=== PATIENT | female | born 1930 | race Hispanic/Latino ===

== ENCOUNTER 2016-07-30 18:20 | Inpatient (IN) | payer MEDICARE ==
[2016-07-30 18:20] VITALS: PULSE 161; BMI 28.6
[2016-07-30] MEDS ORDERED: Albuterol-Ipratrop 3 mg / 0.5 (3 ml) UD ONE (18:46)
[2016-07-30] MEDS ORDERED: Albuterol-Ipratrop 3 mg / 0.5 (3 ml) UD INH STA (18:50)
[2016-07-30 19:14] LABS: ABG ALLEN TEST YES; ARTERIAL BLOOD GAS O2 SAT 98.5 % (95-98); ARTERIAL BLOOD GAS PCO2 35 mm/Hg (35-45); ARTERIAL BLOOD GAS PH 7.46 (7.35-7.45); ARTERIAL BLOOD GAS PO2 81 mm/Hg (80-100)
[2016-07-30 19:33] LABS: BASO # 0.1 K/uL (0.0-0.2); BASO % 0.6 % (0.0-2.0); EOS # 0.2 K/uL (0.0-0.7); EOS % 1.9 % (0.0-4.0); HEMOGLOBIN 12.5 g/dL (12.0-16.0); LYMPH # 1.7 K/uL (1.0-4.3); LYMPH % 14.9 % (20.0-40.0); MEAN CELL VOLUME 92.2 fl (81.0-99.0); MEAN CORPUSCULAR HEMOGLOBIN 29.5 pg (27.0-31.0); MEAN CORPUSCULAR HGB CONC 31.9 g/dL (33.0-37.0); MEAN PLATELET VOLUME 7.7 fl (7.2-11.7); MONO # 1.5 K/uL (0.0-0.8); MONO % 12.7 % (0.0-10.0); NEUT # 8.2 K/uL (1.8-7.0); NEUT % 69.9 % (50.0-75.0); NRBC % 0.2 % (0.0-0.0); RBC 4.24 Mil/uL (3.80-5.20); RED CELL DISTRIBUTION WIDTH 14.1 % (11.5-14.5); WHITE BLOOD COUNT 11.7 K/uL (4.8-10.8)
[2016-07-30 19:45] LABS: INR 1.3 (0.9-1.2); PARTIAL THROMBOPLASTIN TIME 26.5 Seconds (25.6-37.1); PROTHROMBIN TIME 15.1 Seconds (9.8-13.1)
--- NOTE | 2016-07-30 19:46 | ED PDOC ---
HPI: SOB/CHF/COPD Time Seen by Provider: 07/30/16 18:31 Chief Complaint (Nursing): Cough, Cold, Congestion Chief Complaint (Provider): Cough History Per: Patient History/Exam Limitations: no limitations Onset/Duration Of Symptoms: Days (2 days) Current Symptoms Are (Timing): Still Present Associated Symptoms: denies: Fever, Chest Pain, Ankle/Leg Swelling Additional Complaint(s): Geraldine Mark, an 85 year old female, who has a PMHx of atrial fibrillation, Congestive Heart failure, coronary artery disease and a pacemaker presents to the ED with a cough(x2 days). The patient states that her cough is productive of yellow phlegm with no hemoptysis. She reports that she feels as though her chest is congested and she has a little bit of a sore throat. The patient states that she in in compliance with her medication. Denies increase of leg swelling, fever and outright chest pain. She reports definite fatigue and SOB. PMD: Dr. Gooden Past Medical History Reviewed: Historical Data, Nursing Documentation, Vital Signs Vital Signs: Last Vital Signs Temp 98.2 F 08/05/16 12:00 Pulse 60 08/05/16 12:00 Resp 31 H 08/05/16 12:00 BP 116/54 L 08/05/16 12:00 Pulse Ox 100 08/05/16 12:00 - Medical History PMH: Anemia, Anxiety, Arthritis, Atrial Fibrillation, CAD, Cardia Arrhythmia, CHF, Depression, Diverticulitis, HTN, Hypercholesterolemia, Pneumonia Denies: Chronic Kidney Disease - Surgical History Surgical History: Pacemaker - Family History Family History: States: Hypertension - Social History Current smoker - smoking cessation education provided: No Ex-Smoker (has not smoked in the last 12 months): No - Immunization History Hx Tetanus Toxoid Vaccination: No Hx Influenza Vaccination: No Hx Pneumococcal Vaccination: No - Home Medications Home Medications: Ambulatory Orders Medication Instructions Recorded Carvedilol [Coreg] 3.125 mg PO BID 07/18/15 Furosemide [Lasix] 20 mg PO DAILY 07/18/15 Potassium Chloride [K-Dur 20 mEq 20 meq PO DAILY 07/18/15 ER Tab] Simvastatin 20 mg PO DAILY 07/18/15 Azithromycin [Zithromax] 250 mg PO DAILY #3 tab 08/01/16 Ciprofloxacin 0.3% [Ciloxan 0.3% 1 drop OD Q4 bottle 08/01/16 Ophth SOLN] guaiFENesin/Dextromethorphan 1 tab PO BID #20 tab 08/01/16 [Mucinex-DM 600-30 mg] risperiDONE [RisperDAL Tab] 0.25 mg PO HS tab 08/01/16 - Allergies Allergies/Adverse Reactions: Allergies Allergy/AdvReac Type Severity Reaction Status Date / Time No Known Allergies Allergy Verified 07/30/16 18:25 Review of Systems ROS Statement: Except As Marked, All Systems Reviewed And Found Negative Constitutional: Positive for: Other (Fatigue). Negative for: Fever ENT: Positive for: Throat Pain Cardiovascular: Negative for: Chest Pain Respiratory: Positive for: Cough, Shortness of Breath Musculoskeletal: Negative for: Other (Leg swelling) Physical Exam - Reviewed Nursing Documentation Reviewed: Yes Vital Signs Reviewed: Yes - Physical Exam Appears: Positive for: Non-toxic, Uncomfortable Head Exam: Positive for: ATRAUMATIC, NORMOCEPHALIC Skin: Positive for: Normal Color, Warm, Dry Eye Exam: Positive for: Normal appearance, EOMI, PERRL ENT: Positive for: Normal ENT Inspection, Pharynx Is (Pharynx is clear), Other ( Mucous membranes are dry.) Neck: Positive for: Normal, Painless ROM, Supple Cardiovascular/Chest: Positive for: Regular Rate, Rhythm (Heart sounds distant with regular rate and rhythm.), Chest Non Tender. Negative for: Tachycardia Respiratory: Positive for: Rhonchi (Diffuse ronchi), Wheezing (Expiratory wheezing), Respiratory Distress (Mild respiratory distress). Negative for: Accessory Muscle Use Gastrointestinal/Abdominal: Positive for: Normal Exam, Bowel Sounds, Soft. Negative for: Tenderness, Guarding, Rebound Back: Positive for: Normal Inspection Extremity: Positive for: Pedal Edema (Trace bilateral lower leg edema.). Negative for: Tenderness, Deformity Neurologic/Psych: Positive for: Alert, Oriented, Gait - Laboratory Results Result Diagrams: 08/05/16 04:15 08/05/16 04:15 - ECG ECG: Positive for: Interpreted By Id ECG Rhythm: Positive for: Atrial Paced O2 Sat by Pulse Oximetry: 94 (RA) Pulse Ox Interpretation: Normal - Radiology X-Ray: Interpreted by Id X-Ray Interpretation: Infiltrates Medical Decision Making Medical Decision Makin:31 Initial Impression: 85 year old female presenting with cough and SOB Differentials: Pneumonia, CHF, Bronchitis, Pleural effusions, Acute coronary syndrome Initial plan: * Type and Screen * ABG Shock Panel * EKG * Natriuretic Peptide * CMP * Troponin 1 * Udip * CBC * Partial Thromboplastin * Prothrombin time * CXR * Blood Culture * Duoneb 3 mg/0.5mg (3ml) UD 6ml INH * Peak Flow Pre/Post Tx. Pre/post treatment * Reevaluation CXR demonstrated infiltrate DW Dr Johnson FP resident admitting for Dr Gooden. Pt hospitalized to telemetry for monitoring given multiple comorbidities and age as risk factors for complications. Antibiotics initiated in ER Scribe Attestation Documented by Nazia Cabrera acting as a scribe for Hailey Medrano MD. Provider Attestation All medical record entries made by the Scribe were at my direction and personally dictated by me. I have reviewed the chart and agree that the record accurately reflects my personal performance of the history, physical exam, medical decision making, and the department course for this patient. I have also personally directed, reviewed, and agree with the discharge instructions and disposition. Disposition - Clinical Impression Clinical Impression: Pneumonia, community acquired, CHF (congestive heart failure) - Patient ED Disposition Is Patient to be Admitted: Yes Counseled Patient/Family Regarding: Studies Performed, Diagnosis - Disposition Disposition Time: 20:00 Condition: GUARDED - Pt Status Changed To: Hospital Disposition Of: Inpatient - Admit Certification Admit to Inpatient:: After my assessment, the patient will require hospitalization for at least two midnights. This is because of the severity of symptoms shown, intensity of services needed, and/or the medical risk in this patient being treated as an outpatient. - POA Present On Arrival: None
[2016-07-30 19:51] LABS: ALB/GLOB RATIO 1.2 (1.0-2.1); ALBUMIN 3.6 g/dL (3.5-5.0); ALT/SGPT 36 U/L (9-52); AST/SGOT 29 U/L (14-36); BLOOD UREA NITROGEN 12 mg/dl (7-17); CALCIUM 8.6 mg/dL (8.4-10.2); GFR AFRICAN-AMERICAN > 60; GFR NON-AFRICAN AMERICAN > 60
[2016-07-30 20:02] LABS: B-TYPE NATRIURETIC PEPTIDE 8210 pg/ml (0-900)
[2016-07-30] MEDS ORDERED: cefTRIAXone (Rocephin) 1 gm Inj ONE (20:28)
--- NOTE | 2016-07-30 21:29 | CP.PCM.HP ---
<Senait Storm - Last Filed: 07/31/16 02:30> History of Present Illness - History of Present Illness History of Present Illness: CC: Constant productive cough 85F with significant cardiac history p/w persistent cough productive of yellowish sputum since Friday. -ve: cough worsening with lying down or at night, fevers, chills, N/V, diarrhea , sick contacts, abd pain, dysuria, chest pain, palpitations, recent hospitalization, recent antibiotic use, recent travel, sick contacts, ear pain, throat pain, orthopnea, extremity edema Right eye is red with purulent discharge that patient reports has been that way for a couple days, but denies pain on movement or loss in visual acuity. PMD: Giacomo Cane Flume Watcher: Dr Jennifer DAVIS-65: 1 PMH: h/o A-fib, dCHF, IHSS, Inferior wall MD, HTN, HLD, RCA stent, diverticulitis PSH: Rt knee for patellar fx, PCI of RCA, AICD Smoke: Never ALL: NKDA CHERYL: See Med Rec ED COURSE VSS: 36.7- 79- 131/50- 16- 94% CBC: 11.7>12.5/39.1<254 Lactate: 1.1 BNP: 8210H Trop #1: 0.0400 CMP: 135/4.4- 101/24- 12/0.7, Gluc- 81, Ca- 8.6, TBili- 0.3, ALP/AST/ALT- 107/29 /36, TProt/Alb- 6.6/3.6 BCx: PENDING CXR: not officially read, but when compared to prior angles/heart borders are clear, no venous congestion noted and no discrete infiltrate noted as read by me Albuterol x1 Azithromycin x1 Rocephin x1 Present on Admission - Present on Admission Any Indicators Present on Admission: No Review of Systems - Review of Systems All systems: reviewed and no additional remarkable complaints except - Respiratory Respiratory: Cough, Chest Congestion Past Patient History - Tetanus Immunizations Tetanus Immunization: Unknown - Past Medical History & Family History Past Medical History?: Yes - Past Social History Smoking Status: Never Smoked - CARDIAC Hx Atrial Fibrillation: Yes Hx Cardia Arrhythmia: Yes Hx Congestive Heart Failure: Yes Hx Hypercholesterolemia: Yes Hx Hypertension: Yes Hx Pacemaker: Yes - PULMONARY Hx Pneumonia: Yes - NEUROLOGICAL Hx Neurological Disorder: Yes (dizziness) - HEENT Hx HEENT Problems: No - RENAL Hx Chronic Kidney Disease: No - ENDOCRINE/METABOLIC Hx Endocrine Disorders: No - HEMATOLOGICAL/ONCOLOGICAL Hx Anemia: Yes - INTEGUMENTARY Hx Dermatological Problems: No - MUSCULOSKELETAL/RHEUMATOLOGICAL Hx Arthritis: Yes - GASTROINTESTINAL Hx Diverticulitis: Yes - GENITOURINARY/GYNECOLOGICAL Hx Genitourinary Disorders: No (hx UTI) - PSYCHIATRIC Hx Anxiety: Yes Hx Depression: Yes - SURGICAL HISTORY Hx Orthopedic Surgery: Yes (RIGHT KNEE SURGERY) Other/Comment: CARDIAC CATH - ANESTHESIA Hx Anesthesia: Yes Hx Anesthesia Reactions: No Hx Malignant Hyperthermia: No Meds Allergies/Adverse Reactions: Allergies Allergy/AdvReac Type Severity Reaction Status Date / Time No Known Allergies Allergy Verified 07/30/16 18:25 Physical Exam - Constitutional Appears: Well, Non-toxic, No Acute Distress - Head Exam Head Exam: ATRAUMATIC, NORMAL INSPECTION - Eye Exam Eye Exam: Conjunctival injection (RIGHT eye w/ associated purulent discharge), EOMI, Normal appearance, PERRL - ENT Exam ENT Exam: Mucous Membranes Moist, Normal Exam, Normal Oropharynx - Neck Exam Neck exam: Positive for: Normal Inspection. Negative for: Lymphadenopathy - Respiratory Exam Respiratory Exam: Rhonchi, NORMAL BREATHING PATTERN (LEFT chest site for AICD). absent: Rales, Wheezes, Respiratory Distress - Cardiovascular Exam Cardiovascular Exam: REGULAR RHYTHM (Paced), Systolic Murmur. absent: JVD - GI/Abdominal Exam GI & Abdominal Exam: Normal Bowel Sounds, Soft. absent: Tenderness - Extremities Exam Extremities exam: Positive for: full ROM, normal capillary refill, normal inspection, pedal edema (TRACE), pedal pulses present - Back Exam Back exam: absent: CVA tenderness (L), CVA tenderness (R) - Neurological Exam Neurological exam: Alert, Oriented x3 - Psychiatric Exam Psychiatric exam: Flat Affect, Normal Mood - Skin Skin Exam: Normal Color, Warm Results - Vital Signs Recent Vital Signs: Last Vital Signs Temp 36.7 C 07/30/16 18:25 Pulse 72 07/30/16 21:20 Resp 16 07/30/16 21:20 BP 116/51 L 07/30/16 21:20 Pulse Ox 98 07/30/16 21:20 - Labs Result Diagrams: 07/30/16 19:10 07/30/16 19:10 Assessment & Plan (1) Pneumonia, community acquired Assessment and Plan: Clinical presentation, history, and physical exam most consistent with CAP. CURB -65: 1. - Rocephin 1g, IV, Daily - Azithromycin 500mg, IV, Daily - f/u BCx - Incentive Spirometry - Ambulate Status: Acute (2) Bacterial conjunctivitis of right eye Assessment and Plan: Ciprofloxacin 0.3% 1-2gtts, Q2H x2 days then Q4H for remaining 5 days Status: Acute (3) DVT prophylaxis Assessment and Plan: Lovenox 40mg, SC, HS Status: Acute (4) History of atrial fibrillation Assessment and Plan: Currently atrial sensed pacemaker. - Resume home medication Status: Chronic (5) CHF (congestive heart failure) Assessment and Plan: Clinically patient does not have an acute exacerbation of heart failure. In addition, CXR not c/w venous congestion when compared to prior CXR, despite BNP level being elevated. Echo (11/23/2014) showing abnormal relaxation pattern as well as decrease in EF (45-50%). - Resume Coreg - Resume Lasix Status: Chronic (6) Hypertension Assessment and Plan: Chronic, stable. - c/w Coreg - c/w Lasix Status: Chronic <Asim Gooden - Last Filed: 08/01/16 06:46> Results - Vital Signs Recent Vital Signs: Last Vital Signs Temp 98.9 F 08/01/16 05:00 Pulse 89 08/01/16 05:00 Resp 22 08/01/16 05:00 BP 108/54 L 08/01/16 05:00 Pulse Ox 92 L 08/01/16 05:00 - Labs Result Diagrams: 07/31/16 06:15 07/31/16 06:15 Labs: Laboratory Results - last 24 hr 07/31/16 07/31/16 07/31/16 06:15 06:15 07:04 WBC 11.8 H RBC 4.15 Hgb 12.3 Hct 38.2 MCV 92.0 MCH 29.5 MCHC 32.1 L RDW 13.9 Plt Count 249 MPV 8.1 Neut % (Auto) 74.2 Lymph % (Auto) 12.2 L [place] % (Auto) 12.1 H Eos % (Auto) 1.2 Baso % (Auto) 0.3 Neut # 8.8 H Lymph # 1.4 [place] # 1.4 H Eos # 0.1 Baso # 0.0 Sodium 139 Potassium 4.1 Chloride 105 Carbon Dioxide 25 Anion Gap 13 BUN 10 Creatinine 0.7 Est GFR ( Amer) > 60 Est GFR (Non-Af Amer) > 60 Random Glucose 91 Calcium 8.7 Troponin I 0.0450 Procalcitonin 0.06 L 07/31/16 11:59 WBC RBC Hgb Hct MCV MCH MCHC RDW Plt Count MPV Neut % (Auto) Lymph % (Auto) [place] % (Auto) Eos % (Auto) Baso % (Auto) Neut # Lymph # [place] # Eos # Baso # Sodium Potassium Chloride Carbon Dioxide Anion Gap BUN Creatinine Est GFR ( Amer) Est GFR (Non-Af Amer) Random Glucose Calcium Troponin I 0.0340 Procalcitonin Attending/Attestation - Attestation I have personally seen and examined this patient.: Yes I have fully participated in the care of the patient.: Yes I have reviewed all pertinent clinical information: Yes
[2016-07-30] MEDS: Enoxaparin 40 mg Syringe SC SCH (23:38)
[2016-07-31] MEDS ORDERED: guaiFENesin 200 mg/10 ml Syrup UD PO ONE (02:36)
[2016-07-31] MEDS: Ciprofloxacin 0.3% OPTH SOLN OD SCH ×10 (04:49→22:37)
[2016-07-31] MEDS ORDERED: Sodium Chloride 3% for Inhalation 4 ML VIAL.NEB IH PRN (05:21)
[2016-07-31 07:02] LABS: BASO % 0.3 % (0.0-2.0); EOS # 0.1 K/uL (0.0-0.7); EOS % 1.2 % (0.0-4.0); HEMOGLOBIN 12.3 g/dL (12.0-16.0); LYMPH # 1.4 K/uL (1.0-4.3); LYMPH % 12.2 % (20.0-40.0); MEAN CORPUSCULAR HEMOGLOBIN 29.5 pg (27.0-31.0); MEAN CORPUSCULAR HGB CONC 32.1 g/dL (33.0-37.0); MEAN PLATELET VOLUME 8.1 fl (7.2-11.7); MONO # 1.4 K/uL (0.0-0.8); MONO % 12.1 % (0.0-10.0); NEUT # 8.8 K/uL (1.8-7.0); NEUT % 74.2 % (50.0-75.0); RBC 4.15 Mil/uL (3.80-5.20); RED CELL DISTRIBUTION WIDTH 13.9 % (11.5-14.5); WHITE BLOOD COUNT 11.8 K/uL (4.8-10.8)
[2016-07-31 07:06] LABS: BLOOD UREA NITROGEN 10 mg/dl (7-17); CALCIUM 8.7 mg/dL (8.4-10.2); GFR AFRICAN-AMERICAN > 60; GFR NON-AFRICAN AMERICAN > 60
[2016-07-31] MEDS ORDERED: Pneumococcal 23-Valent Vaccine IM ONE (07:34)
[2016-07-31] MEDS ORDERED: Patient's Own Med (Simvastatin [Simvastatin] 20 MG) PO SCH (09:00)
[2016-07-31] MEDS: Azithromycin 500 MG in Sodium Chloride 0.9% 250 ML IVPB SCH (09:00)
--- NOTE | 2016-07-31 09:03 | CP.PCM.PN ---
<Sammy Ontiveros - Last Filed: 07/31/16 17:26> Subjective - Date & Time of Evaluation Date of Evaluation: 07/31/16 Time of Evaluation: 07:25 - Subjective Subjective: Patient seen and examined this AM. Patient continues to have nonproductive cough. Complaining of mild headache. Denies any chest pain, dyspnea, nausea, vomiting, abdominal pain, pedal edema. Objective - Vital Signs/Intake and Output Vital Signs (last 24 hours): Temp Pulse Resp BP Pulse Ox 100.6 F H 80 19 93/51 L 95 07/31/16 05:50 07/31/16 04:52 07/31/16 04:52 07/31/16 04:52 07/31/16 04:52 - Medications Medications: Current Medications Albuterol/Ipratropium (Duoneb 3 Mg/0.5 Mg (3 Ml) Ud) 3 ml INH RQID [facility] Atorvastatin Calcium (Lipitor) 10 mg PO DAILY [facility] Carvedilol (Coreg) 3.125 mg PO BID [facility] Ciprofloxacin (Ciloxan 0.3% Ophth Soln) 1 drop OD Q2 [facility] Stop: 08/02/16 04:00 Last Admin: 07/31/16 06:00 Dose: Not Given Enoxaparin Sodium (Lovenox) 40 mg SC HS [facility] PRN Reason: Protocol Last Admin: 07/30/16 23:38 Dose: 40 mg Furosemide (Lasix) 20 mg PO DAILY [facility] Ceftriaxone Sodium 1 gm/ (Sodium Chloride) 100 mls @ 100 mls/hr IVPB DAILY [facility] Azithromycin 500 mg/ Sodium (Chloride) 250 mls @ 250 mls/hr IVPB DAILY [facility] Potassium Chloride (K-Dur 20 Meq Er Tab) 20 meq PO DAILY [facility] Risperidone (Risperdal Tab) 0.5 mg PO HS [facility] Last Admin: 07/30/16 23:38 Dose: 0.5 mg - Labs Labs: 07/31/16 06:15 07/31/16 06:15 PT 15.1 Seconds (9.8-13.1) H 07/30/16 19:10 INR 1.3 (0.9-1.2) H 07/30/16 19:10 APTT 26.5 Seconds (25.6-37.1) 07/30/16 19:10 - Constitutional Appears: Other (dry cough, no respiratory distress. ) - Eye Exam Pupil Exam: absent: Miosis Additional comments: purulent discharge, scleral injection, mild periobital erythema - Respiratory Exam Respiratory Exam: Wheezes (right mid lung wheezing and crackles, left chest decreased breath sounds.). absent: Respiratory Distress - Cardiovascular Exam Cardiovascular Exam: REGULAR RHYTHM, +S1, +S2 - GI/Abdominal Exam GI & Abdominal Exam: Soft, Normal Bowel Sounds. absent: Distended, Tenderness - Neurological Exam Neurological Exam: Awake, CN II-XII Intact - Psychiatric Exam Psychiatric exam: Flat Affect - Skin Skin Exam: Dry, Intact Assessment and Plan - Assessment and Plan (Free Text) Assessment: (1) Pneumonia, community acquired Assessment and Plan: Improved, continues to have cough, non productive with wheezing/crackles. CURB- 65: 1. - Rocephin 1g, IV, Daily - Azithromycin 500mg, IV, Daily - f/u BCx, sputum culture - mycoplasma IgG - Incentive Spirometry - duonebs QID - Ambulate -cxr reviewed, WBC: 11.8 -cbc/bmp in AM Status: Acute (2) Bacterial conjunctivitis of right eye Assessment and Plan: DAY 2: Ciprofloxacin 0.3% 1-2gtts, Q2H x2 days then Q4H for remaining 5 days Status: Acute (3) DVT prophylaxis Assessment and Plan: Lovenox 40mg, SC, HS Status: Acute (4) History of atrial fibrillation Assessment and Plan: Currently atrial sensed pacemaker. - Resume home medication Status: Chronic (5) CHF (congestive heart failure) Assessment and Plan: Not in acute exacerbation, BNP elevated however chest xray not c/w and exam is consistent with pneumonia not CHF. Echo (11/23/2014) showing abnormal relaxation pattern as well as decrease in EF (45-50%). - continue Coreg 3.125mg BID - hold Lasix 20mg - Potassium 20meq daily - simvastatin 20meq qhs -Cardiology consult: Dr. Rodriguez, recommendations appreciated. Status: Chronic (6) Hypertension Assessment and Plan: Chronic, stable. - c/w Coreg - c/w Lasix Status: Chronic (7) Biplolar disorder -risperdal 0.25 qhs <Asim Gooden - Last Filed: 08/01/16 06:48> Objective - Vital Signs/Intake and Output Vital Signs (last 24 hours): Temp Pulse Resp BP Pulse Ox 98.9 F 89 22 108/54 L 92 L 08/01/16 05:00 08/01/16 05:00 08/01/16 05:00 08/01/16 05:00 08/01/16 05:00 Intake and Output: 07/31/16 08/01/16 18:59 06:59 Intake Total 1550 Balance 1550 - Medications Medications: Current Medications Acetaminophen (Tylenol 325mg Tab) 650 mg PO Q6 PRN PRN Reason: Headache Albuterol/Ipratropium (Duoneb 3 Mg/0.5 Mg (3 Ml) Ud) 3 ml INH RQID [facility] Last Admin: 07/31/16 19:23 Dose: 3 ml Atorvastatin Calcium (Lipitor) 10 mg PO DAILY [facility] Last Admin: 07/31/16 09:07 Dose: 10 mg Carvedilol (Coreg) 3.125 mg PO BID [facility] Last Admin: 07/31/16 09:06 Dose: Not Given Ciprofloxacin (Ciloxan 0.3% [facility] Soln) 1 drop OD Q2 [facility] Stop: 08/02/16 04:00 Last Admin: 08/01/16 06:11 Dose: 1 drop Enoxaparin Sodium (Lovenox) 40 mg SC HS [facility] PRN Reason: Protocol Last Admin: 07/31/16 21:06 Dose: 40 mg Ceftriaxone Sodium 1 gm/ (Sodium Chloride) 100 mls @ 100 mls/hr IVPB DAILY [facility] Last Admin: 07/31/16 09:00 Dose: 100 mls/hr Azithromycin 500 mg/ Sodium (Chloride) 250 mls @ 250 mls/hr IVPB DAILY [facility] Last Admin: 07/31/16 09:00 Dose: 250 mls/hr Potassium Chloride (K-Dur 20 Meq Er Tab) 20 meq PO DAILY [facility] Last Admin: 07/31/16 09:06 Dose: 20 meq Risperidone (Risperdal Tab) 0.25 mg PO HS [facility] Last Admin: 07/31/16 21:05 Dose: 0.25 mg - Labs Labs: 07/31/16 06:15 07/31/16 06:15 PT 15.1 Seconds (9.8-13.1) H 07/30/16 19:10 INR 1.3 (0.9-1.2) H 07/30/16 19:10 APTT 26.5 Seconds (25.6-37.1) 07/30/16 19:10 Attending/Attestation - Attestation I have personally seen and examined this patient.: Yes I have fully participated in the care of the patient.: Yes I have reviewed all pertinent clinical information, including history, physical exam and plan: Yes
[2016-07-31] MEDS: Albuterol-Ipratrop 3 mg / 0.5 (3 ml) UD INH SCH ×4 (09:05→19:23)
[2016-07-31] MEDS: Potassium Chloride 20 mEq ER Tab PO SCH (09:06)
--- NOTE | 2016-07-31 09:30 | CP.PCM.CON ---
History of Present Illness - History of Present Illness History of Present Illness: Full Note Dictated Pneumonia IHSS H/O A Fib (was ablated) S/P AICD Implant with a DDD Pacemaker S/P RCA Stenting > 2 yrs back LV diastolic dysfunction with LV Failure (Chr) Stable from cardiac point of view [facility] Past Patient History - Tetanus Immunizations Tetanus Immunization: Unknown - Past Medical History & Family History Past Medical History?: Yes - Past Social History Smoking Status: Never Smoked - CARDIAC Hx Atrial Fibrillation: Yes Hx Cardia Arrhythmia: Yes Hx Congestive Heart Failure: Yes Hx Hypercholesterolemia: Yes Hx Hypertension: Yes Hx Pacemaker: Yes - PULMONARY Hx Pneumonia: Yes - NEUROLOGICAL Hx Neurological Disorder: Yes (dizziness) - HEENT Hx HEENT Problems: No - RENAL Hx Chronic Kidney Disease: No - ENDOCRINE/METABOLIC Hx Endocrine Disorders: No - HEMATOLOGICAL/ONCOLOGICAL Hx Anemia: Yes - INTEGUMENTARY Hx Dermatological Problems: No - MUSCULOSKELETAL/RHEUMATOLOGICAL Hx Arthritis: Yes - GASTROINTESTINAL Hx Diverticulitis: Yes - GENITOURINARY/GYNECOLOGICAL Hx Genitourinary Disorders: No (hx UTI) - PSYCHIATRIC Hx Anxiety: Yes Hx Depression: Yes - SURGICAL HISTORY Hx Orthopedic Surgery: Yes (RIGHT KNEE SURGERY) Other/Comment: CARDIAC CATH - ANESTHESIA Hx Anesthesia: Yes Hx Anesthesia Reactions: No Hx Malignant Hyperthermia: No Meds Allergies/Adverse Reactions: Allergies Allergy/AdvReac Type Severity Reaction Status Date / Time No Known Allergies Allergy Verified 07/30/16 18:25 - Medications Medications: Current Medications Albuterol/Ipratropium (Duoneb 3 Mg/0.5 Mg (3 Ml) Ud) 3 ml INH RQID [facility] Last Admin: 07/31/16 09:05 Dose: 3 ml Atorvastatin Calcium (Lipitor) 10 mg PO DAILY [facility] Last Admin: 07/31/16 09:07 Dose: 10 mg Carvedilol (Coreg) 3.125 mg PO BID [facility] Last Admin: 07/31/16 09:06 Dose: Not Given Ciprofloxacin (Ciloxan 0.3% Oph Soln) 1 drop OD Q2 [facility] Stop: 08/02/16 04:00 Last Admin: 07/31/16 08:04 Dose: 1 drop Enoxaparin Sodium (Lovenox) 40 mg SC HS [facility] PRN Reason: Protocol Last Admin: 07/30/16 23:38 Dose: 40 mg Ceftriaxone Sodium 1 gm/ (Sodium Chloride) 100 mls @ 100 mls/hr IVPB DAILY [facility] Last Admin: 07/31/16 09:00 Dose: 100 mls/hr Azithromycin 500 mg/ Sodium (Chloride) 250 mls @ 250 mls/hr IVPB DAILY [facility] Last Admin: 07/31/16 09:00 Dose: 250 mls/hr Potassium Chloride (K-Dur 20 Meq Er Tab) 20 meq PO DAILY [facility] Last Admin: 07/31/16 09:06 Dose: 20 meq Risperidone (Risperdal Tab) 0.5 mg PO HS [facility] Last Admin: 07/30/16 23:38 Dose: 0.5 mg Results - Vital Signs Recent Vital Signs: Last Vital Signs Temp 98.1 F 07/31/16 09:00 Pulse 71 07/31/16 09:06 Resp 18 07/31/16 09:00 BP 91/47 L 07/31/16 09:06 Pulse Ox 95 07/31/16 09:00 - Labs Result Diagrams: 07/31/16 06:15 07/31/16 06:15 Labs: Laboratory Results - last 24 hr 07/31/16 07/31/16 06:15 06:15 WBC 11.8 H RBC 4.15 Hgb 12.3 Hct 38.2 MCV 92.0 MCH 29.5 MCHC 32.1 L RDW 13.9 Plt Count 249 MPV 8.1 Neut % (Auto) 74.2 Lymph % (Auto) 12.2 L [place] % (Auto) 12.1 H Eos % (Auto) 1.2 Baso % (Auto) 0.3 Neut # 8.8 H Lymph # 1.4 [place] # 1.4 H Eos # 0.1 Baso # 0.0 Sodium 139 Potassium 4.1 Chloride 105 Carbon Dioxide 25 Anion Gap 13 BUN 10 Creatinine 0.7 Est GFR ( Amer) > 60 Est GFR (Non-Af Amer) > 60 Random Glucose 91 Calcium 8.7 Troponin I 0.0450
--- NOTE | 2016-07-31 10:30 | CON ---
DATE: 07/31/2016 She is hospitalized under Dr. Pathak's care in room 418, bed 1. This 85-year-old female known to me over the last 10-15 years, hypertensive with known idiopathic hypertrophic subaortic stenosis, who required an AICD implant after she had ventricular tachycardia during an episode of acute myocardial infarction, which required a right coronary stenting. The patient had had atrial fibrillation as well, and she underwent an ablation procedure. At this point, she has an AICD with a DDD pacemaker and is usually in atrial- sensed ventricular-paced mode. 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 She has never been a smoker, and has never been diagnosed as having diabetes mellitus. The patient also has psychiatric issues, and she has been taking Risperdal for a number of years. The patient recently developed a cough and fever with chills, came in to the Emergency Room and was diagnosed to have pneumonemia, admits that her fluid intake has been poor during the last 3-4 days even though she has continued to take 20 mg of furosemide every day. She was never a smoker. PHYSICAL EXAMINATION: GENERAL: Shows an elderly lady, alert, awake, coherent. VITAL SIGNS: Afebrile at this point. Breathes at 16-18 breaths per minute, has a heart rate of 78 beats per minute - regular, and a blood pressure of 100/ 70 mmHg. NECK: Her jugular venous pressure was not elevated. EXTREMITIES: There was no edema of the lower extremity. The pedal pulses were well-felt. HEART: There were no carotid bruits. An apical systolic murmur was audible in the left second intercostal space in the parasternal area with preserved second heart sound. There was no S3 gallop. LUNGS: There were coarse crepitations, particularly at the right base. ABDOMEN: Soft. Liver and spleen were not palpable. Her electrocardiogram showed sinus rhythm with an atrial-sensed ventricular- paced rhythm. Her chest x-ray was noted. Review of her echocardiogram from 12/22/2014 showed evidence of IHSS, and anterior systolic motion of the anterior mitral leaflet with a gradient of 190 mmHg in the left ventricular outflow tract. LABORATORY DATA: On arrival in the Emergency Room did show a mild leukocytosis with a WBC count of 11,700 of which 69% was neutrophils, and 12.7% was monocytes. Her BUN and creatinine, on arrival in the hospital, were 12 and 0.7 mg percent. Today, they were 10 and 0.7 mg percent. Electrolytes were normal. Troponins were negative for any evidence of myocyte injury. Her proBNP was 8210 pg/mL. Liver profile was normal. IMPRESSION: At this time is pneumonia in a patient with history of idiopathic hypertrophic subaortic stenosis, status post right coronary stent, status post automatic implantable cardiac defibrillator implant with DDD pacemaker, history of atrial fibrillation with ablation procedure and congestive heart failure, which is left ventricular diastolic and chronic. The patient admits to poor fluid intake for the last few days, and the systolic blood pressure is barely 100 mmHg. I have withheld her diuretic since she will be under observation in the hospital and does not show any evidence of volume overload. Otherwise, she is stable from cardiovascular point of view. Joe Rodriguez MD cc: 23 TT: 07/31/2016 10:29:22 Confirmation # [id number] Dictation # [id number] MTDD
--- NOTE | 2016-07-31 11:59 | RAD ---
HISTORY: Shortness of breath. COMPARISON: 07/18/2015. FINDINGS: LUNGS: No active pulmonary disease. PLEURA: No significant pleural effusion identified, no pneumothorax apparent. CARDIOVASCULAR: Cardiomegaly. No evidence of acute, significant cardiovascular disease. Position/ configuration of pacemaker Satisfactory. OSSEOUS STRUCTURES: No significant abnormalities. VISUALIZED UPPER ABDOMEN: Normal. OTHER FINDINGS: None. IMPRESSION: No active disease. No significant interval change compared to the prior examination(s).
--- NOTE | 2016-07-31 12:03 | RAD ---
HISTORY: Pneumonia. COMPARISON: 07/30/2016. TECHNIQUE: Chest PA and lateral FINDINGS: LUNGS: No active pulmonary disease. PLEURA: No significant pleural effusion identified. No pneumothorax apparent. CARDIOVASCULAR: Cardiomegaly. No evidence of acute, significant cardiovascular disease. OSSEOUS STRUCTURES: No significant abnormalities. VISUALIZED UPPER ABDOMEN: Normal. OTHER FINDINGS: None. IMPRESSION: No active disease. BMD changes compared to the prior studyNo significant interval change compared to the prior examination(s).
--- NOTE | 2016-07-31 15:26 | CARD ---
APPROVED REPORT EKG Measurement Heart [id number] NM [id number] <Conclusion> Atrial-sensed ventricular-paced rhythm with prolonged AV conduction Abnormal ECG
[2016-07-31] MEDS: Enoxaparin 40 mg Syringe SC SCH (21:06)
[2016-08-01] MEDS: Ciprofloxacin 0.3% OPTH SOLN OD SCH ×10 (00:17→20:18)
--- NOTE | 2016-08-01 06:39 | CP.PCM.PN ---
Addendum entered and electronically signed by Sammy Ontiveros MD 08/01/16 19: 34: S: Alerted by nurse about change in mental status. Evaluated patient that was lying bed, easily arousable. Patient reported feeling tired, thirsty. Did not eat lunch due to fatigue and lack of appetite. O:Patients vital signs checked by me: spo2 94-98%, HR 51, BP 80/54, O2 at 2L NC. exam: general AAOx3, no distress chest: no wheezing/rhonchi, good air entry bilaterally, crackles right mid lung field cardio: bradycardia, S1S2+ Abd: soft, NT/ND Extremities: no pedal edema/tenderness a/p: 85 year old female with AICD , afib with bradycardia and hypotension. frame table operator reviewed-no pacing seen, HR 50s IVF: 250cc bolus. Pt to be transferred to ICU Discussed with Dr. Gooden, senior resident made aware. Original Note: <Sammy Ontiveros - Last Filed: 08/01/16 19:07> Subjective - Date & Time of Evaluation Date of Evaluation: 08/01/16 Time of Evaluation: 07:00 - Subjective Subjective: No acute events overnight. Patient seen and examined with Dr. Gooden and family medicine team. Cough persists, sputum starting to expectorate. Does not feel duonebs are helping but she feels better today. Denies chest pain, dyspnea, abdominal pain, n/v, pedal edema. Objective - Vital Signs/Intake and Output Vital Signs (last 24 hours): Temp Pulse Resp BP Pulse Ox 98.9 F 89 22 108/54 L 92 L 08/01/16 05:00 08/01/16 05:00 08/01/16 05:00 08/01/16 05:00 08/01/16 05:00 Intake and Output: 07/31/16 08/01/16 18:59 06:59 Intake Total 1550 Balance 1550 - Medications Medications: Current Medications Acetaminophen (Tylenol 325mg Tab) 650 mg PO Q6 PRN PRN Reason: Headache Albuterol/Ipratropium (Duoneb 3 Mg/0.5 Mg (3 Ml) Ud) 3 ml INH RQID [facility] Last Admin: 07/31/16 19:23 Dose: 3 ml Atorvastatin Calcium (Lipitor) 10 mg PO DAILY [facility] Last Admin: 07/31/16 09:07 Dose: 10 mg Carvedilol (Coreg) 3.125 mg PO BID [facility] Last Admin: 07/31/16 09:06 Dose: Not Given Ciprofloxacin (Ciloxan 0.3% Ophth Soln) 1 drop OD Q2 [facility] Stop: 08/02/16 04:00 Last Admin: 08/01/16 06:11 Dose: 1 drop Enoxaparin Sodium (Lovenox) 40 mg SC HS [facility] PRN Reason: Protocol Last Admin: 07/31/16 21:06 Dose: 40 mg Ceftriaxone Sodium 1 gm/ (Sodium Chloride) 100 mls @ 100 mls/hr IVPB DAILY [facility] Last Admin: 07/31/16 09:00 Dose: 100 mls/hr Azithromycin 500 mg/ Sodium (Chloride) 250 mls @ 250 mls/hr IVPB DAILY [facility] Last Admin: 07/31/16 09:00 Dose: 250 mls/hr Potassium Chloride (K-Dur 20 Meq Er Tab) 20 meq PO DAILY [facility] Last Admin: 07/31/16 09:06 Dose: 20 meq Risperidone (Risperdal Tab) 0.25 mg PO HS [facility] Last Admin: 07/31/16 21:05 Dose: 0.25 mg - Labs Labs: 07/31/16 06:15 07/31/16 06:15 PT 15.1 Seconds (9.8-13.1) H 07/30/16 19:10 INR 1.3 (0.9-1.2) H 07/30/16 19:10 APTT 26.5 Seconds (25.6-37.1) 07/30/16 19:10 - Constitutional Appears: No Acute Distress, Other (sitting upright in bed, coughing but in no acute respiratory distress. ) - Eye Exam Eye Exam: Normal appearance - Respiratory Exam Respiratory Exam: NORMAL BREATHING PATTERN. absent: Accessory Muscle Use, Rhonchi, Wheezes, Respiratory Distress Additional comments: good air entry bilaterally, mild crackled mid right lung field - Cardiovascular Exam Cardiovascular Exam: REGULAR RHYTHM, +S1, +S2 - GI/Abdominal Exam GI & Abdominal Exam: Soft. absent: Tenderness - Extremities Exam Extremities Exam: absent: Calf Tenderness, Pedal Edema - Neurological Exam Neurological Exam: Alert, Awake, CN II-XII Intact - Psychiatric Exam Psychiatric exam: Flat Affect - Skin Skin Exam: Dry, Intact, Normal Color Assessment and Plan - Assessment and Plan (Free Text) Assessment: 85 year old female admitted for CAP, improved symptoms and feeling better. She has been afebrile for last 24 hrs. leukocytosis 16.8, BMP reviewed (1) Pneumonia, community acquired Assessment and Plan: Improved, coughing with mild sputum production . CURB-65: 1. discontinue IV antibiotics, start PO Azithromycin 250mg once daily and continue for 3 days. - f/u BCx no growth to date, sputum culture pending - mycoplasma IgG pending - Incentive Spirometry - duonebs QID - Ambulate - cxr reviewed Status: Acute (2) Bacterial conjunctivitis of right eye Assessment and Plan: DAY 3: Ciprofloxacin 0.3% 1-2gtts, Q2H x2 days then Q4H for remaining 5 days -start q4h today Status: Acute (3) DVT prophylaxis Assessment and Plan: Lovenox 40mg, SC, HS Status: Acute (4) History of atrial fibrillation Assessment and Plan: Currently atrial sensed pacemaker. - Resume home medication Status: Chronic (5) CHF (congestive heart failure) Assessment and Plan: Not in acute exacerbation, BNP elevated however chest xray not c/w and exam is consistent with pneumonia not CHF. Echo (11/23/2014) showing abnormal relaxation pattern as well as decrease in EF (45-50%). - continue Coreg 3.125mg BID - hold Lasix 20mg - Potassium 20meq daily - simvastatin 20meq qhs -Cardiology consult: Dr. Rodriguez, recommendations appreciated. Status: Chronic (6) Hypertension Assessment and Plan: Chronic, stable. - c/w Coreg - c/w Lasix Status: Chronic (7) Biplolar disorder dose confirmed with [facility] -risperdal 0.25 qhs <Asim Gooden - Last Filed: 08/02/16 06:44> Objective - Vital Signs/Intake and Output Vital Signs (last 24 hours): Temp Pulse Resp BP Pulse Ox 98.2 F 50 L 38 H 118/44 L 92 L 08/02/16 04:00 08/02/16 06:00 08/02/16 06:00 08/02/16 06:00 08/02/16 06:00 Intake and Output: 08/01/16 08/02/16 18:59 06:59 Intake Total 500 0 Balance 500 0 - Medications Medications: Current Medications Acetaminophen (Tylenol 325mg Tab) 650 mg PO Q6 PRN PRN Reason: Headache Albuterol/Ipratropium (Duoneb 3 Mg/0.5 Mg (3 Ml) Ud) 3 ml INH Q6H [facility] Last Admin: 08/02/16 01:37 Dose: 3 ml Atorvastatin Calcium (Lipitor) 10 mg PO DAILY [facility] Last Admin: 08/01/16 09:03 Dose: 10 mg Azithromycin (Zithromax) 250 mg PO DAILY [facility] Stop: 08/04/16 09:01 Last Admin: 08/01/16 11:42 Dose: 250 mg Carvedilol (Coreg) 3.125 mg PO BID [facility] Last Admin: 08/01/16 18:22 Dose: Not Given Enoxaparin Sodium (Lovenox) 40 mg SC HS [facility] PRN Reason: Protocol Last Admin: 08/01/16 21:26 Dose: 40 mg Guaifenesin/Dextromethorphan (Mucinex-Dm 600-30 Mg) 1 tab PO BID [facility] Last Admin: 08/01/16 18:23 Dose: Not Given Potassium Chloride (K-Dur 20 Meq Er Tab) 20 meq PO DAILY [facility] Last Admin: 08/01/16 09:03 Dose: 20 meq Risperidone (Risperdal Tab) 0.25 mg PO HS [facility] Last Admin: 08/02/16 01:35 Dose: 0.25 mg - Labs Labs: 08/02/16 04:30 08/02/16 04:30 PT 15.1 Seconds (9.8-13.1) H 07/30/16 19:10 INR 1.3 (0.9-1.2) H 07/30/16 19:10 APTT 26.5 Seconds (25.6-37.1) 07/30/16 19:10 Attending/Attestation - Attestation I have personally seen and examined this patient.: Yes I have fully participated in the care of the patient.: Yes I have reviewed all pertinent clinical information, including history, physical exam and plan: Yes
[2016-08-01 06:59] LABS: BLOOD UREA NITROGEN 13 mg/dl (7-17); GFR AFRICAN-AMERICAN > 60; GFR NON-AFRICAN AMERICAN > 60
[2016-08-01 07:23] LABS: BASO # 0.1 K/uL (0.0-0.2); BASO % 0.5 % (0.0-2.0); EOS % 0.1 % (0.0-4.0); HEMOGLOBIN 12.9 g/dL (12.0-16.0); LYMPH # 1.6 K/uL (1.0-4.3); LYMPH % 9.9 % (20.0-40.0); MEAN CELL VOLUME 92.5 fl (81.0-99.0); MEAN CORPUSCULAR HEMOGLOBIN 29.9 pg (27.0-31.0); MEAN CORPUSCULAR HGB CONC 32.4 g/dL (33.0-37.0); MEAN PLATELET VOLUME 7.7 fl (7.2-11.7); MONO # 1.7 K/uL (0.0-0.8); NEUT # 13.2 K/uL (1.8-7.0); NEUT % 79.5 % (50.0-75.0); PLATELET COUNT 266 K/uL (130-400); RBC 4.29 Mil/uL (3.80-5.20); WHITE BLOOD COUNT 16.7 K/uL (4.8-10.8)
[2016-08-01] MEDS: Albuterol-Ipratrop 3 mg / 0.5 (3 ml) UD INH SCH ×5 (07:54→19:17)
[2016-08-01 08:54] LABS: LYMPHOCYTE 9 % (20-50); MONOCYTE 8 % (0-10); NEUTROPHIL 83 % (42-75); TOTAL CELLS COUNTED 100
[2016-08-01 08:55] LABS: PLATELET ESTIMATE NORMAL (NORMAL)
[2016-08-01] MEDS: Potassium Chloride 20 mEq ER Tab PO SCH (09:03)
[2016-08-01] MEDS: Azithromycin 500 MG in Sodium Chloride 0.9% 250 ML IVPB SCH (09:04)
--- NOTE | 2016-08-01 09:09 | CP.PCM.PN ---
Subjective - Date & Time of Evaluation Date of Evaluation: 08/01/16 Time of Evaluation: 09:05 - Subjective Subjective: Sitting OOB, eating breakfast Denies much coughing/dyspnoea Telemetry shows A-sensed, V- paced rhythm BP 120/70 mm Hg Ejection syst murmur of IHSS present Pt stable from cardiac point of view. Objective - Vital Signs/Intake and Output Vital Signs (last 24 hours): Temp Pulse Resp BP Pulse Ox 99 F 86 18 138/64 93 L 08/01/16 08:57 08/01/16 09:03 08/01/16 08:57 08/01/16 09:03 08/01/16 08:57 Intake and Output: 08/01/16 08/01/16 06:59 18:59 Intake Total 1550 250 Balance 1550 250 - Medications Medications: Current Medications Acetaminophen (Tylenol 325mg Tab) 650 mg PO Q6 PRN PRN Reason: Headache Albuterol/Ipratropium (Duoneb 3 Mg/0.5 Mg (3 Ml) Ud) 3 ml INH RQID [facility] Last Admin: 08/01/16 07:54 Dose: 3 ml Atorvastatin Calcium (Lipitor) 10 mg PO DAILY [facility] Last Admin: 08/01/16 09:03 Dose: 10 mg Carvedilol (Coreg) 3.125 mg PO BID [facility] Last Admin: 08/01/16 09:03 Dose: 3.125 mg Ciprofloxacin (Ciloxan 0.3% Oph Soln) 1 drop OD Q2 [facility] Stop: 08/02/16 04:00 Last Admin: 08/01/16 09:02 Dose: 1 drop Enoxaparin Sodium (Lovenox) 40 mg SC HS [facility] PRN Reason: Protocol Last Admin: 07/31/16 21:06 Dose: 40 mg Ceftriaxone Sodium 1 gm/ (Sodium Chloride) 100 mls @ 100 mls/hr IVPB DAILY [facility] Last Admin: 07/31/16 09:00 Dose: 100 mls/hr Azithromycin 500 mg/ Sodium (Chloride) 250 mls @ 250 mls/hr IVPB DAILY [facility] Last Admin: 08/01/16 09:04 Dose: 250 mls/hr Potassium Chloride (K-Dur 20 Meq Er Tab) 20 meq PO DAILY [facility] Last Admin: 08/01/16 09:03 Dose: 20 meq Risperidone (Risperdal Tab) 0.25 mg PO [facility] Last Admin: 07/31/16 21:05 Dose: 0.25 mg - Labs Labs: 08/01/16 06:00 08/01/16 06:00 PT 15.1 Seconds (9.8-13.1) H 07/30/16 19:10 INR 1.3 (0.9-1.2) H 07/30/16 19:10 APTT 26.5 Seconds (25.6-37.1) 07/30/16 19:10
[2016-08-01 10:11] LABS: SQUAMOUS EPITHIAL < 1 /hpf (0-5); URINE BILIRUBIN NEGATIVE (NEGATIVE); URINE BLOOD NEGATIVE (NEGATIVE); URINE CLARITY CLEAR (Clear); URINE COLOR YELLOW (YELLOW); URINE GLUCOSE (UA) NEG (Normal); URINE LEUKOCYTE ESTERASE NEG Leu/uL (Negative); URINE NITRATE NEGATIVE (NEGATIVE); URINE PROTEIN 30 mg/dL (NEGATIVE); URINE UROBILINOGEN 0.2-1.0 mg/dL (0.2-1.0)
[2016-08-01] MEDS: guaiFENesin-DM 600-30 mg ER Tab PO SCH ×2 (11:42→18:23)
[2016-08-01] MEDS ORDERED: Sodium Chloride 0.9% 1,000 ML IV SCH (19:00)
--- NOTE | 2016-08-01 19:46 | CP.PCM.PCO ---
<Senait Storm - Last Filed: 08/01/16 22:56> Addendum Addendum: 08/01/16 19:33 CC: Acute change in rhythm, A-fib vs. flutter S: Pt seen at bedside denies SOB, chest pain or palpitations, nausea, or diaphoresis. However, she reports feeling tired. HR- 51 (a-flutter) no pacing, BP obtained by Dr Ontiveros 80s/50s (manual) GEN: NAD, AA&O x3 PULM: good air entry, scattered rhonchi CARD: bradycardia, telemetry a-flutter with rate of 50/51 ABD: soft NTND EXT: no edema A/P: 85F being treating for pneumonia set up for discharge when it was noted she became confused. She was placed back on the telemetry and found to be bradycardic in a-fib/flutter with hypotension, but on evaluation by resident was found to be oriented but drowsy. 12-lead EKG showed bradycardia without pacing and what appears to be atrial flutter. Evaluation of telemetry history shows that after being placed back on telemetry there was no evidence of pacing. Dr Rodriguez notified and recommends transfer to ICU with cautious hydration while he arranges for AICD rep to evaluate. Patient's BP improved to 121/65. - ICU Consult (Dr Paula) - Transfer to ICU - Nursing notifed - Dr Gooden informed - 250ml NS bolus - resume all orders and diet. - 08/01/16 19:47 08/01/16 22:56 <Asim Gooden - Last Filed: 08/02/16 06:44> Attending/Attestation - Attestation I have personally seen and examined this patient.: Yes I have fully participated in the care of the patient.: Yes I have reviewed all pertinent clinical information: Yes
--- NOTE | 2016-08-01 20:01 | CP.CCUPN ---
CCU Subjective - Physician Review Subjective (Free Text): 85F admitted 2 days ago for pneumonia and today developed recurrent A fib with slow VR in the 50s associated with hypotension. Patient responded to 250ml fluid challenge with SBP up to 110. Presently awake and alert, appears anxious but no overt agitation nor exhibits any distress, noted to be sleeping and easily aroused and appropriately responsive. Via Telemetry, noted to be in A Fib with HR 54, Pacer magnet placed over AIC D and HR accelerated up to 100/min and stayed at this rate. Removal of magnet showed slowing of HR back down to 51. She denies any dizziness, chest pain nor SOB at bed rest. Denies any N/V, headaches, palpitations, diaphoresis. Afebrile, HR 51-54 in regularized A Fib versus junctional rhythm, 118/69, RR 16, SPO2 98% on RA. ROS: as above, no other pertinent negs or positives on 10+ system review. 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 All other Nursing and physician records reviewed and no other pertinent information noted relevant to current problems . CCU Objective - Vital Signs / Intake & Output Vital Signs (Last 4 hours): Vital Signs Temp Pulse Resp BP Pulse Ox 08/01/16 19:45 99.1 F 53 L 20 121/56 L 95 08/01/16 18:45 52 L 18 107/45 L 96 08/01/16 18:36 52 L 18 107/45 L 96 08/01/16 18:22 50 L 120/63 Intake and Output (Last 8hrs): Intake & Output 08/01/16 08/01/16 08/01/16 06:59 14:59 22:59 Intake Total 500 250 250 Balance 500 250 250 Weight 148 lb 1.6 oz Intake: Intake, Piggyback 250 250 Oral 500 Other: # Voids Urine, Voided 3 1 - Physical Exam Head: Positive for: Normocephalic Pupils: Positive for: PERRL Extroacular Muscles: Positive for: EOMI Conjunctiva: Positive for: Normal Ears: Positive for: Normal Mouth: Positive for: Moist Mucous Membranes Pharnyx: Positive for: Normal Neck: Positive for: Normal Range of Motion. Negative for: JVD Respiratory/Chest: Positive for: Good Air Exchange. Negative for: Wheezes, Decreased Breath Sounds (@ bases bilaterally), Rhonchi Abdomen: Positive for: Normal Bowel Sounds. Negative for: Tenderness, Distention Upper Extremity: Positive for: Normal Inspection Lower Extremity: Positive for: Edema (+1 pitting edema), NORMAL PULSES. Negative for: CALF TENDERNESS, Cyanosis Neurological: Positive for: GCS=15, CN II-XII Intact, Motor Func Grossly Intact Skin: Positive for: Warm. Negative for: Rashes Psychiatric: Positive for: Alert, Oriented x 3, Normal Mood - Medications Active Medications: Active Medications Generic Name Dose Route Start Last Admin Trade Name Freq PRN Reason Stop Dose Admin Acetaminophen 650 mg 07/31/16 16:24 Tylenol 325mg Tab PO Q6 PRN Headache Albuterol/Ipratropium 3 ml 07/31/16 08:00 08/01/16 19:17 Duoneb 3 Mg/0.5 Mg (3 Ml) Ud INH 3 ml RQID DILLON Administration Atorvastatin Calcium 10 mg 07/31/16 09:00 08/01/16 09:03 Lipitor PO 10 mg DAILY DILLON Administration Azithromycin 250 mg 08/01/16 10:30 08/01/16 11:42 Zithromax PO 08/04/16 09:01 250 mg DAILY [facility]ON Administration Carvedilol 3.125 mg 07/31/16 09:00 08/01/16 18:22 Coreg PO Not Given BID DILLON Ciprofloxacin 1 drop 08/01/16 13:00 08/01/16 18:22 Ciloxan 0.3% Ophth Soln OD 08/02/16 04:00 1 drop Q4 DILLON Administration Enoxaparin Sodium 40 mg 07/30/16 22:00 07/31/16 21:06 Lovenox SC 40 mg HS DILLON Administration Protocol Guaifenesin/Dextromethorphan 1 tab 08/01/16 10:00 08/01/16 18:23 Mucinex-Dm 600-30 Mg PO Not Given BID DILLON Potassium Chloride 20 meq 07/31/16 09:00 08/01/16 09:03 K-Dur 20 Meq Er Tab PO 20 meq DAILY [facility]ON Administration Risperidone 0.25 mg 07/31/16 22:00 07/31/16 21:05 Risperdal Tab PO 0.25 mg HS DILLON Administration - Patient Studies Lab Studies: Microbiology Studies 07/31/16 16:59 Gram Stain - Final Sputum Sputum Culture - Preliminary NORMAL ORAL CHANTE Lab Studies 08/01/16 08/01/16 08/01/16 Range/Units 09:45 06:00 06:00 WBC 16.7 H (4.8-10.8) K/uL RBC 4.29 (3.80-5.20) Mil/uL Hgb 12.9 (12.0-16.0) g/dL Hct 39.7 (34.0-47.0) % MCV 92.5 (81.0-99.0) fl MCH 29.9 (27.0-31.0) pg MCHC 32.4 L (33.0-37.0) g/dL RDW 14.0 (11.5-14.5) % Plt Count 266 (130-400) K/uL MPV 7.7 (7.2-11.7) fl Neut % (Auto) 79.5 H (50.0-75.0) % Lymph % (Auto) 9.9 L (20.0-40.0) % [place] % (Auto) 10.0 (0.0-10.0) % Eos % (Auto) 0.1 (0.0-4.0) % Baso % (Auto) 0.5 (0.0-2.0) % Neut # 13.2 H (1.8-7.0) K/uL Lymph # 1.6 (1.0-4.3) K/uL [place] # 1.7 H (0.0-0.8) K/uL Eos # 0.0 (0.0-0.7) K/uL Baso # 0.1 (0.0-0.2) K/uL Neutrophils % (Manual) 83 H (42-75) % Lymphocytes % (Manual) 9 L (20-50) % Monocytes % (Manual) 8 (0-10) % Platelet Estimate Normal (NORMAL) RBC Morphology Normal (NORMAL) Sodium 140 (132-148) mmol/l Potassium 4.9 (3.6-5.0) MMOL/L Chloride 105 (98-107) mmol/L Carbon Dioxide 24 (22-30) mmol/L Anion Gap 17 (10-20) BUN 13 (7-17) mg/dl Creatinine 0.8 (0.7-1.2) mg/dL Est GFR ( Amer) > 60 Est GFR (Non-Af Amer) > 60 Random Glucose 114 H (65-105) mg/dL Calcium 9.0 (8.4-10.2) mg/dL Procalcitonin (0.19-0.49) NG/ML Urine Color Yellow (YELLOW) Urine Clarity Clear (Clear) Urine pH 6.0 (5.0-8.0) Ur Specific [place] 1.018 (1.003-1.030) Urine Protein 30 (NEGATIVE) mg/dL Urine Glucose (UA) Neg (Normal) mg/dL Urine Ketones Trace (NEGATIVE) mg/dL Urine Blood Negative (NEGATIVE) Urine Nitrate Negative (NEGATIVE) Urine Bilirubin Negative (NEGATIVE) Urine Urobilinogen 0.2-1.0 (0.2-1.0) mg/dL Ur Leukocyte Esterase Neg (Negative) Gaye/uL Urine RBC (Auto) 2 (0-3) /hpf Urine Microscopic WBC < 1 (0-5) /hpf Ur Squamous Epith Cells < 1 (0-5) /hpf 08/01/16 Range/Units 06:00 WBC (4.8-10.8) K/uL RBC (3.80-5.20) Mil/uL Hgb (12.0-16.0) g/dL Hct (34.0-47.0) % MCV (81.0-99.0) fl MCH (27.0-31.0) pg MCHC (33.0-37.0) g/dL RDW (11.5-14.5) % Plt Count (130-400) K/uL MPV (7.2-11.7) fl Neut % (Auto) (50.0-75.0) % Lymph % (Auto) (20.0-40.0) % [place] % (Auto) (0.0-10.0) % Eos % (Auto) (0.0-4.0) % Baso % (Auto) (0.0-2.0) % Neut # (1.8-7.0) K/uL Lymph # (1.0-4.3) K/uL [place] # (0.0-0.8) K/uL Eos # (0.0-0.7) K/uL Baso # (0.0-0.2) K/uL Neutrophils % (Manual) (42-75) % Lymphocytes % (Manual) (20-50) % Monocytes % (Manual) (0-10) % Platelet Estimate (NORMAL) RBC Morphology (NORMAL) Sodium (132-148) mmol/l Potassium (3.6-5.0) MMOL/L Chloride (98-107) mmol/L Carbon Dioxide (22-30) mmol/L Anion Gap (10-20) BUN (7-17) mg/dl Creatinine (0.7-1.2) mg/dL Est GFR ( Amer) Est GFR (Non-Af Amer) Random Glucose (65-105) mg/dL Calcium (8.4-10.2) mg/dL Procalcitonin 0.25 (0.19-0.49) NG/ML Urine Color (YELLOW) Urine Clarity (Clear) Urine pH (5.0-8.0) Ur Specific [place] (1.003-1.030) Urine Protein (NEGATIVE) mg/dL Urine Glucose (UA) (Normal) mg/dL Urine Ketones (NEGATIVE) mg/dL Urine Blood (NEGATIVE) Urine Nitrate (NEGATIVE) Urine Bilirubin (NEGATIVE) Urine Urobilinogen (0.2-1.0) mg/dL Ur Leukocyte Esterase (Negative) Gaye/uL Urine RBC (Auto) (0-3) /hpf Urine Microscopic WBC (0-5) /hpf Ur Squamous Epith Cells (0-5) /hpf Laboratory Results - last 24 hr 08/01/16 08/01/16 08/01/16 06:00 06:00 06:00 WBC 16.7 H RBC 4.29 Hgb 12.9 Hct 39.7 MCV 92.5 MCH 29.9 MCHC 32.4 L RDW 14.0 Plt Count 266 MPV 7.7 Neut % (Auto) 79.5 H Lymph % (Auto) 9.9 L [place] % (Auto) 10.0 Eos % (Auto) 0.1 Baso % (Auto) 0.5 Neut # 13.2 H Lymph # 1.6 [place] # 1.7 H Eos # 0.0 Baso # 0.1 Neutrophils % (Manual) 83 H Lymphocytes % (Manual) 9 L Monocytes % (Manual) 8 Platelet Estimate Normal RBC Morphology Normal Sodium 140 Potassium 4.9 Chloride 105 Carbon Dioxide 24 Anion Gap 17 BUN 13 Creatinine 0.8 Est GFR ( Amer) > 60 Est GFR (Non-Af Amer) > 60 Random Glucose 114 H Calcium 9.0 Procalcitonin 0.25 Urine Color Urine Clarity Urine pH Ur Specific [place] Urine Protein Urine Glucose (UA) Urine Ketones Urine Blood Urine Nitrate Urine Bilirubin Urine Urobilinogen Ur Leukocyte Esterase Urine RBC (Auto) Urine Microscopic WBC Ur Squamous Epith Cells 08/01/16 09:45 WBC RBC Hgb Hct MCV MCH MCHC RDW Plt Count MPV Neut % (Auto) Lymph % (Auto) [place] % (Auto) Eos % (Auto) Baso % (Auto) Neut # Lymph # [place] # Eos # Baso # Neutrophils % (Manual) Lymphocytes % (Manual) Monocytes % (Manual) Platelet Estimate RBC Morphology Sodium Potassium Chloride Carbon Dioxide Anion Gap BUN Creatinine Est GFR ( Amer) Est GFR (Non-Af Amer) Random Glucose Calcium Procalcitonin Urine Color Yellow Urine Clarity Clear Urine pH 6.0 Ur Specific [place] 1.018 Urine Protein 30 Urine Glucose (UA) Neg Urine Ketones Trace Urine Blood Negative Urine Nitrate Negative Urine Bilirubin Negative Urine Urobilinogen 0.2-1.0 Ur Leukocyte Esterase Neg Urine RBC (Auto) 2 Urine Microscopic WBC < 1 Ur Squamous Epith Cells < 1 Radiology Interpretations (Free Text): Crdiomegaly, minor bilateral hilar, and perhaps RML intertsitial changes (my interp). EKG/Cardiology Studies: Cardiology / EKG Studies 08/01/16 EKG [ELECTROCARDIOGRAM] Stat Comment: Mode Of Transportation: Reason For Exam: afib EKG/Cardiology Interpretations (Free Text): regularized rhythm in 50's, no P waves, possible junctional rhythm, inverted T' s inferiorly and V3-V6 ( my interp ) Review of Systems - Review of Systems All systems: reviewed and no additional remarkable complaints except - Cardiovascular Cardiovascular: Edema, Leg Edema, Slow Heart Rate. absent: Chest Pain, Chest Pain at Rest, Chest Pain with Activity, Diaphoresis, Dyspnea, Lightheadedness - Respiratory Respiratory: absent: Dyspnea, Wheezing - Gastrointestinal Gastrointestinal: UNREMARKABLE - Neurological Neurological: UNREMARKABLE Critical Care Progress Note - Extremities/Vascular Does the Patient have a Central Venous Catheter?: No Does the Patient need a Central Venous Catheter?: No Does the Patient have a Leary Catheter?: No Does the Patient need a Leary Catheter?: No - Prophylaxis GI Prophylaxis GI: Not Indicated - Prophylaxis DVT Prophylaxis DVT: Lovenox - Nutrition Nutrition: Nutrition Category Date Time Status Heart Healthy Diet [DIET] Diets 07/30/16 Breakfast Active Assessment/Plan - Assessment and Plan (Free Text) Assessment: 1. Bradyarrythmia 2' Beta Blockers vs h/o Ablation with junctional escape rhythm, r/o PPM miscapture. 2. Regularized Atrial Fib ( but has h/o Catheter Ablation) versus Junctional Escape rhythm 2. CHF 2' LV dysfuction 3. Hypertrophic Cardiomyopathy 2' IHSS 4. Acute Resp Insuff 2' tracheobronchitis (viral etiology) Plan: - Transfer to ICU for further mgmt / observation- Telemetry monitoring and possible vasoactive medication ( e.g. Dopamine). - Hold beta blockers. - Hold Lasix, no clinical evidence of CHF decompensation now, but cautious IVF challenges for hypotension. - Serial Trops, EKGs. - PPM interrogation for any arrhythmia mismanagement, pacer miscapture or undersensing; need for re-programming; or other PPM physical lead problem. - See no need for acute AC. - No indication to place temp transvenous PM now unless she remains in persistent shock state or other symptomatic bradycardia with malfunctioning PPM- in place.
[2016-08-01] MEDS: Enoxaparin 40 mg Syringe SC SCH (21:26)
[2016-08-02] MEDS: Ciprofloxacin 0.3% OPTH SOLN OD SCH (01:24)
[2016-08-02] MEDS ORDERED: Albuterol-Ipratrop 3 mg / 0.5 (3 ml) UD ONE (01:28)
[2016-08-02] MEDS: Albuterol-Ipratrop 3 mg / 0.5 (3 ml) UD INH SCH ×4 (01:37→19:14)
[2016-08-02 05:28] LABS: BASO # 0.1 K/uL (0.0-0.2); BASO % 0.5 % (0.0-2.0); EOS % 0.1 % (0.0-4.0); HEMOGLOBIN 11.9 g/dL (12.0-16.0); LYMPH # 1.3 K/uL (1.0-4.3); LYMPH % 7.3 % (20.0-40.0); MEAN CELL VOLUME 92.9 fl (81.0-99.0); MEAN CORPUSCULAR HEMOGLOBIN 29.9 pg (27.0-31.0); MEAN CORPUSCULAR HGB CONC 32.2 g/dL (33.0-37.0); MEAN PLATELET VOLUME 8.2 fl (7.2-11.7); MONO # 1.6 K/uL (0.0-0.8); MONO % 8.9 % (0.0-10.0); NEUT # 14.9 K/uL (1.8-7.0); NEUT % 83.2 % (50.0-75.0); RBC 3.98 Mil/uL (3.80-5.20); RED CELL DISTRIBUTION WIDTH 14.1 % (11.5-14.5); WHITE BLOOD COUNT 17.9 K/uL (4.8-10.8)
[2016-08-02 05:36] LABS: BLOOD UREA NITROGEN 19 mg/dl (7-17); CALCIUM 8.7 mg/dL (8.4-10.2); GFR AFRICAN-AMERICAN > 60; GFR NON-AFRICAN AMERICAN 53
--- NOTE | 2016-08-02 06:40 | CP.PCM.PN ---
<Sammy Ontiveros - Last Filed: 08/02/16 21:08> Subjective - Date & Time of Evaluation Date of Evaluation: 08/02/16 Time of Evaluation: 07:00 - Subjective Subjective: No acute events overnight. Patient was made NPO. For possible cardioversion today. Patient appears more acutely ill than on admission, she is on O2 via NC and reports feeling short of breath and not feeling well. No dizziness while lying supine. No appetite. No chest pain or heaviness, no nausea or vomiting, no abdominal pain. As per nurse, patient oliguric. Pacemaker to be interrogated today. Objective - Vital Signs/Intake and Output Vital Signs (last 24 hours): Temp Pulse Resp BP Pulse Ox 98.2 F 50 L 38 H 118/44 L 92 L 08/02/16 04:00 08/02/16 06:00 08/02/16 06:00 08/02/16 06:00 08/02/16 06:00 Intake and Output: 08/01/16 08/02/16 18:59 06:59 Intake Total 500 0 Balance 500 0 - Medications Medications: Current Medications Acetaminophen (Tylenol 325mg Tab) 650 mg PO Q6 PRN PRN Reason: Headache Albuterol/Ipratropium (Duoneb 3 Mg/0.5 Mg (3 Ml) Ud) 3 ml INH Q6H [facility] Last Admin: 08/02/16 01:37 Dose: 3 ml Atorvastatin Calcium (Lipitor) 10 mg PO DAILY [facility] Last Admin: 08/01/16 09:03 Dose: 10 mg Azithromycin (Zithromax) 250 mg PO DAILY [facility] Stop: 08/04/16 09:01 Last Admin: 08/01/16 11:42 Dose: 250 mg Carvedilol (Coreg) 3.125 mg PO BID [facility] Last Admin: 08/01/16 18:22 Dose: Not Given Enoxaparin Sodium (Lovenox) 40 mg SC HS [facility] PRN Reason: Protocol Last Admin: 08/01/16 21:26 Dose: 40 mg Guaifenesin/Dextromethorphan (Mucinex-Dm 600-30 Mg) 1 tab PO BID [facility] Last Admin: 08/01/16 18:23 Dose: Not Given Potassium Chloride (K-Dur 20 Meq Er Tab) 20 meq PO DAILY [facility] Last Admin: 06/15/17 09:03 Dose: 20 meq Risperidone (Risperdal Tab) 0.25 mg PO HS [facility] Last Admin: 08/02/16 01:35 Dose: 0.25 mg - Labs Labs: 08/02/16 04:30 08/02/16 04:30 PT 15.1 Seconds (9.8-13.1) H 07/30/16 19:10 INR 1.3 (0.9-1.2) H 07/30/16 19:10 APTT 26.5 Seconds (25.6-37.1) 07/30/16 19:10 - Constitutional Appears: Other (appears acutely ill, pale, short of breath and fatigued) - Head Exam Head Exam: NORMAL INSPECTION - Eye Exam Eye Exam: Normal appearance - ENT Exam ENT Exam: Mucous Membranes Dry - Respiratory Exam Respiratory Exam: Rales, Rhonchi (right mid lung anterior/posteriorly. ), Respiratory Distress (tachypnea, labored breathing) - Cardiovascular Exam Cardiovascular Exam: Bradycardia (not paced, HR in 50s), +S1, +S2 (distant heart sounds) - GI/Abdominal Exam GI & Abdominal Exam: Soft. absent: Tenderness - Rectal Exam Rectal Exam: Deferred - Extremities Exam Extremities Exam: absent: Pedal Edema, Tenderness - Neurological Exam Neurological Exam: Awake (more alert than yesterday), CN II-XII Intact - Psychiatric Exam Psychiatric exam: Flat Affect - Skin Skin Exam: Dry, Intact, Pallor. absent: Petechiae Assessment and Plan - Assessment and Plan (Free Text) Assessment: 85 year old female admitted for CAP, with acute decompenstation likely secondary to CHF and subsequent transfer to ICU. Patient s/p GLORY today without cardioversion due to thrombus in left atrial appendage. Appears more alert today , still has some fatigue, +cough, no respiratory distress. As per Dr. Turner note: Interrogation of [place] Dual chamber AICD done today. Patient was in atrial fibrillation for approximately 19 hours. (1) Pneumonia, community acquired Assessment and Plan: ?CAP with acute respiratory insufficiency, right upper lobe and left mid lung hazy opacity -worsening leukocytosis, consider starting empiric antibiotics for hcap/ worsening CAP -continue azithromycin for now - f/u BCx no growth x48 hrs, sputum culture negative - Incentive Spirometry - duonebs QID -O2 as needed Status: Acute . History of atrial fibrillation and IHSS Assessment and Plan: Patients last episode of afib in september 2015. At the time of interrogation, patient was in atrial fibrillation for approximately 19 hours. -now with thrombus in left atrial appendage, needs therapeutic anticoagulation -as per Dr. Turner recommendation s/p GLORY: NOAC, can consider elective cardioversion after 1 month of anticoagulation. -started on lovenox 70mg q 12 Status: Chronic .CHF (congestive heart failure) Assessment and Plan: Echo (11/23/2014) showing abnormal relaxation pattern as well as decrease in EF (45-50%). - Coreg 3.125mg BID/ Lasix 20mg as per cardiology. monitor BP - Potassium 20meq daily - simvastatin 20meq qhs - Dr. Rodriguez is following Status: Chronic .Bacterial conjunctivitis of right eye Assessment and Plan: -improved DAY 4: Ciprofloxacin 0.3% 1-2gtts, Q2H x2 days then Q4H for remaining 5 days - q4h today Status: Acute .DVT prophylaxis Assessment and Plan: -d/c lovenox 40mg SC -patient requires therapeutic anticoagulation for thrombus in left atrium -started on lovenox 70mg q12, consider switching to NOAC. Status: Acute (6) Hypertension Assessment and Plan: Chronic, stable. - coreg/lasix , as per cardio, monitor BP Status: Chronic (7) Biplolar disorder -risperdal 0.25 qhs <Asim Gooden - Last Filed: 08/05/16 06:39> Objective - Vital Signs/Intake and Output Vital Signs (last 24 hours): Temp Pulse Resp BP Pulse Ox 98.1 F 60 25 H 159/88 H 99 08/04/16 23:04 08/05/16 06:31 08/05/16 06:31 08/05/16 06:31 08/05/16 06:31 Intake and Output: 08/04/16 08/05/16 18:59 06:59 Intake Total 1170 550 Output Total 800 300 Balance 370 250 - Medications Medications: Current Medications Acetaminophen (Tylenol 325mg Tab) 650 mg PO Q6 PRN PRN Reason: Headache Albuterol/Ipratropium (Duoneb 3 Mg/0.5 Mg (3 Ml) Ud) 3 ml INH RQ6 [facility] Last Admin: 08/05/16 00:59 Dose: 3 ml Amiodarone HCl (Cordarone) 400 mg PO DAILY [facility] Last Admin: 08/04/16 12:38 Dose: 400 mg Atorvastatin Calcium (Lipitor) 10 mg PO DAILY [facility] Last Admin: 08/04/16 08:39 Dose: 10 mg Carvedilol (Coreg) 3.125 mg PO Q12 [facility] Last Admin: 08/04/16 20:16 Dose: 3.125 mg Enoxaparin Sodium (Lovenox) 70 mg SC Q12 [facility] PRN Reason: Protocol Last Admin: 08/04/16 20:15 Dose: 70 mg Guaifenesin/Dextromethorphan (Mucinex-Dm 600-30 Mg) 1 tab PO BID [facility] Last Admin: 08/04/16 16:45 Dose: 1 tab Amiodarone HCl 450 mg/ (Dextrose) 259 mls @ 34.53 mls/hr IVPB .[id number] [facility]ILLON; 1 MG /MIN PRN Reason: Protocol Vancomycin HCl 1 gm/ Sodium (Chloride) 250 mls @ 166.667 mls/hr IVPB Q12 [facility] Last Admin: 08/04/16 20:13 Dose: 166.667 mls/hr Piperacillin Sod/Tazobactam (Sod 3.375 gm/ Sodium Chloride) 100 mls @ 100 mls/ hr IVPB Q6H [facility] Last Admin: 08/05/16 03:45 Dose: 100 mls/hr Potassium Chloride (K-Dur 20 Meq Er Tab) 20 meq PO DAILY [facility] Last Admin: 08/04/16 08:36 Dose: Not Given Risperidone (Risperdal Tab) 0.25 mg PO HS [facility] Last Admin: 08/04/16 21:00 Dose: 0.25 mg - Labs Labs: 08/05/16 04:15 08/05/16 04:15 PT 15.1 Seconds (9.8-13.1) H 07/30/16 19:10 INR 1.3 (0.9-1.2) H 07/30/16 19:10 APTT 26.5 Seconds (25.6-37.1) 07/30/16 19:10 Attending/Attestation - Attestation I have personally seen and examined this patient.: Yes I have fully participated in the care of the patient.: Yes I have reviewed all pertinent clinical information, including history, physical exam and plan: Yes
--- NOTE | 2016-08-02 06:51 | CP.CCUPN ---
CCU Subjective - Physician Review Subjective (Free Text): Uneventful overnight after transfer to ICu for HR monitoring, remains bradycardic but nit severely, in 50's with SBP maintained at 110 average systolic. Denies any dizziness ot chest discomfort. Tachypneic at times, SPo2 93 % on nasal cannula. CCU Objective - Vital Signs / Intake & Output Vital Signs (Last 4 hours): Vital Signs Temp Pulse Resp BP Pulse Ox 08/02/16 06:00 50 L 38 H 118/44 L 92 L 08/02/16 05:00 51 L 92 H 100/48 L 35 L 08/02/16 04:00 98.2 F 51 L 38 H 102/44 L 93 L 08/02/16 03:00 54 L 40 H 110/52 L 92 L Intake and Output (Last 8hrs): Intake & Output 08/01/16 08/01/16 08/02/16 14:59 22:59 06:59 Intake Total 250 250 Balance 250 250 Intake: IV 0 Intake, Piggyback 250 250 Tube Feeding 0 Other: # Voids Urine, Voided 1 - Physical Exam Head: Positive for: Normocephalic Pupils: Positive for: PERRL Extroacular Muscles: Positive for: EOMI Conjunctiva: Positive for: Normal Ears: Positive for: Normal Mouth: Positive for: Moist Mucous Membranes Pharnyx: Positive for: Normal Neck: Positive for: Normal Range of Motion. Negative for: JVD Respiratory/Chest: Positive for: Good Air Exchange. Negative for: Wheezes, Decreased Breath Sounds (@ bases bilaterally), Rhonchi Abdomen: Positive for: Normal Bowel Sounds. Negative for: Tenderness, Distention Upper Extremity: Positive for: Normal Inspection Lower Extremity: Positive for: Edema (+1 pitting edema), NORMAL PULSES. Negative for: CALF TENDERNESS, Cyanosis Neurological: Positive for: GCS=15, CN II-XII Intact, Motor Func Grossly Intact Skin: Positive for: Warm. Negative for: Rashes Psychiatric: Positive for: Alert, Oriented x 3, Normal Mood - Medications Active Medications: Active Medications Generic Name Dose Route Start Last Admin Trade Name Freq PRN Reason Stop Dose Admin Acetaminophen 650 mg 07/31/16 16:24 Tylenol 325mg Tab PO Q6 PRN Headache Albuterol/Ipratropium 3 ml 08/02/16 01:30 08/02/16 01:37 Duoneb 3 Mg/0.5 Mg (3 Ml) Ud INH 3 ml Q6H DILLON Administration Atorvastatin Calcium 10 mg 07/31/16 09:00 08/01/16 09:03 Lipitor PO 10 mg DAILY DILLON Administration Azithromycin 250 mg 08/01/16 10:30 08/01/16 11:42 Zithromax PO 08/04/16 09:01 250 mg DAILY DILLON Administration Carvedilol 3.125 mg 07/31/16 09:00 08/01/16 18:22 Coreg PO Not Given BID DILLON Enoxaparin Sodium 40 mg 07/30/16 22:00 08/01/16 21:26 Lovenox SC 40 mg HS DILLON Administration Protocol Guaifenesin/Dextromethorphan 1 tab 08/01/16 10:00 08/01/16 18:23 Mucinex-Dm 600-30 Mg PO Not Given BID DILLON Potassium Chloride 20 meq 07/31/16 09:00 08/01/16 09:03 K-Dur 20 Meq Er Tab PO 20 meq DAILY DILLON Administration Risperidone 0.25 mg 07/31/16 22:00 08/02/16 01:35 Risperdal Tab PO 0.25 mg HS DILLON Administration - Patient Studies Lab Studies: Microbiology Studies 07/31/16 16:59 Gram Stain - Final Sputum Sputum Culture - Preliminary NORMAL ORAL CHANTE Lab Studies 08/02/16 08/02/16 08/01/16 Range/Units 04:30 04:30 09:45 WBC 17.9 H (4.8-10.8) K/uL RBC 3.98 (3.80-5.20) Mil/uL Hgb 11.9 L (12.0-16.0) g/dL Hct 36.9 (34.0-47.0) % MCV 92.9 (81.0-99.0) fl MCH 29.9 (27.0-31.0) pg MCHC 32.2 L (33.0-37.0) g/dL RDW 14.1 (11.5-14.5) % Plt Count 253 (130-400) K/uL MPV 8.2 (7.2-11.7) fl Neut % (Auto) 83.2 H (50.0-75.0) % Lymph % (Auto) 7.3 L (20.0-40.0) % [place] % (Auto) 8.9 (0.0-10.0) % Eos % (Auto) 0.1 (0.0-4.0) % Baso % (Auto) 0.5 (0.0-2.0) % Neut # 14.9 H (1.8-7.0) K/uL Lymph # 1.3 (1.0-4.3) K/uL [place] # 1.6 H (0.0-0.8) K/uL Eos # 0.0 (0.0-0.7) K/uL Baso # 0.1 (0.0-0.2) K/uL Neutrophils % (Manual) (42-75) % Lymphocytes % (Manual) (20-50) % Monocytes % (Manual) (0-10) % Platelet Estimate (NORMAL) RBC Morphology (NORMAL) Sodium 138 (132-148) mmol/l Potassium 4.9 (3.6-5.0) MMOL/L Chloride 104 (98-107) mmol/L Carbon Dioxide 22 (22-30) mmol/L Anion Gap 16 (10-20) BUN 19 H (7-17) mg/dl Creatinine 1.0 (0.7-1.2) mg/dL Est GFR ( Amer) > 60 Est GFR (Non-Af Amer) 53 Random Glucose 130 H (65-105) mg/dL Calcium 8.7 (8.4-10.2) mg/dL Procalcitonin (0.19-0.49) NG/ML Urine Color Yellow (YELLOW) Urine Clarity Clear (Clear) Urine pH 6.0 (5.0-8.0) Ur Specific [place] 1.018 (1.003-1.030) Urine Protein 30 (NEGATIVE) mg/dL Urine Glucose (UA) Neg (Normal) mg/dL Urine Ketones Trace (NEGATIVE) mg/dL Urine Blood Negative (NEGATIVE) Urine Nitrate Negative (NEGATIVE) Urine Bilirubin Negative (NEGATIVE) Urine Urobilinogen 0.2-1.0 (0.2-1.0) mg/dL Ur Leukocyte Esterase Neg (Negative) Gaye/uL Urine RBC (Auto) 2 (0-3) /hpf Urine Microscopic WBC < 1 (0-5) /hpf Ur Squamous Epith Cells < 1 (0-5) /hpf 06/15/17 06/15/17 06/15/17 Range/Units 06:00 06:00 06:00 WBC 16.7 H (4.8-10.8) K/uL RBC 4.29 (3.80-5.20) Mil/uL Hgb 12.9 (12.0-16.0) g/dL Hct 39.7 (34.0-47.0) % MCV 92.5 (81.0-99.0) fl MCH 29.9 (27.0-31.0) pg MCHC 32.4 L (33.0-37.0) g/dL RDW 14.0 (11.5-14.5) % Plt Count 266 (130-400) K/uL MPV 7.7 (7.2-11.7) fl Neut % (Auto) 79.5 H (50.0-75.0) % Lymph % (Auto) 9.9 L (20.0-40.0) % [place] % (Auto) 10.0 (0.0-10.0) % Eos % (Auto) 0.1 (0.0-4.0) % Baso % (Auto) 0.5 (0.0-2.0) % Neut # 13.2 H (1.8-7.0) K/uL Lymph # 1.6 (1.0-4.3) K/uL [place] # 1.7 H (0.0-0.8) K/uL Eos # 0.0 (0.0-0.7) K/uL Baso # 0.1 (0.0-0.2) K/uL Neutrophils % (Manual) 83 H (42-75) % Lymphocytes % (Manual) 9 L (20-50) % Monocytes % (Manual) 8 (0-10) % Platelet Estimate Normal (NORMAL) RBC Morphology Normal (NORMAL) Sodium 140 (132-148) mmol/l Potassium 4.9 (3.6-5.0) MMOL/L Chloride 105 (98-107) mmol/L Carbon Dioxide 24 (22-30) mmol/L Anion Gap 17 (10-20) BUN 13 (7-17) mg/dl Creatinine 0.8 (0.7-1.2) mg/dL Est GFR ( Amer) > 60 Est GFR (Non-Af Amer) > 60 Random Glucose 114 H (65-105) mg/dL Calcium 9.0 (8.4-10.2) mg/dL Procalcitonin 0.25 (0.19-0.49) NG/ML Urine Color (YELLOW) Urine Clarity (Clear) Urine pH (5.0-8.0) Ur Specific [place] (1.003-1.030) Urine Protein (NEGATIVE) mg/dL Urine Glucose (UA) (Normal) mg/dL Urine Ketones (NEGATIVE) mg/dL Urine Blood (NEGATIVE) Urine Nitrate (NEGATIVE) Urine Bilirubin (NEGATIVE) Urine Urobilinogen (0.2-1.0) mg/dL Ur Leukocyte Esterase (Negative) Gaye/uL Urine RBC (Auto) (0-3) /hpf Urine Microscopic WBC (0-5) /hpf Ur Squamous Epith Cells (0-5) /hpf Laboratory Results - last 24 hr 08/01/16 08/01/16 08/01/16 06:00 06:00 06:00 WBC 16.7 H RBC 4.29 Hgb 12.9 Hct 39.7 MCV 92.5 MCH 29.9 MCHC 32.4 L RDW 14.0 Plt Count 266 MPV 7.7 Neut % (Auto) 79.5 H Lymph % (Auto) 9.9 L [place] % (Auto) 10.0 Eos % (Auto) 0.1 Baso % (Auto) 0.5 Neut # 13.2 H Lymph # 1.6 [place] # 1.7 H Eos # 0.0 Baso # 0.1 Neutrophils % (Manual) 83 H Lymphocytes % (Manual) 9 L Monocytes % (Manual) 8 Platelet Estimate Normal RBC Morphology Normal Sodium 140 Potassium 4.9 Chloride 105 Carbon Dioxide 24 Anion Gap 17 BUN 13 Creatinine 0.8 Est GFR ( Amer) > 60 Est GFR (Non-Af Amer) > 60 Random Glucose 114 H Calcium 9.0 Procalcitonin 0.25 Urine Color Urine Clarity Urine pH Ur Specific [place] Urine Protein Urine Glucose (UA) Urine Ketones Urine Blood Urine Nitrate Urine Bilirubin Urine Urobilinogen Ur Leukocyte Esterase Urine RBC (Auto) Urine Microscopic WBC Ur Squamous Epith Cells 08/01/16 08/02/16 08/02/16 09:45 04:30 04:30 WBC 17.9 H RBC 3.98 Hgb 11.9 L Hct 36.9 MCV 92.9 MCH 29.9 MCHC 32.2 L RDW 14.1 Plt Count 253 MPV 8.2 Neut % (Auto) 83.2 H Lymph % (Auto) 7.3 L [place] % (Auto) 8.9 Eos % (Auto) 0.1 Baso % (Auto) 0.5 Neut # 14.9 H Lymph # 1.3 [place] # 1.6 H Eos # 0.0 Baso # 0.1 Neutrophils % (Manual) Lymphocytes % (Manual) Monocytes % (Manual) Platelet Estimate RBC Morphology Sodium 138 Potassium 4.9 Chloride 104 Carbon Dioxide 22 Anion Gap 16 BUN 19 H Creatinine 1.0 Est GFR ( Amer) > 60 Est GFR (Non-Af Amer) 53 Random Glucose 130 H Calcium 8.7 Procalcitonin Urine Color Yellow Urine Clarity Clear Urine pH 6.0 Ur Specific [place] 1.018 Urine Protein 30 Urine Glucose (UA) Neg Urine Ketones Trace Urine Blood Negative Urine Nitrate Negative Urine Bilirubin Negative Urine Urobilinogen 0.2-1.0 Ur Leukocyte Esterase Neg Urine RBC (Auto) 2 Urine Microscopic WBC < 1 Ur Squamous Epith Cells < 1 Review of Systems - Review of Systems All systems: reviewed and no additional remarkable complaints except - Cardiovascular Cardiovascular: Slow Heart Rate. absent: Chest Pain at Rest, Orthopnea, Palpitations Critical Care Progress Note - Extremities/Vascular Does the Patient have a Central Venous Catheter?: No Does the Patient need a Central Venous Catheter?: No Does the Patient have a Leary Catheter?: No Does the Patient need a Leary Catheter?: No - Prophylaxis GI Prophylaxis GI: Not Indicated - Prophylaxis DVT Prophylaxis DVT: Lovenox - Nutrition Nutrition: Nutrition Category Date Time Status Heart Healthy Diet [DIET] Diets 07/30/16 Breakfast Active Assessment/Plan - Assessment and Plan (Free Text) Assessment: 1. Bradyarrythmia 2' Beta Blockers vs h/o Ablation with junctional escape rhythm, r/o PPM miscapture. 2. Regularized Atrial Fib ( but has h/o Catheter Ablation) versus Junctional Escape rhythm 2. CHF 2' LV dysfuction 3. Hypertrophic Cardiomyopathy 2' IHSS 4. Acute Resp Insuff 2' tracheobronchitis (viral etiology) Plan: - Transfered to ICU for further mgmt and observation- Telemetry monitoring, has averted need for possible vasoactive medication ( e.g. Dopamine). - Hold beta blockers. - Hold Lasix, no clinical evidence of CHF decompensation now, but cautious IVF challenges for hypotension. - Serial Trops, EKGs. - PPM interrogation for any arrhythmia mismanagement, pacer miscapture or undersensing; need for re-programming; or other PPM physical lead problem. - See no need for acute AC. - No indication to place temp transvenous PM now unless she remains in persistent shock state or other symptomatic bradycardia with malfunctioning PPM- in place. - Check reepat CXR.
[2016-08-02] MEDS: Potassium Chloride 20 mEq ER Tab PO SCH (08:16)
[2016-08-02] MEDS ORDERED: Amiodarone 900 MG in Dextrose 5% In Water 500 ML IVPB SCH (08:45)
--- NOTE | 2016-08-02 08:45 | CP.PCM.PN ---
Subjective - Date & Time of Evaluation Date of Evaluation: 08/02/16 Time of Evaluation: 08:20 - Subjective Subjective: Pt developed A Fib yesterday around 3PM and decompensated due to IHSS With HR 52-53 BPM (and no pacer activity) Syst BP was in 80's which has improved with IV fluids Now in A Fib with VVI paced rhythm at 50 BPM BP 104/70 mm HG Good peripheral perfusion Mild dyspnoea and rales at bases + (A dose of lasix 40 mg has been given) Labs were noted Pt has been fully anticoagulated with Lovenox The device will be interrogated (arranged) EP to see pt for poss D/ C cardioversion (Dr. Turner on consult) Pt will start on IV Amiodarone GLORY has been arranged if D/C cardioversion is necessary Pt aware of these plans and consents Objective - Vital Signs/Intake and Output Vital Signs (last 24 hours): Temp Pulse Resp BP Pulse Ox 98.5 F 50 L 29 H 118/57 L 96 08/02/16 07:32 08/02/16 07:32 08/02/16 07:32 08/02/16 08:15 08/02/16 07:32 Intake and Output: 08/02/16 08/02/16 06:59 18:59 Intake Total 0 Balance 0 - Medications Medications: Current Medications Acetaminophen (Tylenol 325mg Tab) 650 mg PO Q6 PRN PRN Reason: Headache Albuterol/Ipratropium (Duoneb 3 Mg/0.5 Mg (3 Ml) Ud) 3 ml INH Q6H [facility] Last Admin: 08/02/16 07:18 Dose: 3 ml Atorvastatin Calcium (Lipitor) 10 mg PO DAILY [facility] Last Admin: 08/01/16 09:03 Dose: 10 mg Azithromycin (Zithromax) 250 mg PO DAILY [facility] Stop: 08/04/16 09:01 Last Admin: 08/01/16 11:42 Dose: 250 mg Carvedilol (Coreg) 3.125 mg PO BID [facility] Last Admin: 08/01/16 18:22 Dose: Not Given Enoxaparin Sodium (Lovenox) 70 mg SC Q12 [facility]ON PRN Reason: Protocol Guaifenesin/Dextromethorphan (Mucinex-Dm 600-30 Mg) 1 tab PO BID [facility] Last Admin: 08/01/16 18:23 Dose: Not Given Potassium Chloride (K-Dur 20 Meq Er Tab) 20 meq PO DAILY [facility] Last Admin: 08/02/16 08:16 Dose: Not Given Risperidone (Risperdal Tab) 0.25 mg PO HS [facility]ON Last Admin: 08/02/16 01:35 Dose: 0.25 mg - Labs Labs: 08/02/16 04:30 08/02/16 04:30 PT 15.1 Seconds (9.8-13.1) H 07/30/16 19:10 INR 1.3 (0.9-1.2) H 07/30/16 19:10 APTT 26.5 Seconds (25.6-37.1) 07/30/16 19:10
[2016-08-02] MEDS: guaiFENesin-DM 600-30 mg ER Tab PO SCH ×2 (09:00→16:42)
[2016-08-02] MEDS ORDERED: Enoxaparin 60 mg Syringe SC SCH ×2 (09:00)
[2016-08-02] MEDS ORDERED: Enoxaparin 80 mg Syringe SC SCH ×2 (09:00→09:15)
--- NOTE | 2016-08-02 12:04 | CARD ---
APPROVED REPORT EKG Measurement Heart [id number] <Conclusion> Ventricular-paced rhythm Abnormal ECG
[2016-08-02] MEDS ORDERED: Etomidate 20 mg/10ml Inj IV ONE (15:19)
[2016-08-02] MEDS ORDERED: Midazolam 2 MG/2 ML VIAL ONE (15:20)
--- NOTE | 2016-08-02 15:23 | RAD ---
HISTORY: f/u [facility]NA COMPARISON: Comparison is made to 07/31/2026 FINDINGS: LUNGS: Interval appearance of hazy opacities at the right upper lobe and left mid lung since the previous exam may represent pulmonary congestion. The possibility of pneumonia is not totally excluded. Otherwise no interval change in the lungs. PLEURA: No significant pleural effusion identified, no pneumothorax apparent. CARDIOVASCULAR: The cardiac silhouette is mildly enlarged. OSSEOUS STRUCTURES: No significant abnormalities. VISUALIZED UPPER ABDOMEN: Normal. OTHER FINDINGS: Left-sided pacemaker is again seen in place. IMPRESSION: Hazy opacities at the right upper lobe and left mid lung may represent atelectasis versus pulmonary congestion or pneumonia. Otherwise no interval change.
--- NOTE | 2016-08-02 19:03 | CON ---
DATE: 08/02/2016 REASON FOR EVALUATION: 1. Evaluation and management of atrial fibrillation. 2. Hypertrophic obstructive cardiomyopathy. 3. Status post Berto dual chamber AICD. 4. Pneumonia. REFERRING PHYSICIAN: Dr. Rodriguez. Thank you very much for this consultation. HISTORY OF PRESENT ILLNESS: The patient is an 85-year-old female with a past medical history signifi cant for hypertension, hypertrophic obstructive cardiomyopathy, atrial fibrillation, status post atri al fibrillation ablation at [facility] some 3 years ago, status post Berto dual chamber AICD 2 years ago, who presents to [facility] [place] with cough, fever, chills and shortness of b reath. The patient was found to be suffering from pneumonia as well as decompensated heart failure t o some degree. The patient's status is in the process of being optimized. The patient was found to be in recurrence of atrial fibrillation with mode switch rate at 50. The patient is found to be paced in her 50s. I was contacted this morning by Dr. Rodriguez for further evaluation and management. The sadia escobar did undergo interrogation of her device. The patient has a Berto device, model Paradym RF wm ce, serial number [id number]. Again, patient has a dual chamber device that was implanted on [address] Collins Rodrigez. The patient has a dual chamber device with normal function. The kiana meza's last shock through the defibrillator was at the time of implantation. Device has sufficient cur rent. The patient was initially set at DDI at 50 beats per minute. The patient has a VT zone that st arts at 107 beats per minute, a VF zone at 190 beats per minute. At the time of interrogation, kiana meza had been in atrial fibrillation for approximately 19 hours. The patient did have one other episode of atrial fibrillation, which took place in September 2015. No other episodes of atrial fibrillation a re noted. LABORATORY DATA: As follows: The patient has a white count initially that was 11.7. It has gone up to 17.9. H and H of 36.9 and 92.9, platelets of 253. Potassium 4.1, BUN and creatinine of 10 and 0 .7. Serial troponin 0.034, followed by 0.0450. Prolactin 0.06. Mycoplasma titer 1.29. The patient had a chest x-ray today, which shows hazy opacities in the right upper lobe and left midd le lung, which may represent atelectasis. Electrocardiogram which was done at midnight shows underlying atrial fibrillation with ventricularly paced rhythm at 50 beats per minute, which is a mode switch rate. The patient's QRS morphology when p aced appears to be a superior directed left bundle branch type pattern indicative of RV basal pacing. PHYSICAL EXAMINATION: VITAL SIGNS: Temperature is 98.1, blood pressure is 111/61, mean blood pressure of 77, respiratory r ate of 30. GENERAL: She is a well-developed elderly female in no acute distress. HEENT: Head: Normocephalic, atraumatic. There is a mild alopecia. There is no brittney facial asymme try. There is no evidence of dysmetria. NECK: Supple, no jugular venous distention, no carotid bruits. CHEST: Coarse breath sounds are found in bilateral bases. ABDOMEN: Soft, obese, nontender, nondistended. Positive bowel sounds. EXTREMITIES: No cyanosis, clubbing or edema. DISCUSSION: The defibrillator is found in the left pectoral area. Pocket is without any abnormality . Wound is intact. Incisional scar is noted. The patient's case was discussed with Dr. Rodriguez in detail. The patient had been on amiodarone prior to undergoing atrial fibrillation. The discussion was in regards to further management. At this poi nt, with recurrence of atrial fibrillation, we had recommended undergoing GLORY and, if negative, would cardiovert to try to achieve and maintain sinus rhythm. The patient did receive amiodarone and did undergo a GLORY today, which did show evidence of clearly defined thrombus within the left atrial appen dage. The decision was made not to cardiovert on the basis of a finding of thrombus. ASSESSMENT AND PLAN: 1. Atrial fibrillation status post atrial fibrillation ablation. Relatively speaking, the ablation was successful. The patient has been relatively free of atrial fibrillation for approximately 3 year s at this point. Would recommend anticoagulation. Currently is undergoing anticoagulation with Love nox. Would transfer to a novel oral anticoagulation candidate. the preprocedure finding of th rombus, cardioversion was not performed. The patient, if she is consistently anticoagulated for a pe riod of 1 month, may return for elective cardioversion and may continue amiodarone. 2. Hypertrophic obstructive cardiomyopathy. The patient would likely do better in sinus rhythm and, therefore, would pursue sinus rhythm. Would continue current medications at this point. The patien t has severe left ventricular hypertrophy due to her advanced age and poor functional status. It is u nclear whether the patient would benefit from operative intervention. 3. Status post Berto automatic implantable cardioverter-defibrillator with normal device function. 4. Pneumonia, for which she should and is receiving antibiotic therapy. Thank you for allowing me to participate in the care of your patient. Please do not hesitate to call if you have any questions in regards to her care. Greater than 50% of the time was spent in coordination of patient's care. João Wiseman MD cc:Rosas Pathak MD; Joe Rodriguez MD 481 TT: 08/02/2016 19:02:29 Confirmation # [id number] Dictation # [id number]
--- NOTE | 2016-08-02 19:19 | CARD ---
APPROVED REPORT EKG Measurement Heart [id number] <Conclusion> Ventricular-paced rhythm Abnormal ECG
--- NOTE | 2016-08-02 19:21 | CARD ---
APPROVED REPORT EKG Measurement Heart [id number] <Conclusion> Probable atrial fibrillation with slow ventricular rate ST & Marked T wave abnormality, consider inferior ischemia ST & Marked T wave abnormality, consider anterolateral ischemia Prolonged QT Abnormal ECG
[2016-08-02] MEDS ORDERED: Sodium Chloride 3% for Inhalation 4 ML VIAL.NEB IH PRN (20:15)
[2016-08-02] MEDS: Enoxaparin 80 mg Syringe SC SCH (20:39)
[2016-08-02] MEDS ORDERED: Piperacillin/Tazobact 4.5 GM in Sodium Chloride 0.9% 100 ML IVPB SCH (22:00)
[2016-08-03] MEDS: Albuterol-Ipratrop 3 mg / 0.5 (3 ml) UD INH SCH ×4 (01:00→19:29)
[2016-08-03] MEDS ORDERED: Piperacillin/Tazobact 3.375 GM in Sodium Chloride 0.9% 100 ML IVPB SCH (02:06)
[2016-08-03] MEDS: Piperacillin/Tazobact 3.375 GM in Sodium Chloride 0.9% 100 ML IVPB SCH ×4 (02:50→20:16)
[2016-08-03 04:50] LABS: BASO % 0.3 % (0.0-2.0); BLOOD UREA NITROGEN 21 mg/dl (7-17); CALCIUM 8.3 mg/dL (8.4-10.2); EOS # 0.1 K/uL (0.0-0.7); GFR AFRICAN-AMERICAN > 60; GFR NON-AFRICAN AMERICAN > 60; HEMOGLOBIN 11.5 g/dL (12.0-16.0); LYMPH # 1.1 K/uL (1.0-4.3); LYMPH % 8.4 % (20.0-40.0); MEAN CELL VOLUME 92.7 fl (81.0-99.0); MEAN CORPUSCULAR HGB CONC 32.3 g/dL (33.0-37.0); MONO % 7.5 % (0.0-10.0); NEUT # 11.1 K/uL (1.8-7.0); NEUT % 82.8 % (50.0-75.0); RBC 3.85 Mil/uL (3.80-5.20); RED CELL DISTRIBUTION WIDTH 14.2 % (11.5-14.5); WHITE BLOOD COUNT 13.4 K/uL (4.8-10.8)
[2016-08-03] MEDS: Enoxaparin 80 mg Syringe SC SCH ×2 (08:27→20:15)
[2016-08-03] MEDS: Potassium Chloride 20 mEq ER Tab PO SCH (08:39)
[2016-08-03] MEDS: guaiFENesin-DM 600-30 mg ER Tab PO SCH ×2 (09:24→16:05)
--- NOTE | 2016-08-03 10:15 | CP.PCM.PN ---
Subjective - Date & Time of Evaluation Date of Evaluation: 08/03/16 Time of Evaluation: 10:15 - Subjective Subjective: As per chart, GLORY done successful yesterday identifying left atrial thrombus, patient continued on Lovenox 70 mg q12 SC. Noted to have CXR changes, with continued leokoyctosis and cough. Patient started on HCAP regimen of Vancomycin and Zosyn last night as well as given lasix 40 mg once for decreased urine output. Patient is evaluated at bedside. Heart Rhythm reviewed, paced @ 60 BPM. STates has intermittent SOB, alleviated by O2 via NC. No current complaints of chest pain, palpitations, lower extremity swelling, abdominal pain, nausea/ vomiting. Patient tolerating PO. Patient's Niece wishes to have updates: [phone] Objective - Vital Signs/Intake and Output Vital Signs (last 24 hours): Temp Pulse Resp BP Pulse Ox 97.5 F L 60 38 H 108/60 94 L 08/03/16 07:49 08/03/16 07:49 08/03/16 07:49 08/03/16 07:49 08/03/16 07:49 - Medications Medications: Current Medications Acetaminophen (Tylenol 325mg Tab) 650 mg PO Q6 PRN PRN Reason: Headache Albuterol/Ipratropium (Duoneb 3 Mg/0.5 Mg (3 Ml) Ud) 3 ml INH RQ6 [facility] Last Admin: 08/03/16 07:17 Dose: 3 ml Atorvastatin Calcium (Lipitor) 10 mg PO DAILY [facility] Last Admin: 08/03/16 08:26 Dose: 10 mg Carvedilol (Coreg) 3.125 mg PO BID [facility] Enoxaparin Sodium (Lovenox) 70 mg SC Q12 [facility] PRN Reason: Protocol Last Admin: 08/03/16 08:27 Dose: 70 mg Guaifenesin/Dextromethorphan (Mucinex-Dm 600-30 Mg) 1 tab PO BID [facility] Last Admin: 08/03/16 09:24 Dose: 1 tab Amiodarone HCl 450 mg/ (Dextrose) 259 mls @ 34.53 mls/hr IVPB .[id number] DILLON; 1 MG /MIN PRN Reason: Protocol Vancomycin HCl 1 gm/ Sodium (Chloride) 250 mls @ 166.667 mls/hr IVPB Q12 [facility] Last Admin: 08/03/16 09:26 Dose: 166.667 mls/hr Piperacillin Sod/Tazobactam (Sod 3.375 gm/ Sodium Chloride) 100 mls @ 100 mls/ hr IVPB Q6H [facility] Last Admin: 08/03/16 08:27 Dose: 100 mls/hr Potassium Chloride (K-Dur 20 Meq Er Tab) 20 meq PO DAILY [facility] Last Admin: 08/03/16 08:39 Dose: Not Given Risperidone (Risperdal Tab) 0.25 mg PO HS [facility] Last Admin: 08/02/16 22:30 Dose: 0.25 mg - Labs Labs: 08/03/16 03:50 08/03/16 03:50 PT 15.1 Seconds (9.8-13.1) H 07/30/16 19:10 INR 1.3 (0.9-1.2) H 07/30/16 19:10 APTT 26.5 Seconds (25.6-37.1) 07/30/16 19:10 - Constitutional Appears: Non-toxic - ENT Exam ENT Exam: Mucous Membranes Dry - Neck Exam Neck Exam: Full ROM - Respiratory Exam Respiratory Exam: Decreased Breath Sounds (R>L) - Cardiovascular Exam Cardiovascular Exam: +S1, +S2 - GI/Abdominal Exam GI & Abdominal Exam: Soft, Normal Bowel Sounds - Extremities Exam Extremities Exam: Normal Inspection. absent: Calf Tenderness - Back Exam Back Exam: absent: CVA tenderness (L), CVA tenderness (R) - Neurological Exam Neurological Exam: Alert, Awake, Normal Gait - Psychiatric Exam Psychiatric exam: Normal Affect, Normal Mood - Skin Skin Exam: Dry, Normal Color, Warm Assessment and Plan - Assessment and Plan (Free Text) Assessment: 85 year old female admitted for CAP, with acute decompenstation likely secondary to CHF and subsequent transfer to ICU. Patient s/p GLORY today without cardioversion due to thrombus in left atrial appendage. (1) Pneumonia, -CXR reviewed: acute respiratory insufficiency, right upper lobe and left mid lung hazy opacity, patient started on Vancomycin 1g BID, and Zosyn 3.3375 q6 -ID consult recommendations appreciated - BCx no growth - Incentive Spirometry - duonebs QID -O2 as needed . History of atrial fibrillation and IHSS Patients last episode of afib in september 2015. At the time of interrogation, patient was in atrial fibrillation for approximately 19 hours. -now with thrombus in left atrial appendage, needs therapeutic anticoagulation -as per Dr. Turner recommendation s/p GLORY: NOAC, can consider elective cardioversion after 1 month of anticoagulation. -started on lovenox 70mg q 12 -amiodarone drip discontinued, as per discontinue amiodarone .CHF (congestive heart failure) Echo (11/23/2014) showing abnormal relaxation pattern as well as decrease in EF (45-50%). - Coreg 3.125mg BID/ Lasix 20mg as per cardiology. monitor BP - Potassium 20meq daily - simvastatin 20meq qhs Bacterial conjunctivitis of right eye -improved DAY 5: Ciprofloxacin 0.3% 1-2gtts, Q2H x2 days then Q4H for remaining 5 days - q4h today .DVT prophylaxis -d/c lovenox 40mg SC -patient requires therapeutic anticoagulation for thrombus in left atrium -started on lovenox 70mg q12, consider switching to NOAC. (6) Hypertension Assessment and Plan: Chronic, stable. - coreg/lasix , as per cardio, monitor BP (7) Biplolar disorder -risperdal 0.25 qhs
--- NOTE | 2016-08-03 14:16 | PN ---
DATE: 08/03/2016 LOCATION: The patient is in ICU, bed 422. TIME SPENT: 35 minutes. Events since admission reviewed. An 85-year-old female admitted with shortness of breath secondary t o CHF and pneumonia, history of recurrent AFib, status post ablation, status post AICD/permanent pace maker insertion, noted to have slow AFib with hypotension. Seen by cardiology. Noted to have a thro mbus at the atrial appendage. On anticoagulation to prevent embolization. Attempt for cardioversion postponed. Remains alert, awake, follows commands appropriate, less short of breath, no cough, no p alpitations. Denies chest pain, palpitations. Reduced appetite. No dysuria or hematuria. Vital si gns, telemetry, atrial fibrillation, rate controlled. PHYSICAL EXAMINATION: VITAL SIGNS: Temperature 97.5, heart rate is 60, blood pressure 126/60, respiratory rate 33, saturat ing 97%. Intake 1100, output 1100. Weight 145 pounds. HEENT: Pupils reactive. Conjunctivae are pink. Sclerae white. NECK: Supple. Trachea central. HEART: Rhythm irregular. CHEST: Bilateral breath sounds, scattered rhonchi. ABDOMEN: Bowel sounds present, soft. EXTREMITIES: 1+ pitting pedal edema. NEUROLOGIC: Nonfocal. SKIN: Warm without rash. PSYCHIATRIC: Normal affect. Oriented to name, place and time. SKIN: Without rash. CURRENT MEDICATIONS: Tylenol 650 q. 6 p.r.n. for headache, albuterol, Atrovent 3 mL via nebulizer q. 6 hours, amiodarone 400 mg at 1 mg per minute completed and discontinued, Lipitor 10 mg daily, Coreg 3.125 mg twice daily, Lovenox 70 mg subQ q. 12, Mucinex DM 600/30 one tablet p.o. twice daily, Zosyn 3.375 grams IV q. 6, potassium supplement, Risperdal 0.25 mg at bedtime, vancomycin 1 gram IV q. 12. LABORATORY DATA: WBC 13.4, hemoglobin 11.5, hematocrit 35.7, platelet count 234, neutrophils 83, lym phocytes 8.4, monocytes 7.5. PT 15.1, INR 1.3, PTT 26.5. SMA-7: Sodium 140, potassium 4, chloride 104, CO2 25, blood urea nitrogen 21, creatinine 0.8, calcium 8.3. Urinalysis: WBC less than 1, epit helial cells less than 1, RBC 2, leukoesterase negative. Microbiology: Urine culture, no growth rep orted. Sputum culture negative. Blood culture no growth reported. X-ray on 08/02, interval appeara nce of hazy opacities at the right upper lobe and left mid lung since the previous exam. Question pu lmonary congestion versus pneumonic infiltrate. No significant pleural effusion or pneumothorax. Ca rdiac silhouette is mildly enlarged. Left-sided pacemaker again seen. IMPRESSION: 1. Admitted with pneumonia, shortness of breath, opacity noted in the right upper lobe and left mid lung. Currently on vancomycin and Zosyn. Followed by infectious disease consult. Blood culture no growth. Incentive spirometry, DuoNeb q.i.d. Maintain oxygen saturation above 94%. 2. Paroxysmal atrial fibrillation, status post permanent pacemaker insertion and status post ablatio n, breakthrough atrial fibrillation, status post GLORY. Noted to have thrombus at the left atrial appe ndage. Cardioversion hold. On anticoagulation with Lovenox 70 mg subQ, to reattempt after fully ant icoagulated. 3. Idiopathic hypertrophic subaortic stenosis, cardiomyopathy on Coreg at 3.125 mg b.i.d., potassium supplement. 4. Congestive heart failure. Echo on 11/23/2014, EF of 45%-50%. 5. Bilateral conjunctivitis, improved on ciprofloxacin eyedrops 0.3%, 1-2 drops q. 2 hours. 6. Continue gastrointestinal prophylaxis. The patient on Lovenox, will also cover for deep venous t hrombosis prophylaxis. 7. Hypertension, chronic, stable. 8. Bipolar disorder, on Risperdal 0.25 mg at bedtime. Chris Patel MD cc: 170 TT: 08/03/2016 14:15:19 Confirmation # [id number] Dictation # [id number] sandra
[2016-08-04] MEDS: Albuterol-Ipratrop 3 mg / 0.5 (3 ml) UD INH SCH ×4 (00:59→19:32)
[2016-08-04] MEDS: Piperacillin/Tazobact 3.375 GM in Sodium Chloride 0.9% 100 ML IVPB SCH ×4 (02:44→20:14)
[2016-08-04 05:46] LABS: BASO # 0.1 K/uL (0.0-0.2); EOS # 0.3 K/uL (0.0-0.7); EOS % 2.5 % (0.0-4.0); LYMPH # 0.9 K/uL (1.0-4.3); LYMPH % 8.7 % (20.0-40.0); MEAN CELL VOLUME 92.7 fl (81.0-99.0); MEAN CORPUSCULAR HEMOGLOBIN 30.1 pg (27.0-31.0); MEAN CORPUSCULAR HGB CONC 32.5 g/dL (33.0-37.0); MEAN PLATELET VOLUME 8.1 fl (7.2-11.7); MONO # 0.8 K/uL (0.0-0.8); NEUT # 8.4 K/uL (1.8-7.0); NEUT % 79.8 % (50.0-75.0); RBC 3.65 Mil/uL (3.80-5.20); RED CELL DISTRIBUTION WIDTH 14.1 % (11.5-14.5); WHITE BLOOD COUNT 10.5 K/uL (4.8-10.8)
[2016-08-04 06:00] LABS: BLOOD UREA NITROGEN 15 mg/dl (7-17); CALCIUM 8.2 mg/dL (8.4-10.2); GFR AFRICAN-AMERICAN > 60; GFR NON-AFRICAN AMERICAN 60
--- NOTE | 2016-08-04 06:34 | CP.PCM.PN ---
Subjective - Date & Time of Evaluation Date of Evaluation: 08/04/16 Time of Evaluation: 09:07 - Subjective Subjective: No acute events overnight. Clinically patient is improved. Patient sitting upright in bed, O2 via NC in place, no respiratory distress noted, O2 is not making any difference. Complaints of +productive cough, using incentive spirometer. Breathing improved. Nurse reports patient is more alert and appears better, asking for toothbrush, now concerned with hygeine. Objective - Vital Signs/Intake and Output Vital Signs (last 24 hours): Temp Pulse Resp BP Pulse Ox 97.7 F 60 32 H 90/58 L 98 08/03/16 20:00 08/04/16 06:00 08/04/16 06:00 08/04/16 06:00 08/04/16 06:00 Intake and Output: 08/03/16 08/04/16 18:59 06:59 Intake Total 930 Output Total 700 300 Balance 230 -300 - Medications Medications: Current Medications Acetaminophen (Tylenol 325mg Tab) 650 mg PO Q6 PRN PRN Reason: Headache Albuterol/Ipratropium (Duoneb 3 Mg/0.5 Mg (3 Ml) Ud) 3 ml INH RQ6 [facility] Last Admin: 08/04/16 00:59 Dose: 3 ml Atorvastatin Calcium (Lipitor) 10 mg PO DAILY [facility] Last Admin: 08/03/16 08:26 Dose: 10 mg Carvedilol (Coreg) 3.125 mg PO Q12 [facility] Last Admin: 08/03/16 20:15 Dose: 3.125 mg Enoxaparin Sodium (Lovenox) 70 mg SC Q12 [facility] PRN Reason: Protocol Last Admin: 08/03/16 20:15 Dose: 70 mg Guaifenesin/Dextromethorphan (Mucinex-Dm 600-30 Mg) 1 tab PO BID [facility] Last Admin: 08/03/16 16:05 Dose: 1 tab Amiodarone HCl 450 mg/ (Dextrose) 259 mls @ 34.53 mls/hr IVPB .Q7H31M [facility]; 1 MG /MIN PRN Reason: Protocol Vancomycin HCl 1 gm/ Sodium (Chloride) 250 mls @ 166.667 mls/hr IVPB Q12 [facility] Last Admin: 08/03/16 20:17 Dose: 166.667 mls/hr Piperacillin Sod/Tazobactam (Sod 3.375 gm/ Sodium Chloride) 100 mls @ 100 mls/ hr IVPB Q6H [facility] Last Admin: 08/04/16 02:44 Dose: 100 mls/hr Potassium Chloride (K-Dur 20 Meq Er Tab) 20 meq PO DAILY [facility] Last Admin: 08/03/16 08:39 Dose: Not Given Risperidone (Risperdal Tab) 0.25 mg PO HS [facility] Last Admin: 08/03/16 21:58 Dose: 0.25 mg - Labs Labs: 08/04/16 05:00 08/04/16 05:00 PT 15.1 Seconds (9.8-13.1) H 07/30/16 19:10 INR 1.3 (0.9-1.2) H 07/30/16 19:10 APTT 26.5 Seconds (25.6-37.1) 07/30/16 19:10 - Constitutional Appears: Non-toxic - Head Exam Head Exam: NORMAL INSPECTION - ENT Exam ENT Exam: Normal Exam - Respiratory Exam Respiratory Exam: Clear to Ausculation Bilateral (good air entry bilaterally), NORMAL BREATHING PATTERN. absent: Rhonchi, Wheezes, Respiratory Distress - Cardiovascular Exam Cardiovascular Exam: REGULAR RHYTHM (paced- 60 bpm on monitor) - GI/Abdominal Exam GI & Abdominal Exam: Soft. absent: Distended Additional comments: unremarkable - Neurological Exam Neurological Exam: Alert, Awake, CN II-XII Intact - Psychiatric Exam Psychiatric exam: Flat Affect - Skin Skin Exam: Dry, Intact Assessment and Plan - Assessment and Plan (Free Text) Assessment: 85 year old female with PMH of afib, IHSS, CHF, hypertension, bipolar disorder admitted for CAP, with acute decompenstation likely secondary to CHF, due to loss of pacing, and subsequent transfer to ICU. Patient s/p GLORY without cardioversion due to thrombus in left atrial appendage. Clinically improved today, patient is more alert. . Pneumonia -clinically improved, repeat CXR follow up results - Day 2: Vancomycin 1g BID, and Zosyn 3.3375 q6, followup rpt CXR -ID consult recommendations appreciated - BCx no growth - Incentive Spirometry - duonebs QID - O2 as needed - leukocytosis resolved: 10.5 -repeat cxr today . History of atrial fibrillation and IHSS Patients last episode of afib in september 2015. At the time of interrogation, patient was in atrial fibrillation for approximately 19 hours. -now with thrombus in left atrial appendage, needs therapeutic anticoagulation -as per Dr. Turner recommendation s/p GLORY: consider NOAC, can consider elective cardioversion after 1 month of anticoagulation. -started on lovenox 70mg q 12 -Case d/w Dr. Turner, advised to start Amiodarone 400mg PO daily, to reevaluate the patient . CHF (congestive heart failure) Echo (11/23/2014) showing abnormal relaxation pattern as well as decrease in EF (45-50%). - Coreg 3.125mg BID/ Lasix 20mg as per cardiology. monitor BP - Potassium 20meq daily - simvastatin 20meq qhs . Bacterial conjunctivitis of right eye -resolved completed 5 day course: Ciprofloxacin 0.3% 1-2gtts, Q2H x2 days then Q4H for remaining 5 days . DVT prophylaxis -d/c lovenox 40mg SC -patient requires therapeutic anticoagulation for thrombus in left atrium -started on lovenox 70mg q12 . Hypertension Assessment and Plan: Chronic, stable. - coreg/lasix, as per cardio, monitor BP . Biplolar disorder -risperdal 0.25 qhs
[2016-08-04] MEDS: Potassium Chloride 20 mEq ER Tab PO SCH (08:36)
[2016-08-04] MEDS: Enoxaparin 80 mg Syringe SC SCH ×2 (08:39→20:15)
[2016-08-04] MEDS: guaiFENesin-DM 600-30 mg ER Tab PO SCH ×2 (08:39→16:45)
--- NOTE | 2016-08-04 11:21 | CP.PCM.PN ---
Subjective - Date & Time of Evaluation Date of Evaluation: 08/04/16 Time of Evaluation: 11:30 - Subjective Subjective: ID NOTE CHART REVIEWED AWAIT CULTURES WOULD CONTINUE ZOSYN/VANCOMYCIN Objective - Vital Signs/Intake and Output Vital Signs (last 24 hours): Temp Pulse Resp BP Pulse Ox 98.5 F 60 12 142/69 100 08/04/16 08:00 08/04/16 08:39 08/04/16 08:00 08/04/16 08:39 08/04/16 08:00 Intake and Output: 08/04/16 08/04/16 06:59 18:59 Output Total 300 Balance -300 - Medications Medications: Current Medications Acetaminophen (Tylenol 325mg Tab) 650 mg PO Q6 PRN PRN Reason: Headache Albuterol/Ipratropium (Duoneb 3 Mg/0.5 Mg (3 Ml) Ud) 3 ml INH RQ6 [facility] Last Admin: 08/04/16 07:58 Dose: 3 ml Amiodarone HCl (Cordarone) 400 mg PO DAILY [facility] Atorvastatin Calcium (Lipitor) 10 mg PO DAILY [facility] Last Admin: 08/04/16 08:39 Dose: 10 mg Carvedilol (Coreg) 3.125 mg PO Q12 [facility] Last Admin: 08/04/16 08:39 Dose: 3.125 mg Enoxaparin Sodium (Lovenox) 70 mg SC Q12 [facility] PRN Reason: Protocol Last Admin: 08/04/16 08:39 Dose: 70 mg Guaifenesin/Dextromethorphan (Mucinex-Dm 600-30 Mg) 1 tab PO BID [facility] Last Admin: 08/04/16 08:39 Dose: 1 tab Amiodarone HCl 450 mg/ (Dextrose) 259 mls @ 34.53 mls/hr IVPB .Q7H31M [facility]; 1 MG /MIN PRN Reason: Protocol Vancomycin HCl 1 gm/ Sodium (Chloride) 250 mls @ 166.667 mls/hr IVPB Q12 [facility] Last Admin: 08/04/16 09:35 Dose: 166.667 mls/hr Piperacillin Sod/Tazobactam (Sod 3.375 gm/ Sodium Chloride) 100 mls @ 100 mls/ hr IVPB Q6H [facility] Last Admin: 08/04/16 08:39 Dose: 100 mls/hr Potassium Chloride (K-Dur 20 Meq Er Tab) 20 meq PO DAILY [facility] Last Admin: 08/04/16 08:36 Dose: Not Given Risperidone (Risperdal Tab) 0.25 mg PO HS [facility] Last Admin: 08/03/16 21:58 Dose: 0.25 mg - Labs Labs: 08/04/16 05:00 08/04/16 05:00 PT 15.1 Seconds (9.8-13.1) H 07/30/16 19:10 INR 1.3 (0.9-1.2) H 07/30/16 19:10 APTT 26.5 Seconds (25.6-37.1) 07/30/16 19:10
--- NOTE | 2016-08-04 13:18 | PN ---
DATE: 08/04/2016 LOCATION: The patient in ICU, bed 422. TIME SPENT: 35 minutes. HISTORY OF PRESENT ILLNESS: Events since admission reviewed. The patient is seen and evaluated at t bedside. An 85-year-old female admitted with shortness of breath secondary to CHF, pneumonia, his tory of recurrent AFib, status post ablation, status post AICD/permanent pacemaker insertion, noted t o be in slow AFib with hypotension, status post GLORY, noted to have a thrombus at the atrial appendage , now on anticoagulation to prevent embolization. Attempt to cardioversion . Overnight unevent ful. Less shortness of breath. No chest pain or palpitation. Afebrile. Normotensive. This morning , alert and awake, follows commands, appropriate. Denies shortness of breath, chest pain, palpitatio n. No headache. Appears anxious. No abdominal pain, diarrhea or dysuria. Vital signs, telemetry, atrial fibrillation. PHYSICAL EXAMINATION: VITAL SIGNS: Temperature 98.5, heart rate 60, respiratory rate 12, blood pressure 128/59, pulse oxim etry 99% on 2 liters nasal cannula. Intake 930, output 1000, negative 70 mL. Weight 148 pounds. HEENT: Pupils reactive. Conjunctivae pink. Sclerae are anicteric. NECK: Supple. Trachea central. HEART: Rhythm irregular. CHEST: Bilateral breath sounds, scattered rhonchi. ABDOMEN: Bowel sounds present, soft. EXTREMITIES: With 1+ pitting edema. Dorsalis pedis palpable. No palpable cord. NEUROLOGIC: Nonfocal. SKIN: Warm without rash. PSYCHIATRIC: Normal affect. Oriented to name, place and time. CURRENT MEDICATIONS: Tylenol 650 q. 6 hours p.r.n. for headache, albuterol/Atrovent inhalation 3 mL via nebulizer q. 6 hours, amiodarone discontinued, Lipitor 10 mg daily, Coreg 3.125 mg twice daily, L ovenox 70 mg subQ q. 12 hours, Mucinex DM 600/30 one tablet twice daily, Zosyn 3.375 grams q. 6 hours , vancomycin 1 gram IV q. 12 hours, potassium supplement, Risperdal 0.25 mg at bedtime. LABORATORY DATA: WBC 10.5, hemoglobin 11, hematocrit 33.8, platelet count 267, neutrophils 79.8, lym phocytes 8.7, monocytes 8, eosinophils 2.5. PT 15.1, INR 1.3, PTT 26.5. SMA-7: Sodium 141, potassi um 4, chloride 108, CO2 of 24, blood urea nitrogen 15, creatinine 0.9. Glucose 87. Chest x-ray: In terval appearance of hazy opacity at the right upper lobe and left mid lung compared to the previous examination, question pneumonia. IMPRESSION: 1. Neurologic: Alert and oriented x 3. History of schizophrenia, stable. On respirator. 2. Cardiac: Chronic atrial fibrillation, status post ablation, status post automatic implantable ca rdioverter-defibrillator. Noted to be in slow atrial fibrillation with hypertension, status post GLORY that shows left atrial appendage, on therapeutic anticoagulation, to reattempt after 3 weeks of anti coagulation. History of idiopathic hypertrophic subaortic stenosis/cardiomyopathy, stable. 3. Pulmonary: Possible pneumonia. Blood culture: No growth. Continue DuoNeb, incentive spirometry , oxygen as needed, maintain saturation over 94. Continue antibiotic as recommended by ID, on vancom ycin and Zosyn. 4. Congestive heart failure: Echo shows diastolic dysfunction, ejection fraction reportedly 45% to 50%. Continue Coreg 3.125 mg b.i.d., Lasix 20 mg daily, potassium supplement. 5. Hyperlipidemia: On simvastatin. 6. Infectious disease: Bacterial conjunctivitis of right eye. On ciprofloxacin eyedrops 1-2 drops q. 2 hours for 2 days. Continue deep venous thrombosis prophylaxis, on Lovenox 70 mg subQ q. 12 hour s. May consider switch to novel oral anticoagulants. 7. Hypertension, chronic, stable: On Coreg, Lasix. 8. Bipolar disorder: On Risperdal 0.25 mg at bedtime. 9. The patient remains clinically stable, can be transferred to telemetry floor and continue with an ticoagulation for 3 weeks. Chris Patel MD cc: 170 TT: 08/04/2016 13:17:48 Confirmation # [id number] Dictation # [id number] ln
--- NOTE | 2016-08-04 16:30 | RAD ---
PROCEDURE: CHEST RADIOGRAPH, 1 VIEW HISTORY: pneumonia COMPARISON: Comparison made with prior study 08/02/2016 FINDINGS: LUNGS: Mild central pulmonary vascular congestive changes with what appears to represent some mild bilateral lower lobe alveolar-type infiltrates and questionable small effusions. Poor inspiration with low lung volumes also contribute. PLEURA: As above. No apparent pneumothorax CARDIOVASCULAR: Cardiomegaly. No change bipolar pacemaker/defibrillator. OSSEOUS STRUCTURES: No significant abnormalities. VISUALIZED UPPER ABDOMEN: Normal. OTHER FINDINGS: None. IMPRESSION: Mild central pulmonary vascular congestive changes with what appears to represent some mild bilateral lower lobe alveolar-type infiltrates and questionable small effusions. Poor inspiration with low lung volumes also contribute.
[2016-08-05] MEDS: Albuterol-Ipratrop 3 mg / 0.5 (3 ml) UD INH SCH ×4 (00:59→19:50)
[2016-08-05] MEDS: Piperacillin/Tazobact 3.375 GM in Sodium Chloride 0.9% 100 ML IVPB SCH ×4 (03:45→21:03)
[2016-08-05 05:28] LABS: BASO # 0.1 K/uL (0.0-0.2); BASO % 0.5 % (0.0-2.0); EOS # 0.2 K/uL (0.0-0.7); EOS % 2.1 % (0.0-4.0); HEMOGLOBIN 11.1 g/dL (12.0-16.0); LYMPH # 1.3 K/uL (1.0-4.3); LYMPH % 11.9 % (20.0-40.0); MEAN CELL VOLUME 93.3 fl (81.0-99.0); MEAN CORPUSCULAR HGB CONC 32.1 g/dL (33.0-37.0); MONO # 0.8 K/uL (0.0-0.8); MONO % 7.5 % (0.0-10.0); NEUT # 8.7 K/uL (1.8-7.0); NRBC % 0.1 % (0.0-0.0); RBC 3.71 Mil/uL (3.80-5.20); RED CELL DISTRIBUTION WIDTH 13.8 % (11.5-14.5); WHITE BLOOD COUNT 11.1 K/uL (4.8-10.8)
[2016-08-05 06:13] LABS: BLOOD UREA NITROGEN 16 mg/dl (7-17); CALCIUM 8.1 mg/dL (8.4-10.2); GFR AFRICAN-AMERICAN > 60; GFR NON-AFRICAN AMERICAN 60
--- NOTE | 2016-08-05 06:28 | CP.PCM.PN ---
<Sammy Ontiveros - Last Filed: 08/05/16 16:06> Subjective - Date & Time of Evaluation Date of Evaluation: 08/05/16 Time of Evaluation: 07:00 - Subjective Subjective: No acute events overnight. Patient seen and examined with Dr. Gooden. Patient appears improved today. Easily arousable, alert wearing NC, denies dyspnea but appears mildly dyspneic. No cough while in exam room. Case d/w Dr. Rodriguez. Will d/c Amiodarone. Start Xarelto. Patient can be transferred out of ICU. Objective - Vital Signs/Intake and Output Vital Signs (last 24 hours): Temp Pulse Resp BP Pulse Ox 98.1 F 60 25 H 180/96 H 96 08/04/16 23:04 08/05/16 05:57 08/05/16 05:57 08/05/16 05:57 08/05/16 05:57 Intake and Output: 08/04/16 08/05/16 18:59 06:59 Intake Total 1170 550 Output Total 800 300 Balance 370 250 - Medications Medications: Current Medications Acetaminophen (Tylenol 325mg Tab) 650 mg PO Q6 PRN PRN Reason: Headache Albuterol/Ipratropium (Duoneb 3 Mg/0.5 Mg (3 Ml) Ud) 3 ml INH RQ6 [facility] Last Admin: 08/05/16 00:59 Dose: 3 ml Amiodarone HCl (Cordarone) 400 mg PO DAILY [facility] Last Admin: 08/04/16 12:38 Dose: 400 mg Atorvastatin Calcium (Lipitor) 10 mg PO DAILY [facility] Last Admin: 08/04/16 08:39 Dose: 10 mg Carvedilol (Coreg) 3.125 mg PO Q12 [facility] Last Admin: 08/04/16 20:16 Dose: 3.125 mg Enoxaparin Sodium (Lovenox) 70 mg SC Q12 [facility] PRN Reason: Protocol Last Admin: 08/04/16 20:15 Dose: 70 mg Guaifenesin/Dextromethorphan (Mucinex-Dm 600-30 Mg) 1 tab PO BID [facility] Last Admin: 08/04/16 16:45 Dose: 1 tab Amiodarone HCl 450 mg/ (Dextrose) 259 mls @ 34.53 mls/hr IVPB .Q7H31M [facility]; 1 MG /MIN PRN Reason: Protocol Vancomycin HCl 1 gm/ Sodium (Chloride) 250 mls @ 166.667 mls/hr IVPB Q12 [facility] Last Admin: 08/04/16 20:13 Dose: 166.667 mls/hr Piperacillin Sod/Tazobactam (Sod 3.375 gm/ Sodium Chloride) 100 mls @ 100 mls/ hr IVPB Q6H [facility] Last Admin: 08/05/16 03:45 Dose: 100 mls/hr Potassium Chloride (K-Dur 20 Meq Er Tab) 20 meq PO DAILY [facility] Last Admin: 08/04/16 08:36 Dose: Not Given Risperidone (Risperdal Tab) 0.25 mg PO HS [facility] Last Admin: 08/04/16 21:00 Dose: 0.25 mg - Labs Labs: 08/05/16 04:15 08/05/16 04:15 PT 15.1 Seconds (9.8-13.1) H 07/30/16 19:10 INR 1.3 (0.9-1.2) H 07/30/16 19:10 APTT 26.5 Seconds (25.6-37.1) 07/30/16 19:10 - Constitutional Appears: Non-toxic - Eye Exam Eye Exam: Normal appearance - Respiratory Exam Respiratory Exam: Rales (bilaterally), NORMAL BREATHING PATTERN. absent: Prolonged Expiratory Phase, Wheezes - Cardiovascular Exam Cardiovascular Exam: REGULAR RHYTHM, +S1, +S2 - GI/Abdominal Exam GI & Abdominal Exam: Soft. absent: Tenderness - Rectal Exam Rectal Exam: Deferred - Extremities Exam Extremities Exam: absent: Pedal Edema, Tenderness - Neurological Exam Neurological Exam: Alert, Awake, CN II-XII Intact - Psychiatric Exam Psychiatric exam: Flat Affect - Skin Skin Exam: Dry, Intact, Pallor Assessment and Plan - Assessment and Plan (Free Text) Assessment: 85 year old female admitted for CAP, with acute decompenstation likely secondary to CHF and subsequent transfer to ICU. Patient s/p GLORY today without cardioversion due to thrombus in left atrial appendage. Started on Xarelto today , d/c lovenox. . Pneumonia . History of atrial fibrillation and IHSS . CHF (congestive heart failure) . Bacterial conjunctivitis of right eye . DVT prophylaxis . Hypertension . Biplolar disorder . Pneumonia -CXR reviewed: acute respiratory insufficiency, right upper lobe and left mid lung hazy opacity, patient started on Vancomycin 1g BID, and Zosyn 3.3375 q6 - ID consult recommendations appreciated - Incentive Spirometry - duonebs QID, space out to q6 -O2 as needed . History of atrial fibrillation and IHSS -currently in afib, thrombus in left atrial appendage, start Xarelto -as per Dr. Turner recommendation s/p GLORY: elective cardioversion after 1 month of anticoagulation. -lovenox 70mg q 12 discontinued . CHF (congestive heart failure) Echo (11/23/2014) showing abnormal relaxation pattern as well as decrease in EF (45-50%). - Coreg 3.125mg BID/ Lasix 20mg as per cardiology - Potassium 20meq daily/simvastatin 20meq qhs . Bacterial conjunctivitis of right eye -resolved s/p 5 day course of cipro . DVT prophylaxis -xarelto. . Hypertension Assessment and Plan: Chronic, stable. - coreg/lasix , as per cardio, monitor BP . Biplolar disorder -risperdal 0.25 qhs <Asim Gooden - Last Filed: 08/06/16 06:43> Objective - Vital Signs/Intake and Output Vital Signs (last 24 hours): Temp Pulse Resp BP Pulse Ox 98 F 60 18 140/60 99 08/06/16 03:50 08/06/16 04:59 08/06/16 04:59 08/06/16 04:59 08/06/16 04:59 Intake and Output: 08/05/16 08/06/16 18:59 06:59 Intake Total 550 Output Total 400 Balance 150 - Medications Medications: Current Medications Acetaminophen (Tylenol 325mg Tab) 650 mg PO Q6 PRN PRN Reason: Headache Albuterol/Ipratropium (Duoneb 3 Mg/0.5 Mg (3 Ml) Ud) 3 ml INH RQ6 [facility] Last Admin: 08/06/16 01:07 Dose: 3 ml Atorvastatin Calcium (Lipitor) 10 mg PO DAILY [facility] Last Admin: 08/05/16 09:09 Dose: 10 mg Carvedilol (Coreg) 3.125 mg PO Q12 [facility] Last Admin: 08/05/16 20:53 Dose: 3.125 mg Guaifenesin/Dextromethorphan (Mucinex-Dm 600-30 Mg) 1 tab PO BID [facility] Last Admin: 08/05/16 16:01 Dose: 1 tab Vancomycin HCl 1 gm/ Sodium (Chloride) 250 mls @ 166.667 mls/hr IVPB Q12 [facility] Last Admin: 08/05/16 10:00 Dose: 166.667 mls/hr Piperacillin Sod/Tazobactam (Sod 3.375 gm/ Sodium Chloride) 100 mls @ 100 mls/ hr IVPB Q6H [facility] Last Admin: 08/06/16 03:50 Dose: 100 mls/hr Potassium Chloride (K-Dur 20 Meq Er Tab) 20 meq PO DAILY [facility] Last Admin: 08/05/16 09:09 Dose: 20 meq Risperidone (Risperdal Tab) 0.25 mg PO HS [facility] Last Admin: 08/05/16 21:03 Dose: 0.25 mg Rivaroxaban (Xarelto) 15 mg PO QD5 [facility] PRN Reason: Protocol Last Admin: 08/05/16 16:01 Dose: 15 mg - Labs Labs: 08/06/16 04:30 08/06/16 04:30 PT 15.1 Seconds (9.8-13.1) H 07/30/16 19:10 INR 1.3 (0.9-1.2) H 07/30/16 19:10 APTT 26.5 Seconds (25.6-37.1) 07/30/16 19:10 Attending/Attestation - Attestation I have personally seen and examined this patient.: Yes I have fully participated in the care of the patient.: Yes I have reviewed all pertinent clinical information, including history, physical exam and plan: Yes
--- NOTE | 2016-08-05 08:28 | CP.PCM.PN ---
Subjective - Date & Time of Evaluation Date of Evaluation: 08/05/16 Time of Evaluation: 08:05 - Subjective Subjective: Following discovery of a thrombus in LA appendage during GLORY it was decided to leave her in A Fib on oral anticoagulation (for fear of systemic embolism if sinus rhythm is restored) Amiodarone was D/Yifan for this reason Now pt in A Fib with VVI paced rhythm at 60 BPM BP 156/80 mm Hg Few basal rales+ Pt mildly dyspnoic ( Pulse ox 99% on O2 supplement) Will give dose of Lasix to relieve dyspnoea Have started pt on Xarelto (Lovenox D/Yifan) Pt to be moved out of CCU Rec Sub ac rehab followed by elective DC cardioversion Objective - Vital Signs/Intake and Output Vital Signs (last 24 hours): Temp Pulse Resp BP Pulse Ox 98.5 F 60 26 H 123/59 L 98 08/05/16 07:38 08/05/16 07:38 08/05/16 07:38 08/05/16 07:38 08/05/16 07:38 Intake and Output: 08/05/16 08/05/16 06:59 18:59 Intake Total 550 Output Total 300 Balance 250 - Medications Medications: Current Medications Acetaminophen (Tylenol 325mg Tab) 650 mg PO Q6 PRN PRN Reason: Headache Albuterol/Ipratropium (Duoneb 3 Mg/0.5 Mg (3 Ml) Ud) 3 ml INH RQ6 [facility] Last Admin: 08/05/16 00:59 Dose: 3 ml Atorvastatin Calcium (Lipitor) 10 mg PO DAILY [facility] Last Admin: 08/04/16 08:39 Dose: 10 mg Carvedilol (Coreg) 3.125 mg PO Q12 [facility] Last Admin: 08/04/16 20:16 Dose: 3.125 mg Furosemide (Lasix) 20 mg IVP ONCE ONE Stop: 08/05/16 08:20 Guaifenesin/Dextromethorphan (Mucinex-Dm 600-30 Mg) 1 tab PO BID [facility] Last Admin: 08/04/16 16:45 Dose: 1 tab Vancomycin HCl 1 gm/ Sodium (Chloride) 250 mls @ 166.667 mls/hr IVPB Q12 [facility] Last Admin: 08/04/16 20:13 Dose: 166.667 mls/hr Piperacillin Sod/Tazobactam (Sod 3.375 gm/ Sodium Chloride) 100 mls @ 100 mls/ hr IVPB Q6H [facility] Last Admin: 08/05/16 03:45 Dose: 100 mls/hr Potassium Chloride (K-Dur 20 Meq Er Tab) 20 meq PO DAILY [facility] Last Admin: 08/04/16 08:36 Dose: Not Given Risperidone (Risperdal Tab) 0.25 mg PO HS [facility] Last Admin: 08/04/16 21:00 Dose: 0.25 mg Rivaroxaban (Xarelto) 20 mg PO QD5 [facility] PRN Reason: Protocol - Labs Labs: 08/05/16 04:15 08/05/16 04:15 PT 15.1 Seconds (9.8-13.1) H 07/30/16 19:10 INR 1.3 (0.9-1.2) H 07/30/16 19:10 APTT 26.5 Seconds (25.6-37.1) 07/30/16 19:10
[2016-08-05] MEDS: Potassium Chloride 20 mEq ER Tab PO SCH (09:09)
[2016-08-05] MEDS: guaiFENesin-DM 600-30 mg ER Tab PO SCH ×2 (09:09→16:01)
--- NOTE | 2016-08-05 14:04 | PN ---
DATE: 08/05/2016 REASON FOR FOLLOWUP: 1. Atrial fibrillation. 2. Hypertrophic cardiomyopathy. 3. Status post AICD. The patient was seen in EP follow up this morning, has no new complaints. Does complain of mild shor tness of breath. She was seen in cardiology followup by Dr. Rodriguez. Heart rates appear controlled. Amiodarone has been discontinued. RELEVANT LABORATORY WORK: On review, patient has a white count of 11.1, H and H of 11.1 and 34.7, pl atelets of 311. Potassium 4.0, BUN and creatinine of 16 and 0.9. PHYSICAL EXAMINATION: VITAL SIGNS: The patient's temperature is 98.2, pulse is 60, blood pressure is 116/54, respiratory r ate of 25. GENERAL: She is an elderly, female, in no acute distress, able to speak in complete senten tito. HEENT: Head is normocephalic, atraumatic. There is no brittney facial asymmetry. She does complain of mild hoarseness post GLORY. NECK: Supple, no jugular venous distention, no carotid bruits. CHEST: Notable for bibasilar crackles. ABDOMEN: Soft, obese, nontender, nondistended. Positive bowel sounds. EXTREMITIES: No cyanosis, clubbing or edema. ASSESSMENT AND PLAN: 1. Atrial fibrillation. She is status post transesophageal echocardiogram, which did show evidence of a clearly defined thrombus within the left atrial appendage. Therefore, cardioversion was deferre d at this time. The patient is continued on anticoagulation and should be on anticoagulation from he re on out unless it is demonstrated that the risk/benefit ratio is unfavorable. The plan at this poi nt, as previously discussed, would be continued anticoagulation for a period of 3 days and for her to return for an elective cardioversion at that time and reinitiation of antiarrhythmic therapy in the form of amiodarone. 2. Hypertrophic obstructive cardiomyopathy. The patient's hemodynamics hopefully will improve once sinus rhythm is restored, which hopefully will happen in a period of 1 month. The patient, I believe , is to be transferred to rehabilitation. It is unclear whether she will remain in rehab or go home prior to bringing her back for elective cardioversion. 3. Status post normal functioning Berto automatic implantable cardioverter-defibrillator. 4. Pneumonia, for which the patient is continuing to receive therapy. Thank you for allowing me to participate in the care of your patient. Please do not hesitate to call if you have any questions in regards to her care. João Wiseman MD cc: [phone] TT: 08/05/2016 14:03:48 Confirmation # [id number] Dictation # [id number]
--- NOTE | 2016-08-05 16:56 | CP.CCUPN ---
CCU Subjective - Physician Review Events Since Last Encounter (Free Text): 08/05/16 17:39 The Patient was seen and examined at the bedside, Medical records reviewed, all clinical/lab/hemodynamic/radiographic data were reviewed and management issues were discussed and formulated, Last 24H Events reviewed Comfortable, in A-Fib with controlled HR Afebrile Sitting comfortable in chair Patient is stable for med-surg transfer 08/05/16 17:44 CCU Objective - Vital Signs / Intake & Output Vital Signs (Last 4 hours): Vital Signs Temp Pulse Resp BP Pulse Ox 08/05/16 16:00 98.0 F 60 15 144/74 100 08/05/16 15:04 94 L 08/05/16 14:00 60 29 H 140/68 100 Intake and Output (Last 8hrs): Intake & Output 08/05/16 08/05/16 08/05/16 06:59 14:59 22:59 Intake Total 150 Output Total 300 Balance -150 Intake: Intake, Piggyback 100 Oral 50 Output: Urine 300 Urine, Voided 300 Other: # Bowel Movements 1 - Physical Exam Head: Positive for: Normocephalic Pupils: Positive for: PERRL Extroacular Muscles: Positive for: EOMI Conjunctiva: Positive for: Normal Ears: Positive for: Normal Mouth: Positive for: Moist Mucous Membranes Pharnyx: Positive for: Normal Neck: Positive for: Normal Range of Motion. Negative for: JVD Respiratory/Chest: Positive for: Good Air Exchange. Negative for: Wheezes, Decreased Breath Sounds (@ bases bilaterally), Rhonchi Abdomen: Positive for: Normal Bowel Sounds. Negative for: Tenderness, Distention Upper Extremity: Positive for: Normal Inspection Lower Extremity: Positive for: Edema (+1 pitting edema), NORMAL PULSES. Negative for: CALF TENDERNESS, Cyanosis Neurological: Positive for: GCS=15, CN II-XII Intact, Motor Func Grossly Intact Skin: Positive for: Warm. Negative for: Rashes Psychiatric: Positive for: Alert, Oriented x 3, Normal Mood - Medications Active Medications: Active Medications Generic Name Dose Route Start Last Admin Trade Name Freq PRN Reason Stop Dose Admin Acetaminophen 650 mg 08/02/16 20:15 Tylenol 325mg Tab PO Q6 PRN Headache Albuterol/Ipratropium 3 ml 08/03/16 02:00 08/05/16 13:21 Duoneb 3 Mg/0.5 Mg (3 Ml) Ud INH 3 ml RQ6 [facility] Administration Atorvastatin Calcium 10 mg 08/03/16 09:00 08/05/16 09:09 Lipitor PO 10 mg DAILY [facility] Administration Carvedilol 3.125 mg 08/03/16 14:11 08/05/16 09:08 Coreg PO 3.125 mg Q12 [facility] Administration Guaifenesin/Dextromethorphan 1 tab 08/03/16 09:00 08/05/16 16:01 Mucinex-Dm 600-30 Mg PO 1 tab BID [facility] Administration Vancomycin HCl 1 gm/ Sodium 250 mls @ 166.667 mls/hr 08/03/16 09:00 08/05/16 10:00 Chloride IVPB 166.667 mls/hr Q12 [facility] Administration Piperacillin Sod/Tazobactam 100 mls @ 100 mls/hr 08/03/16 03:00 08/05/16 15: 56 Sod 3.375 gm/ Sodium Chloride IVPB 100 mls/hr Q6H [facility] Administration Potassium Chloride 20 meq 08/03/16 09:00 08/05/16 09:09 K-Dur 20 Meq Er Tab PO 20 meq DAILY [facility] Administration Risperidone 0.25 mg 08/02/16 22:00 08/04/16 21:00 Risperdal Tab PO 0.25 mg HS [facility] Administration Rivaroxaban 15 mg 08/05/16 17:00 08/05/16 16:01 Xarelto PO 15 mg QD5 [facility] Administration Protocol - Patient Studies Lab Studies: Lab Studies 08/05/16 08/05/16 08/05/16 Range/Units 04:15 04:15 04:15 WBC 11.1 H (4.8-10.8) K/uL RBC 3.71 L (3.80-5.20) Mil/uL Hgb 11.1 L (12.0-16.0) g/dL Hct 34.7 (34.0-47.0) % MCV 93.3 (81.0-99.0) fl MCH 30.0 (27.0-31.0) pg MCHC 32.1 L (33.0-37.0) g/dL RDW 13.8 (11.5-14.5) % Plt Count 311 (130-400) K/uL MPV 8.0 (7.2-11.7) fl Neut % (Auto) 78.0 H (50.0-75.0) % Lymph % (Auto) 11.9 L (20.0-40.0) % [place] % (Auto) 7.5 (0.0-10.0) % Eos % (Auto) 2.1 (0.0-4.0) % Baso % (Auto) 0.5 (0.0-2.0) % Neut # 8.7 H (1.8-7.0) K/uL Lymph # 1.3 (1.0-4.3) K/uL [place] # 0.8 (0.0-0.8) K/uL Eos # 0.2 (0.0-0.7) K/uL Baso # 0.1 (0.0-0.2) K/uL Sodium 143 (132-148) mmol/l Potassium 4.0 (3.6-5.0) MMOL/L Chloride 109 H (98-107) mmol/L Carbon Dioxide 22 (22-30) mmol/L Anion Gap 16 (10-20) BUN 16 (7-17) mg/dl Creatinine 0.9 (0.7-1.2) mg/dL Est GFR ( Amer) > 60 Est GFR (Non-Af Amer) 60 Random Glucose 81 (65-105) mg/dL Calcium 8.1 L (8.4-10.2) mg/dL Random Vancomycin 16.2 ug/mL Laboratory Results - last 24 hr 08/05/16 08/05/16 08/05/16 04:15 04:15 04:15 WBC 11.1 H RBC 3.71 L Hgb 11.1 L Hct 34.7 MCV 93.3 MCH 30.0 MCHC 32.1 L RDW 13.8 Plt Count 311 MPV 8.0 Neut % (Auto) 78.0 H Lymph % (Auto) 11.9 L [place] % (Auto) 7.5 Eos % (Auto) 2.1 Baso % (Auto) 0.5 Neut # 8.7 H Lymph # 1.3 [place] # 0.8 Eos # 0.2 Baso # 0.1 Sodium 143 Potassium 4.0 Chloride 109 H Carbon Dioxide 22 Anion Gap 16 BUN 16 Creatinine 0.9 Est GFR ( Amer) > 60 Est GFR (Non-Af Amer) 60 Random Glucose 81 Calcium 8.1 L Random Vancomycin 16.2 Critical Care Progress Note - Nutrition Nutrition: Nutrition Category Date Time Status Heart Healthy Diet [DIET] Diets 08/02/16 Dinner Active Assessment/Plan (1) Atrial fibrillation with slow ventricular response Current Visit: Yes Status: Acute (2) Acute systolic CHF (congestive heart failure) Current Visit: Yes Status: Acute (3) Hypertrophic cardiomyopathy Current Visit: Yes Status: Acute (4) Pneumonia, community acquired Current Visit: Yes Status: Acute (5) Pneumonia Current Visit: No Status: Acute - Assessment and Plan (Free Text) Assessment: - Continue current medications, reviewed - started on Xarelto - HR control with Coreg - IV Vanco and Piperacillin Sod/Tazobactam - Pulmonary toilets - Albuterol/Ipratropium INH RQID
--- NOTE | 2016-08-05 17:31 | CP.PCM.PN ---
Subjective - Date & Time of Evaluation Date of Evaluation: 08/05/16 Time of Evaluation: 17:30 - Subjective Subjective: ID NOTE PATIENT IMPROVED FROM YESTERDAY WBC IS 11.1 GFR:60 CREATININE:0.9 LUNGS:RALES AT BASES CXR:BILATERAL LOWER LOBE ALVEOLAR INFILTRATES Objective - Vital Signs/Intake and Output Vital Signs (last 24 hours): Temp Pulse Resp BP Pulse Ox 98.0 F 60 15 144/74 100 08/05/16 16:00 08/05/16 16:00 08/05/16 16:00 08/05/16 16:00 08/05/16 16:00 Intake and Output: 08/05/16 08/05/16 06:59 18:59 Intake Total 550 Output Total 300 Balance 250 - Medications Medications: Current Medications Acetaminophen (Tylenol 325mg Tab) 650 mg PO Q6 PRN PRN Reason: Headache Albuterol/Ipratropium (Duoneb 3 Mg/0.5 Mg (3 Ml) Ud) 3 ml INH RQ6 [facility] Last Admin: 08/05/16 13:21 Dose: 3 ml Atorvastatin Calcium (Lipitor) 10 mg PO DAILY [facility] Last Admin: 08/05/16 09:09 Dose: 10 mg Carvedilol (Coreg) 3.125 mg PO Q12 [facility] Last Admin: 08/05/16 09:08 Dose: 3.125 mg Guaifenesin/Dextromethorphan (Mucinex-Dm 600-30 Mg) 1 tab PO BID [facility] Last Admin: 08/05/16 16:01 Dose: 1 tab Vancomycin HCl 1 gm/ Sodium (Chloride) 250 mls @ 166.667 mls/hr IVPB Q12 [facility] Last Admin: 08/05/16 10:00 Dose: 166.667 mls/hr Piperacillin Sod/Tazobactam (Sod 3.375 gm/ Sodium Chloride) 100 mls @ 100 mls/ hr IVPB Q6H [facility] Last Admin: 08/05/16 15:56 Dose: 100 mls/hr Potassium Chloride (K-Dur 20 Meq Er Tab) 20 meq PO DAILY [facility] Last Admin: 08/05/16 09:09 Dose: 20 meq Risperidone (Risperdal Tab) 0.25 mg PO HS [facility] Last Admin: 08/04/16 21:00 Dose: 0.25 mg Rivaroxaban (Xarelto) 15 mg PO QD5 [facility] PRN Reason: Protocol Last Admin: 08/05/16 16:01 Dose: 15 mg - Labs Labs: 08/05/16 04:15 08/05/16 04:15 PT 15.1 Seconds (9.8-13.1) H 07/30/16 19:10 INR 1.3 (0.9-1.2) H 07/30/16 19:10 APTT 26.5 Seconds (25.6-37.1) 07/30/16 19:10
[2016-08-06] MEDS: Albuterol-Ipratrop 3 mg / 0.5 (3 ml) UD INH SCH ×4 (01:07→19:50)
[2016-08-06] MEDS: Piperacillin/Tazobact 3.375 GM in Sodium Chloride 0.9% 100 ML IVPB SCH ×4 (03:50→21:14)
[2016-08-06 05:21] LABS: BASO # 0.1 K/uL (0.0-0.2); BASO % 0.6 % (0.0-2.0); EOS # 0.3 K/uL (0.0-0.7); EOS % 2.6 % (0.0-4.0); HEMOGLOBIN 11.4 g/dL (12.0-16.0); LYMPH # 1.2 K/uL (1.0-4.3); LYMPH % 12.2 % (20.0-40.0); MEAN CELL VOLUME 93.2 fl (81.0-99.0); MEAN CORPUSCULAR HEMOGLOBIN 30.1 pg (27.0-31.0); MEAN CORPUSCULAR HGB CONC 32.3 g/dL (33.0-37.0); MEAN PLATELET VOLUME 7.9 fl (7.2-11.7); MONO # 0.7 K/uL (0.0-0.8); MONO % 6.7 % (0.0-10.0); NEUT # 7.8 K/uL (1.8-7.0); NEUT % 77.9 % (50.0-75.0); NRBC % 0.1 % (0.0-0.0); RBC 3.78 Mil/uL (3.80-5.20); RED CELL DISTRIBUTION WIDTH 14.2 % (11.5-14.5)
[2016-08-06 05:27] LABS: BLOOD UREA NITROGEN 15 mg/dl (7-17); CALCIUM 8.5 mg/dL (8.4-10.2); GFR AFRICAN-AMERICAN > 60; GFR NON-AFRICAN AMERICAN 60
--- NOTE | 2016-08-06 06:51 | CP.PCM.PN ---
<Sammy Ontiveros - Last Filed: 08/06/16 11:19> Subjective - Date & Time of Evaluation Date of Evaluation: 08/06/16 Time of Evaluation: 07:00 - Subjective Subjective: No acute events overnight. Patient seen and examined with Dr. Gooden. Alert and awake, endorses she feels better however continues to cough, mildy short of breath, using O2 via NC with O2 Sat of 98, 95% on RA. Has been out of bed to chair. She is tolerating her regular diet. Requesting PT evaluation today, appreciate input. Patient stable for transfer to Med/Surg. Seen by cardiology this AM. Objective - Vital Signs/Intake and Output Vital Signs (last 24 hours): Temp Pulse Resp BP Pulse Ox 98 F 60 18 140/60 99 08/06/16 03:50 08/06/16 04:59 08/06/16 04:59 08/06/16 04:59 08/06/16 04:59 Intake and Output: 08/05/16 08/06/16 18:59 06:59 Intake Total 550 Output Total 400 Balance 150 - Medications Medications: Current Medications Acetaminophen (Tylenol 325mg Tab) 650 mg PO Q6 PRN PRN Reason: Headache Albuterol/Ipratropium (Duoneb 3 Mg/0.5 Mg (3 Ml) Ud) 3 ml INH RQ6 [facility] Last Admin: 08/06/16 01:07 Dose: 3 ml Atorvastatin Calcium (Lipitor) 10 mg PO DAILY [facility] Last Admin: 08/05/16 09:09 Dose: 10 mg Carvedilol (Coreg) 3.125 mg PO Q12 [facility] Last Admin: 08/05/16 20:53 Dose: 3.125 mg Guaifenesin/Dextromethorphan (Mucinex-Dm 600-30 Mg) 1 tab PO BID [facility] Last Admin: 08/05/16 16:01 Dose: 1 tab Vancomycin HCl 1 gm/ Sodium (Chloride) 250 mls @ 166.667 mls/hr IVPB Q12 [facility] Last Admin: 08/05/16 10:00 Dose: 166.667 mls/hr Piperacillin Sod/Tazobactam (Sod 3.375 gm/ Sodium Chloride) 100 mls @ 100 mls/ hr IVPB Q6H [facility] Last Admin: 08/06/16 03:50 Dose: 100 mls/hr Potassium Chloride (K-Dur 20 Meq Er Tab) 20 meq PO DAILY [facility] Last Admin: 08/05/16 09:09 Dose: 20 meq Risperidone (Risperdal Tab) 0.25 mg PO HS [facility] Last Admin: 08/05/16 21:03 Dose: 0.25 mg Rivaroxaban (Xarelto) 15 mg PO QD5 [facility] PRN Reason: Protocol Last Admin: 08/05/16 16:01 Dose: 15 mg - Labs Labs: 08/06/16 04:30 08/06/16 04:30 PT 15.1 Seconds (9.8-13.1) H 07/30/16 19:10 INR 1.3 (0.9-1.2) H 07/30/16 19:10 APTT 26.5 Seconds (25.6-37.1) 07/30/16 19:10 - Constitutional Appears: Non-toxic - Head Exam Head Exam: NORMAL INSPECTION - Eye Exam Eye Exam: Normal appearance - Respiratory Exam Respiratory Exam: Rales (bilaterally), Wheezes (mild expiratory) Additional comments: mildly dyspneic - Cardiovascular Exam Cardiovascular Exam: REGULAR RHYTHM, +S1, +S2. absent: Bradycardia, Tachycardia - GI/Abdominal Exam GI & Abdominal Exam: Soft. absent: Distended, Tenderness - Extremities Exam Extremities Exam: absent: Calf Tenderness, Pedal Edema - Neurological Exam Neurological Exam: Alert, Awake, CN II-XII Intact - Psychiatric Exam Psychiatric exam: Flat Affect - Skin Skin Exam: Dry, Intact, Pallor Assessment and Plan - Assessment and Plan (Free Text) Assessment: 85 year old female admitted for CAP, with acute decompenstation likely secondary to CHF and subsequent transfer to ICU. Patient has thrombus in left atrial appendage subsequently started on Xarelto. . Pneumonia . History of atrial fibrillation and IHSS . CHF (congestive heart failure) . Bacterial conjunctivitis of right eye . DVT prophylaxis . Hypertension . Biplolar disorder . Pneumonia -CXR reviewed: acute respiratory insufficiency, right upper lobe and left mid lung hazy opacity, patient started on Vancomycin 1g BID, and Zosyn 3.3375 q6 - ID consult recommendations appreciated - Incentive Spirometry - duonebs q6 -O2 as needed . History of atrial fibrillation and IHSS -currently in afib, thrombus in left atrial appendage, on Xarelto -as per Dr. Turner recommendation s/p GLORY: elective cardioversion after 1 month of anticoagulation. -lovenox 70mg q 12 discontinued . CHF (congestive heart failure) Echo (11/23/2014) showing abnormal relaxation pattern as well as decrease in EF (45-50%). - Coreg 3.125mg BID/ Lasix 20mg as per cardiology - Potassium 20meq daily/simvastatin 20meq qhs . Bacterial conjunctivitis of right eye -resolved s/p 5 day course of cipro . DVT prophylaxis -xarelto. . Hypertension Assessment and Plan: Chronic, stable. - coreg/lasix , as per cardio, monitor BP . Biplolar disorder -risperdal 0.25 qhs <Asim Gooden - Last Filed: 08/08/16 06:59> Objective - Vital Signs/Intake and Output Vital Signs (last 24 hours): Temp Pulse Resp BP Pulse Ox 98.7 F 60 22 162/74 H 95 08/07/16 20:00 08/07/16 21:47 08/07/16 20:00 08/07/16 21:47 08/07/16 20:00 Intake and Output: 08/07/16 08/08/16 18:59 06:59 Intake Total 250 Output Total 1500 Balance -1250 - Medications Medications: Current Medications Acetaminophen (Tylenol 325mg Tab) 650 mg PO Q6 PRN PRN Reason: Headache Albuterol/Ipratropium (Duoneb 3 Mg/0.5 Mg (3 Ml) Ud) 3 ml INH RQ6 [facility] Last Admin: 08/08/16 01:00 Dose: 3 ml Atorvastatin Calcium (Lipitor) 10 mg PO DAILY [facility] Last Admin: 08/07/16 08:45 Dose: 10 mg Carvedilol (Coreg) 3.125 mg PO Q12 [facility] Last Admin: 08/07/16 21:47 Dose: 3.125 mg Guaifenesin/Dextromethorphan (Mucinex-Dm 600-30 Mg) 1 tab PO BID [facility] Last Admin: 08/07/16 16:14 Dose: 1 tab Piperacillin Sod/Tazobactam (Sod 3.375 gm/ Sodium Chloride) 100 mls @ 100 mls/ hr IVPB Q6H [facility] Last Admin: 08/08/16 02:35 Dose: 100 mls/hr Clindamycin Phosphate 600 mg/ (Sodium Chloride) 104 mls @ 104 mls/hr IVPB Q8 [facility] Last Admin: 08/08/16 02:35 Dose: 104 mls/hr Potassium Chloride (K-Dur 20 Meq Er Tab) 20 meq PO DAILY [facility] Last Admin: 08/07/16 08:45 Dose: 20 meq Risperidone (Risperdal Tab) 0.25 mg PO HS [facility] Last Admin: 08/07/16 21:47 Dose: 0.25 mg Rivaroxaban (Xarelto) 15 mg PO QD5 [facility] PRN Reason: Protocol Last Admin: 08/07/16 16:13 Dose: 15 mg - Labs Labs: 08/06/16 04:30 08/06/16 04:30 PT 15.1 Seconds (9.8-13.1) H 07/30/16 19:10 INR 1.3 (0.9-1.2) H 07/30/16 19:10 APTT 26.5 Seconds (25.6-37.1) 07/30/16 19:10 Attending/Attestation - Attestation I have personally seen and examined this patient.: Yes I have fully participated in the care of the patient.: Yes I have reviewed all pertinent clinical information, including history, physical exam and plan: Yes
[2016-08-06] MEDS: guaiFENesin-DM 600-30 mg ER Tab PO SCH ×2 (08:38→16:12)
[2016-08-06] MEDS: Potassium Chloride 20 mEq ER Tab PO SCH (08:38)
--- NOTE | 2016-08-06 09:01 | CP.PCM.PN ---
Subjective - Date & Time of Evaluation Date of Evaluation: 08/06/16 Time of Evaluation: 08:40 - Subjective Subjective: Sitting OOB has a recurring nonproductive cough A Fib with VVI paced rhythm at 60 BPM BP 150/70 mm Hg Pulse Ox on O2 supplement 99 % (On RA 95%) Bibasal crepitations + Ejection syst murmur of IHSS+ Labs show normal BUN/Creat, K + normal Awaits transfer out of CCU A dose of lasix today On Xarelto Objective - Vital Signs/Intake and Output Vital Signs (last 24 hours): Temp Pulse Resp BP Pulse Ox 98.1 F 60 21 152/70 H 98 08/06/16 08:34 08/06/16 08:37 08/06/16 08:34 08/06/16 08:37 08/06/16 08:34 Intake and Output: 08/06/16 08/06/16 06:59 18:59 Intake Total 550 Output Total 400 Balance 150 - Medications Medications: Current Medications Acetaminophen (Tylenol 325mg Tab) 650 mg PO Q6 PRN PRN Reason: Headache Albuterol/Ipratropium (Duoneb 3 Mg/0.5 Mg (3 Ml) Ud) 3 ml INH RQ6 [facility] Last Admin: 08/06/16 07:47 Dose: 3 ml Atorvastatin Calcium (Lipitor) 10 mg PO DAILY [facility] Last Admin: 08/06/16 08:38 Dose: 10 mg Carvedilol (Coreg) 3.125 mg PO Q12 [facility] Last Admin: 08/06/16 08:37 Dose: 3.125 mg Furosemide (Lasix) 20 mg IVP ONCE ONE Stop: 08/06/16 08:57 Guaifenesin/Dextromethorphan (Mucinex-Dm 600-30 Mg) 1 tab PO BID [facility] Last Admin: 08/06/16 08:38 Dose: 1 tab Vancomycin HCl 1 gm/ Sodium (Chloride) 250 mls @ 166.667 mls/hr IVPB Q12 [facility] Last Admin: 08/05/16 10:00 Dose: 166.667 mls/hr Piperacillin Sod/Tazobactam (Sod 3.375 gm/ Sodium Chloride) 100 mls @ 100 mls/ hr IVPB Q6H [facility] Last Admin: 08/06/16 08:38 Dose: 100 mls/hr Potassium Chloride (K-Dur 20 Meq Er Tab) 20 meq PO DAILY [facility] Last Admin: 08/06/16 08:38 Dose: 20 meq Risperidone (Risperdal Tab) 0.25 mg PO HS [facility] Last Admin: 08/05/16 21:03 Dose: 0.25 mg Rivaroxaban (Xarelto) 15 mg PO QD5 [facility] PRN Reason: Protocol Last Admin: 08/05/16 16:01 Dose: 15 mg - Labs Labs: 08/06/16 04:30 08/06/16 04:30 PT 15.1 Seconds (9.8-13.1) H 07/30/16 19:10 INR 1.3 (0.9-1.2) H 07/30/16 19:10 APTT 26.5 Seconds (25.6-37.1) 07/30/16 19:10
--- NOTE | 2016-08-06 16:26 | CP.CCUPN ---
CCU Subjective - Physician Review Events Since Last Encounter (Free Text): 08/06/16 16:30 The Patient was seen and examined at the bedside, Medical records reviewed, all clinical/lab/hemodynamic/radiographic data were reviewed and management issues were discussed and formulated, 85 Years old female with HTN, CAD S/p RCA stent, A-Fib s/p Ablation 2 years ago , IHSS, AICD and respiratory insufficiency from pneumonia and tracheobronchitis on I V Vanco and Piperacillin Sod/Tazobactam Last 24H Events reviewed Comfortable, in A-Fib with controlled HR OOB to chair, Sitting comfortable in chair Afebrile Tolerating Anticoagulation with Rivaroxaban Patient is stable for med-surg transfer 08/06/16 16:50 CCU Objective - Vital Signs / Intake & Output Vital Signs (Last 4 hours): Vital Signs Pulse Resp BP Pulse Ox 08/06/16 13:00 60 31 H 114/52 L 96 Intake and Output (Last 8hrs): Intake & Output 08/06/16 08/06/16 08/06/16 06:59 14:59 22:59 Intake Total 100 Output Total 400 Balance -300 Intake: Intake, Piggyback 100 Output: Urine 400 Urine, Voided 400 Other: # Voids Urine, Voided 1 # Bowel Movements 1 - Physical Exam Head: Positive for: Normocephalic Pupils: Positive for: PERRL Extroacular Muscles: Positive for: EOMI Conjunctiva: Positive for: Normal Ears: Positive for: Normal Mouth: Positive for: Moist Mucous Membranes Pharnyx: Positive for: Normal Neck: Positive for: Normal Range of Motion. Negative for: JVD Respiratory/Chest: Positive for: Good Air Exchange. Negative for: Wheezes, Decreased Breath Sounds (@ bases bilaterally), Rhonchi Abdomen: Positive for: Normal Bowel Sounds. Negative for: Tenderness, Distention Upper Extremity: Positive for: Normal Inspection Lower Extremity: Positive for: Edema (+1 pitting edema), NORMAL PULSES. Negative for: CALF TENDERNESS, Cyanosis Neurological: Positive for: GCS=15, CN II-XII Intact, Motor Func Grossly Intact Skin: Positive for: Warm. Negative for: Rashes Psychiatric: Positive for: Alert, Oriented x 3, Normal Mood - Medications Active Medications: Active Medications Generic Name Dose Route Start Last Admin Trade Name Freq PRN Reason Stop Dose Admin Acetaminophen 650 mg 08/02/16 20:15 Tylenol 325mg Tab PO Q6 PRN Headache Albuterol/Ipratropium 3 ml 08/03/16 02:00 08/06/16 13:45 Duoneb 3 Mg/0.5 Mg (3 Ml) Ud INH 3 ml RQ6 [facility] Administration Atorvastatin Calcium 10 mg 08/03/16 09:00 08/06/16 08:38 Lipitor PO 10 mg DAILY [facility] Administration Carvedilol 3.125 mg 08/03/16 14:11 08/06/16 08:37 Coreg PO 3.125 mg Q12 [facility] Administration Guaifenesin/Dextromethorphan 1 tab 08/03/16 09:00 08/06/16 16:12 Mucinex-Dm 600-30 Mg PO 1 tab BID [facility] Administration Vancomycin HCl 1 gm/ Sodium 250 mls @ 166.667 mls/hr 08/03/16 09:00 08/06/16 10:30 Chloride IVPB 166.667 mls/hr Q12 [facility] Administration Piperacillin Sod/Tazobactam 100 mls @ 100 mls/hr 08/03/16 03:00 08/06/16 14: 53 Sod 3.375 gm/ Sodium Chloride IVPB 100 mls/hr Q6H [facility] Administration Potassium Chloride 20 meq 08/03/16 09:00 08/06/16 08:38 K-Dur 20 Meq Er Tab PO 20 meq DAILY [facility] Administration Risperidone 0.25 mg 08/02/16 22:00 08/05/16 21:03 Risperdal Tab PO 0.25 mg HS [facility] Administration Rivaroxaban 15 mg 08/05/16 17:00 08/06/16 16:12 Xarelto PO 15 mg QD5 [facility] Administration Protocol - Patient Studies Lab Studies: Lab Studies 08/06/16 08/06/16 08/05/16 Range/Units 04:30 04:30 18:57 WBC 10.0 (4.8-10.8) K/uL RBC 3.78 L (3.80-5.20) Mil/uL Hgb 11.4 L (12.0-16.0) g/dL Hct 35.2 (34.0-47.0) % MCV 93.2 (81.0-99.0) fl MCH 30.1 (27.0-31.0) pg MCHC 32.3 L (33.0-37.0) g/dL RDW 14.2 (11.5-14.5) % Plt Count 324 (130-400) K/uL MPV 7.9 (7.2-11.7) fl Neut % (Auto) 77.9 H (50.0-75.0) % Lymph % (Auto) 12.2 L (20.0-40.0) % Logan % (Auto) 6.7 (0.0-10.0) % Eos % (Auto) 2.6 (0.0-4.0) % Baso % (Auto) 0.6 (0.0-2.0) % Neut # 7.8 H (1.8-7.0) K/uL Lymph # 1.2 (1.0-4.3) K/uL Logan # 0.7 (0.0-0.8) K/uL Eos # 0.3 (0.0-0.7) K/uL Baso # 0.1 (0.0-0.2) K/uL Sodium 142 (132-148) mmol/l Potassium 4.4 (3.6-5.0) MMOL/L Chloride 110 H (98-107) mmol/L Carbon Dioxide 25 (22-30) mmol/L Anion Gap 11 (10-20) BUN 15 (7-17) mg/dl Creatinine 0.9 (0.7-1.2) mg/dL Est GFR ( Amer) > 60 Est GFR (Non-Af Amer) 60 Random Glucose 85 (65-105) mg/dL Calcium 8.5 (8.4-10.2) mg/dL Vancomycin Trough 18.1 H (5.0-10.0) ug/mL Laboratory Results - last 24 hr 08/05/16 08/06/16 08/06/16 18:57 04:30 04:30 WBC 10.0 RBC 3.78 L Hgb 11.4 L Hct 35.2 MCV 93.2 MCH 30.1 MCHC 32.3 L RDW 14.2 Plt Count 324 MPV 7.9 Neut % (Auto) 77.9 H Lymph % (Auto) 12.2 L Logan % (Auto) 6.7 Eos % (Auto) 2.6 Baso % (Auto) 0.6 Neut # 7.8 H Lymph # 1.2 Logan # 0.7 Eos # 0.3 Baso # 0.1 Sodium 142 Potassium 4.4 Chloride 110 H Carbon Dioxide 25 Anion Gap 11 BUN 15 Creatinine 0.9 Est GFR ( Amer) > 60 Est GFR (Non-Af Amer) 60 Random Glucose 85 Calcium 8.5 Vancomycin Trough 18.1 H Review of Systems - Cardiovascular Cardiovascular: absent: As Per HPI, Acrocyanosis, Chest Pain, Chest Pain at Rest , Chest Pain with Activity, Claudication, Diaphoresis, Dyspnea, Dyspnea on Exertion, Edema, Irregular Heart Rhythm, Pain Radiating to Arm/Neck/Jaw, Leg Edema, Leg Ulcers, Lightheadedness, Orthopnea, Palpitations, Paroxysmal Nocturnal Dyspnea, Pedal Edema, Radiating Pain, Rapid Heart Rate, Slow Heart Rate, Syncope, Other, UNREMARKABLE - Respiratory Respiratory: absent: As Per HPI, Cough, Dyspnea, Hemoptysis, Dyspnea on Exertion , Wheezing, Snoring, Stridor, Pain on Inspiration, Chest Congestion, Excessive Mucous Production, Change in Mucous Color, Pain with Coughing, Other, UNREMARKABLE Critical Care Progress Note - Nutrition Nutrition: Nutrition Category Date Time Status Heart Healthy Diet [DIET] Diets 08/02/16 Dinner Active Assessment/Plan (1) Atrial fibrillation with slow ventricular response Current Visit: Yes Status: Acute (2) Acute systolic CHF (congestive heart failure) Current Visit: Yes Status: Acute (3) Hypertrophic cardiomyopathy Current Visit: Yes Status: Acute (4) Pneumonia, community acquired Current Visit: Yes Status: Acute (5) Pneumonia Current Visit: No Status: Acute - Assessment and Plan (Free Text) Assessment: 85 Years old female with HTN, CAD S/p RCA stent, A-Fib s/p Ablation 2 years ago , IHSS, AICD and respiratory insufficiency from pneumonia and tracheobronchitis on I V Vanco and Piperacillin Sod/Tazobactam - Continue current medications, reviewed - started on Xarelto - HR control with Coreg - IV Vanco and Piperacillin Sod/Tazobactam - Pulmonary toilets - Albuterol/Ipratropium INH RQID - Tolerating Anticoagulation with Rivaroxaban
[2016-08-07] MEDS: Albuterol-Ipratrop 3 mg / 0.5 (3 ml) UD INH SCH ×4 (01:10→19:17)
[2016-08-07] MEDS: Piperacillin/Tazobact 3.375 GM in Sodium Chloride 0.9% 100 ML IVPB SCH ×4 (02:58→21:49)
--- NOTE | 2016-08-07 08:19 | CP.PCM.PN ---
<Sammy Ontiveros - Last Filed: 08/07/16 15:41> Subjective - Date & Time of Evaluation Date of Evaluation: 08/07/16 Time of Evaluation: 07:00 - Subjective Subjective: No acute events overnight. Patient is sitting up right in bed, with + wet cough. Mildy dyspnea, and is wearing NC. She has not been out of bed and ambulating. She is tolerating PO diet. She is currently on IV antibiotics, Day 5. Awaiting further recommendations from ID. Patient has remained afebrile. HR 60, paced rhythm. Seen by PT. Patient is stable for TCU transfer. Objective - Vital Signs/Intake and Output Vital Signs (last 24 hours): Temp Pulse Resp BP Pulse Ox 97.8 F 60 15 172/75 H 100 08/07/16 07:44 08/07/16 07:44 08/07/16 07:44 08/07/16 07:44 08/07/16 07:44 - Medications Medications: Current Medications Acetaminophen (Tylenol 325mg Tab) 650 mg PO Q6 PRN PRN Reason: Headache Albuterol/Ipratropium (Duoneb 3 Mg/0.5 Mg (3 Ml) Ud) 3 ml INH RQ6 [facility] Last Admin: 08/07/16 07:30 Dose: 3 ml Atorvastatin Calcium (Lipitor) 10 mg PO DAILY [facility] Last Admin: 08/06/16 08:38 Dose: 10 mg Carvedilol (Coreg) 3.125 mg PO Q12 [facility] Last Admin: 08/06/16 21:15 Dose: 3.125 mg Guaifenesin/Dextromethorphan (Mucinex-Dm 600-30 Mg) 1 tab PO BID [facility] Last Admin: 08/06/16 16:12 Dose: 1 tab Vancomycin HCl 1 gm/ Sodium (Chloride) 250 mls @ 166.667 mls/hr IVPB Q12 [facility] Last Admin: 08/06/16 21:14 Dose: 166.667 mls/hr Piperacillin Sod/Tazobactam (Sod 3.375 gm/ Sodium Chloride) 100 mls @ 100 mls/ hr IVPB Q6H [facility] Last Admin: 08/07/16 02:58 Dose: 100 mls/hr Potassium Chloride (K-Dur 20 Meq Er Tab) 20 meq PO DAILY [facility] Last Admin: 08/06/16 08:38 Dose: 20 meq Risperidone (Risperdal Tab) 0.25 mg PO HS [facility] Last Admin: 08/06/16 21:15 Dose: 0.25 mg Rivaroxaban (Xarelto) 15 mg PO QD5 [facility] PRN Reason: Protocol Last Admin: 08/06/16 16:12 Dose: 15 mg - Labs Labs: 08/06/16 04:30 08/06/16 04:30 PT 15.1 Seconds (9.8-13.1) H 07/30/16 19:10 INR 1.3 (0.9-1.2) H 07/30/16 19:10 APTT 26.5 Seconds (25.6-37.1) 07/30/16 19:10 - Constitutional Appears: No Acute Distress (however mildy dyspneic, appears ill) - Eye Exam Eye Exam: Normal appearance Pupil Exam: NORMAL ACCOMODATION - ENT Exam ENT Exam: Mucous Membranes Moist - Respiratory Exam Respiratory Exam: Accessory Muscle Use (mild suprasternal retractions), Rales. absent: Wheezes Additional comments: mildy dyspnic - Cardiovascular Exam Cardiovascular Exam: +S1, +S2. absent: Bradycardia, Tachycardia Additional comments: paced rhythym - GI/Abdominal Exam GI & Abdominal Exam: Soft. absent: Distended, Tenderness - Rectal Exam Rectal Exam: Deferred - Neurological Exam Neurological Exam: Alert, Awake, CN II-XII Intact - Psychiatric Exam Psychiatric exam: Flat Affect - Skin Skin Exam: Dry, Intact, Pallor Assessment and Plan - Assessment and Plan (Free Text) Assessment: 85 year old female admitted for CAP, with acute decompenstation likely secondary to CHF and subsequent transfer to ICU. Patient has thrombus in left atrial appendage subsequently started on Xarelto. Currently on IV antibiotics for pneumonia. Patient stable for transfer out of ICU. . Pneumonia . History of atrial fibrillation and IHSS . CHF (congestive heart failure) . Bacterial conjunctivitis of right eye . DVT prophylaxis . Hypertension . Biplolar disorder . Pneumonia Day#5 Vancomycin 1g BID, and Zosyn 3.3375 q6 -f/u CXR and ID recommendations (Dr. Beaulieu) - Incentive Spirometry - duonebs q6 -O2 as needed . History of atrial fibrillation and IHSS -currently in afib, thrombus in left atrial appendage, on Xarelto -as per Dr. Turner recommendation s/p GLORY: elective cardioversion after 1 month of anticoagulation. -lovenox 70mg q 12 discontinued . CHF (congestive heart failure) - diastolic CHF Echo (11/23/2014) showing abnormal relaxation pattern as well as decrease in EF (45-50%). - Coreg 3.125mg BID/ Lasix 20mg as per cardiology - Potassium 20meq daily/simvastatin 20meq qhs . Bacterial conjunctivitis of right eye -resolved s/p 5 day course of cipro . DVT prophylaxis -xarelto. . Hypertension Assessment and Plan: Chronic, stable. - coreg/lasix , as per cardio, monitor BP . Biplolar disorder -risperdal 0.25 qhs <Rosas Pathak - Last Filed: 08/12/16 07:00> Objective - Vital Signs/Intake and Output Vital Signs (last 24 hours): Temp Pulse Resp BP Pulse Ox 97.8 F 60 72 H 156/68 H 94 L 08/08/16 07:42 08/08/16 10:26 08/08/16 07:43 08/08/16 10:36 08/08/16 10:26 - Labs Labs: 08/06/16 04:30 08/06/16 04:30 PT 15.1 Seconds (9.8-13.1) H 07/30/16 19:10 INR 1.3 (0.9-1.2) H 07/30/16 19:10 APTT 26.5 Seconds (25.6-37.1) 07/30/16 19:10 Attending/Attestation - Attestation I have personally seen and examined this patient.: Yes I have fully participated in the care of the patient.: Yes I have reviewed all pertinent clinical information, including history, physical exam and plan: Yes
[2016-08-07] MEDS: Potassium Chloride 20 mEq ER Tab PO SCH (08:45)
[2016-08-07] MEDS: guaiFENesin-DM 600-30 mg ER Tab PO SCH ×2 (08:45→16:14)
--- NOTE | 2016-08-07 09:15 | CP.PCM.PN ---
Subjective - Date & Time of Evaluation Date of Evaluation: 08/07/16 Time of Evaluation: 09:00 - Subjective Subjective: Still has a mild non productive cough No fever A Fib with VVI paced rhythm at 60 BPM BP 156/70 mm Hg Few basal rales + Syst murmur of IHSS present Pt awaits transfer out of ICU to a regular floor (Will need TCU/REID) Objective - Vital Signs/Intake and Output Vital Signs (last 24 hours): Temp Pulse Resp BP Pulse Ox 97.8 F 60 15 176/72 H 100 08/07/16 07:44 08/07/16 08:44 08/07/16 07:44 08/07/16 08:44 08/07/16 07:44 - Medications Medications: Current Medications Acetaminophen (Tylenol 325mg Tab) 650 mg PO Q6 PRN PRN Reason: Headache Albuterol/Ipratropium (Duoneb 3 Mg/0.5 Mg (3 Ml) Ud) 3 ml INH RQ6 [facility] Last Admin: 08/07/16 07:30 Dose: 3 ml Atorvastatin Calcium (Lipitor) 10 mg PO DAILY [facility] Last Admin: 08/07/16 08:45 Dose: 10 mg Carvedilol (Coreg) 3.125 mg PO Q12 [facility] Last Admin: 08/07/16 08:44 Dose: 3.125 mg Guaifenesin/Dextromethorphan (Mucinex-Dm 600-30 Mg) 1 tab PO BID [facility] Last Admin: 08/07/16 08:45 Dose: 1 tab Vancomycin HCl 1 gm/ Sodium (Chloride) 250 mls @ 166.667 mls/hr IVPB Q12 [facility] Last Admin: 08/07/16 08:45 Dose: 166.667 mls/hr Piperacillin Sod/Tazobactam (Sod 3.375 gm/ Sodium Chloride) 100 mls @ 100 mls/ hr IVPB Q6H [facility] Last Admin: 08/07/16 08:46 Dose: 100 mls/hr Potassium Chloride (K-Dur 20 Meq Er Tab) 20 meq PO DAILY [facility] Last Admin: 08/07/16 08:45 Dose: 20 meq Risperidone (Risperdal Tab) 0.25 mg PO HS [facility] Last Admin: 08/06/16 21:15 Dose: 0.25 mg Rivaroxaban (Xarelto) 15 mg PO QD5 [facility] PRN Reason: Protocol Last Admin: 08/06/16 16:12 Dose: 15 mg - Labs Labs: 08/06/16 04:30 08/06/16 04:30 PT 15.1 Seconds (9.8-13.1) H 07/30/16 19:10 INR 1.3 (0.9-1.2) H 07/30/16 19:10 APTT 26.5 Seconds (25.6-37.1) 07/30/16 19:10
--- NOTE | 2016-08-07 15:03 | CP.PCM.PN ---
Subjective - Date & Time of Evaluation Date of Evaluation: 08/07/16 Time of Evaluation: 15:03 - Subjective Subjective: I D NOTE HAVE ORDERED F/U CXR VANCOMYCIN TROUGH IS 18,AND HAVE DISCONTINUED ADDED CLINDAMYCN ,BUT WILL REVIEW PENDING CXR Objective - Vital Signs/Intake and Output Vital Signs (last 24 hours): Temp Pulse Resp BP Pulse Ox 97.7 F 60 13 130/54 L 96 08/07/16 11:55 08/07/16 11:55 08/07/16 11:55 08/07/16 11:55 08/07/16 11:55 - Medications Medications: Current Medications Acetaminophen (Tylenol 325mg Tab) 650 mg PO Q6 PRN PRN Reason: Headache Albuterol/Ipratropium (Duoneb 3 Mg/0.5 Mg (3 Ml) Ud) 3 ml INH RQ6 [facility] Last Admin: 08/07/16 14:01 Dose: 3 ml Atorvastatin Calcium (Lipitor) 10 mg PO DAILY [facility] Last Admin: 08/07/16 08:45 Dose: 10 mg Carvedilol (Coreg) 3.125 mg PO Q12 [facility] Last Admin: 08/07/16 08:44 Dose: 3.125 mg Guaifenesin/Dextromethorphan (Mucinex-Dm 600-30 Mg) 1 tab PO BID [facility] Last Admin: 08/07/16 08:45 Dose: 1 tab Piperacillin Sod/Tazobactam (Sod 3.375 gm/ Sodium Chloride) 100 mls @ 100 mls/ hr IVPB Q6H [facility] Last Admin: 08/07/16 08:46 Dose: 100 mls/hr Clindamycin Phosphate 600 mg/ (Sodium Chloride) 54 mls @ 54 mls/hr IVPB Q8 [facility] Potassium Chloride (K-Dur 20 Meq Er Tab) 20 meq PO DAILY [facility] Last Admin: 08/07/16 08:45 Dose: 20 meq Risperidone (Risperdal Tab) 0.25 mg PO HS [facility] Last Admin: 08/06/16 21:15 Dose: 0.25 mg Rivaroxaban (Xarelto) 15 mg PO QD5 [facility] PRN Reason: Protocol Last Admin: 08/06/16 16:12 Dose: 15 mg - Labs Labs: 08/06/16 04:30 08/06/16 04:30 PT 15.1 Seconds (9.8-13.1) H 07/30/16 19:10 INR 1.3 (0.9-1.2) H 07/30/16 19:10 APTT 26.5 Seconds (25.6-37.1) 07/30/16 19:10
--- NOTE | 2016-08-07 16:13 | RAD ---
HISTORY: bilateral aveolar pneumonia COMPARISON: 08/04/2016 FINDINGS: LUNGS: Pulmonary vascular congestion is re- suggested and similar to perhaps minimally decreased. No definitive consolidation at the right lung base is noted. Some patchy infiltrate at the left lung base is not excluded similar finding was previously reported. PLEURA: A left pleural effusion is suspect as before. No pneumothorax apparent. CARDIOVASCULAR: Cardiomegaly. Pacemaker an AICD device is in place as before OSSEOUS STRUCTURES: No significant abnormalities. VISUALIZED UPPER ABDOMEN: Normal. OTHER FINDINGS: None. IMPRESSION: Cardiomegaly -unchanged. Pulmonary vascular congestion slightly decreased. There is interval partial clearing or improved aeration at the right lung base. Similar left pleural effusion. Pacemaker AICD device as before Possible left retrocardiac infiltrate and/or coalescent pulmonary edema limited visualization here. Left pleural effusion similar-appearing
[2016-08-08] MEDS: Albuterol-Ipratrop 3 mg / 0.5 (3 ml) UD INH SCH ×2 (01:00→07:58)
[2016-08-08] MEDS: Piperacillin/Tazobact 3.375 GM in Sodium Chloride 0.9% 100 ML IVPB SCH ×2 (02:35→08:39)
[2016-08-08] MEDS: Clindamycin 600 MG in Sodium Chloride 0.9% 100 ML IVPB SCH ×2 (02:35→08:37)
--- NOTE | 2016-08-08 06:45 | CP.PCM.PN ---
<Sammy Ontiveros - Last Filed: 08/08/16 14:29> Subjective - Date & Time of Evaluation Date of Evaluation: 08/08/16 Time of Evaluation: 07:02 - Subjective Subjective: No acute events overnight. Patient is sitting up right in bed, cough persists but is improving, no longer dyspneic, or requiring O2. She is tolerating PO diet. She is currently on IV antibiotics, Day 6, ID is following. She is doing physical therapy. Patient is stable for TCU transfer. Objective - Vital Signs/Intake and Output Vital Signs (last 24 hours): Temp Pulse Resp BP Pulse Ox 98.7 F 60 22 162/74 H 95 08/07/16 20:00 08/07/16 21:47 08/07/16 20:00 08/07/16 21:47 08/07/16 20:00 Intake and Output: 08/07/16 08/08/16 18:59 06:59 Intake Total 250 Output Total 1500 Balance -1250 - Medications Medications: Current Medications Acetaminophen (Tylenol 325mg Tab) 650 mg PO Q6 PRN PRN Reason: Headache Albuterol/Ipratropium (Duoneb 3 Mg/0.5 Mg (3 Ml) Ud) 3 ml INH RQ6 [facility] Last Admin: 08/08/16 01:00 Dose: 3 ml Atorvastatin Calcium (Lipitor) 10 mg PO DAILY [facility] Last Admin: 08/07/16 08:45 Dose: 10 mg Carvedilol (Coreg) 3.125 mg PO Q12 [facility] Last Admin: 08/07/16 21:47 Dose: 3.125 mg Guaifenesin/Dextromethorphan (Mucinex-Dm 600-30 Mg) 1 tab PO BID [facility] Last Admin: 08/07/16 16:14 Dose: 1 tab Piperacillin Sod/Tazobactam (Sod 3.375 gm/ Sodium Chloride) 100 mls @ 100 mls/ hr IVPB Q6H [facility] Last Admin: 08/08/16 02:35 Dose: 100 mls/hr Clindamycin Phosphate 600 mg/ (Sodium Chloride) 104 mls @ 104 mls/hr IVPB Q8 [facility] Last Admin: 08/08/16 02:35 Dose: 104 mls/hr Potassium Chloride (K-Dur 20 Meq Er Tab) 20 meq PO DAILY [facility] Last Admin: 08/07/16 08:45 Dose: 20 meq Risperidone (Risperdal Tab) 0.25 mg PO HS [facility] Last Admin: 08/07/16 21:47 Dose: 0.25 mg Rivaroxaban (Xarelto) 15 mg PO QD5 [facility] PRN Reason: Protocol Last Admin: 08/07/16 16:13 Dose: 15 mg - Labs Labs: 08/06/16 04:30 08/06/16 04:30 PT 15.1 Seconds (9.8-13.1) H 07/30/16 19:10 INR 1.3 (0.9-1.2) H 07/30/16 19:10 APTT 26.5 Seconds (25.6-37.1) 07/30/16 19:10 - Constitutional Appears: Non-toxic, No Acute Distress (alert) - Eye Exam Eye Exam: Normal appearance - Respiratory Exam Respiratory Exam: Clear to Ausculation Bilateral, NORMAL BREATHING PATTERN. absent: Rales, Rhonchi, Wheezes - Cardiovascular Exam Cardiovascular Exam: +S1, +S2. absent: Bradycardia, Tachycardia - GI/Abdominal Exam GI & Abdominal Exam: Soft, Normal Bowel Sounds. absent: Tenderness - Neurological Exam Neurological Exam: Alert, Awake, CN II-XII Intact - Skin Skin Exam: Dry, Intact, Normal Color Assessment and Plan - Assessment and Plan (Free Text) Assessment: 85 year old female admitted for CAP, with acute decompenstation likely secondary to CHF and subsequent transfer to ICU. Patient has thrombus in left atrial appendage subsequently started on Xarelto. Currently on IV antibiotics for pneumonia. Patient stable for transfer out of ICU. . Pneumonia . History of atrial fibrillation and IHSS . CHF (congestive heart failure) . Bacterial conjunctivitis of right eye . DVT prophylaxis . Hypertension . Biplolar disorder . Pneumonia Improved IV antibiotics : Day#2 Clindamycin Day#6 Zosyn 3.3375 q6 Received 5 days of IV Vancomycin 1g BID - - Incentive Spirometry - duonebs q6 -O2 as needed . History of atrial fibrillation and IHSS -currently in afib, thrombus in left atrial appendage, on Xarelto -pt for elective cardioversion after 1 month of anticoagulation. . CHF (congestive heart failure) - diastolic CHF Echo (11/23/2014) showing abnormal relaxation pattern as well as decrease in EF (45-50%). - Coreg 3.125mg BID/ Lasix 20mg as per cardiology - Potassium 20meq daily/simvastatin 20meq qhs . Bacterial conjunctivitis of right eye -resolved s/p 5 day course of cipro . DVT prophylaxis -xarelto. . Hypertension Chronic, stable. - coreg/lasix , as per cardio, monitor BP . Biplolar disorder -risperdal 0.25 qhs <Asim Gooden - Last Filed: 08/09/16 06:48> Objective - Vital Signs/Intake and Output Vital Signs (last 24 hours): Temp Pulse Resp BP Pulse Ox 97.8 F 60 72 H 156/68 H 94 L 08/08/16 07:42 08/08/16 10:26 08/08/16 07:43 08/08/16 10:36 08/08/16 10:26 - Labs Labs: 08/06/16 04:30 08/06/16 04:30 PT 15.1 Seconds (9.8-13.1) H 07/30/16 19:10 INR 1.3 (0.9-1.2) H 07/30/16 19:10 APTT 26.5 Seconds (25.6-37.1) 07/30/16 19:10 Attending/Attestation - Attestation I have personally seen and examined this patient.: Yes I have fully participated in the care of the patient.: Yes I have reviewed all pertinent clinical information, including history, physical exam and plan: Yes
[2016-08-08 07:43] VITALS: TEMP 97.8; O2SAT 94
[2016-08-08 07:49] VITALS: RESP 72
[2016-08-08] MEDS: Potassium Chloride 20 mEq ER Tab PO SCH (08:38)
[2016-08-08] MEDS: guaiFENesin-DM 600-30 mg ER Tab PO SCH (08:41)
--- NOTE | 2016-08-08 09:07 | CP.PCM.PN ---
Subjective - Date & Time of Evaluation Date of Evaluation: 08/08/16 Time of Evaluation: 09:00 - Subjective Subjective: Reports she had a fairly comfortable night Cough has been much resolved Still awaits a bed out of CCU A Fib with VVI paced rhythm at 60 BPM BP 140/70 mm Hg No rales, no gallop Pt is hemodynamically stable and should go to TCU Objective - Vital Signs/Intake and Output Vital Signs (last 24 hours): Temp Pulse Resp BP Pulse Ox 97.8 F 70 72 H 156/76 H 94 L 08/08/16 07:42 08/08/16 08:37 08/08/16 07:43 08/08/16 08:37 08/08/16 07:42 - Medications Medications: Current Medications Acetaminophen (Tylenol 325mg Tab) 650 mg PO Q6 PRN PRN Reason: Headache Albuterol/Ipratropium (Duoneb 3 Mg/0.5 Mg (3 Ml) Ud) 3 ml INH RQ6 [facility] Last Admin: 08/08/16 07:58 Dose: 3 ml Atorvastatin Calcium (Lipitor) 10 mg PO DAILY [facility] Last Admin: 08/08/16 08:38 Dose: 10 mg Carvedilol (Coreg) 3.125 mg PO Q12 [facility] Last Admin: 08/08/16 08:37 Dose: 3.125 mg Furosemide (Lasix) 20 mg PO DAILY [facility] Guaifenesin/Dextromethorphan (Mucinex-Dm 600-30 Mg) 1 tab PO BID [facility] Last Admin: 08/08/16 08:41 Dose: 1 tab Piperacillin Sod/Tazobactam (Sod 3.375 gm/ Sodium Chloride) 100 mls @ 100 mls/ hr IVPB Q6H [facility] Last Admin: 08/08/16 08:39 Dose: 100 mls/hr Clindamycin Phosphate 600 mg/ (Sodium Chloride) 104 mls @ 104 mls/hr IVPB Q8 [facility] Last Admin: 08/08/16 08:37 Dose: 104 mls/hr Potassium Chloride (K-Dur 20 Meq Er Tab) 20 meq PO DAILY [facility] Last Admin: 08/08/16 08:38 Dose: 20 meq Risperidone (Risperdal Tab) 0.25 mg PO HS [facility] Last Admin: 08/07/16 21:47 Dose: 0.25 mg Rivaroxaban (Xarelto) 15 mg PO QD5 [facility] PRN Reason: Protocol Last Admin: 08/07/16 16:13 Dose: 15 mg - Labs Labs: 08/06/16 04:30 08/06/16 04:30 PT 15.1 Seconds (9.8-13.1) H 07/30/16 19:10 INR 1.3 (0.9-1.2) H 07/30/16 19:10 APTT 26.5 Seconds (25.6-37.1) 07/30/16 19:10
[2016-08-08 10:35] VITALS: PULSE 60
[2016-08-08 10:37] VITALS: BP 156/68
--- NOTE | 2016-08-27 15:19 | CP.PCM.DIS ---
<Sammy Ontiveros - Last Filed: 08/30/16 12:14> Provider - Provider Date of Admission: 07/30/16 20:23 Attending physician: Rosas Pathak MD Consults: Cardiology- Dr. 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 Priority: High (6) A-fib Status: Chronic Hospital Course - Lab Results Lab Results: Micro Results 08/08/16 08:00 Naris MRSA Culture (Admit) - Final MRSA NOT DETECTED 08/01/16 Unknown Nose MRSA Culture (Admit) - Final MRSA NOT DETECTED 07/31/16 16:59 Sputum Gram Stain - Final 07/31/16 16:59 Sputum Sputum Culture - Final NORMAL ORAL CHANTE 08/01/16 09:45 Urine,Clean Catch Urine Culture - Final No Growth (<1,000 CFU/ML) Most Recent Lab Values WBC 10.0 K/uL (4.8-10.8) 08/06/16 04:30 RBC 3.78 Mil/uL (3.80-5.20) L 08/06/16 04:30 Hgb 11.4 g/dL (12.0-16.0) L 08/06/16 04:30 Hct 35.2 % (34.0-47.0) 08/06/16 04:30 MCV 93.2 fl (81.0-99.0) 08/06/16 04:30 MCH 30.1 pg (27.0-31.0) 08/06/16 04:30 MCHC 32.3 g/dL (33.0-37.0) L 08/06/16 04:30 RDW 14.2 % (11.5-14.5) 08/06/16 04:30 Plt Count 324 K/uL (130-400) 08/06/16 04:30 MPV 7.9 fl (7.2-11.7) 08/06/16 04:30 Neut % (Auto) 77.9 % (50.0-75.0) H 08/06/16 04:30 Lymph % (Auto) 12.2 % (20.0-40.0) L 08/06/16 04:30 Kerr % (Auto) 6.7 % (0.0-10.0) 08/06/16 04:30 Eos % (Auto) 2.6 % (0.0-4.0) 08/06/16 04:30 Baso % (Auto) 0.6 % (0.0-2.0) 08/06/16 04:30 Neut # 7.8 K/uL (1.8-7.0) H 08/06/16 04:30 Lymph # 1.2 K/uL (1.0-4.3) 08/06/16 04:30 Kerr # 0.7 K/uL (0.0-0.8) 08/06/16 04:30 Eos # 0.3 K/uL (0.0-0.7) 08/06/16 04:30 Baso # 0.1 K/uL (0.0-0.2) 08/06/16 04:30 Neutrophils % (Manual) 83 % (42-75) H 08/01/16 06:00 Lymphocytes % (Manual) 9 % (20-50) L 08/01/16 06:00 Monocytes % (Manual) 8 % (0-10) 08/01/16 06:00 Platelet Estimate Normal (NORMAL) 08/01/16 06:00 RBC Morphology Normal (NORMAL) 08/01/16 06:00 PT 15.1 Seconds (9.8-13.1) H 07/30/16 19:10 INR 1.3 (0.9-1.2) H 07/30/16 19:10 APTT 26.5 Seconds (25.6-37.1) 07/30/16 19:10 pCO2 35 mm/Hg (35-45) 07/30/16 19:05 pO2 81 mm/Hg (80-100) 07/30/16 19:05 HCO3 26.0 mmol/L (21-28) 07/30/16 19:05 ABG pH 7.46 (7.35-7.45) H 07/30/16 19:05 ABG Total CO2 26.0 mmol/L (22-28) 07/30/16 19:05 ABG O2 Saturation 98.5 % (95-98) H 07/30/16 19:05 ABG Base Excess 1.4 mmol/L (-2.0-3.0) 07/30/16 19:05 Franco Test Yes 07/30/16 19:05 ABG Potassium 4.2 mmol/L (3.6-5.2) 07/30/16 19:05 A-a O2 Difference 25.0 mm/Hg 07/30/16 19:05 Sodium 132.0 mmol/L (132-148) 07/30/16 19:05 Chloride 104.0 mmol/L (98-107) 07/30/16 19:05 Glucose 85 mg/dL (65-105) 07/30/16 19:05 Lactate 1.1 mmol/L (0.7-2.1) 07/30/16 19:05 FiO2 21.0 % 07/30/16 19:05 Sodium 142 mmol/l (132-148) 08/06/16 04:30 Potassium 4.4 MMOL/L (3.6-5.0) 08/06/16 04:30 Chloride 110 mmol/L (98-107) H 08/06/16 04:30 Carbon Dioxide 25 mmol/L (22-30) 08/06/16 04:30 Anion Gap 11 (10-20) 08/06/16 04:30 BUN 15 mg/dl (7-17) 08/06/16 04:30 Creatinine 0.9 mg/dL (0.7-1.2) 08/06/16 04:30 Est GFR ( Amer) > 60 08/06/16 04:30 Est GFR (Non-Af Amer) 60 08/06/16 04:30 POC Glucose (mg/dL) 98 mg/dL (65-110) 08/04/16 16:05 Random Glucose 85 mg/dL (65-105) 08/06/16 04:30 Calcium 8.5 mg/dL (8.4-10.2) 08/06/16 04:30 Total Bilirubin 0.3 mg/dl (0.2-1.3) 07/30/16 19:10 AST 29 U/L (14-36) 07/30/16 19:10 ALT 36 U/L (9-52) 07/30/16 19:10 Alkaline Phosphatase 107 U/L (38-126) 07/30/16 19:10 Troponin I 0.0340 ng/mL (0.00-0.120) 07/31/16 11:59 NT-Pro-B Natriuret Pep 8210 pg/ml (0-900) H 07/30/16 19:10 Total Protein 6.6 G/DL (6.3-8.2) 07/30/16 19:10 Albumin 3.6 g/dL (3.5-5.0) 07/30/16 19:10 Globulin 3.0 gm/dL (2.2-3.9) 07/30/16 19:10 Albumin/Globulin Ratio 1.2 (1.0-2.1) 07/30/16 19:10 Procalcitonin 0.25 NG/ML (0.19-0.49) 08/01/16 06:00 Arterial Blood Potassium 4.2 mmol/L (3.6-5.2) 07/30/16 19:05 Urine Color Yellow (YELLOW) 08/01/16 09:45 Urine Clarity Clear (Clear) 08/01/16 09:45 Urine pH 6.0 (5.0-8.0) 08/01/16 09:45 Ur Specific [place] 1.018 (1.003-1.030) 08/01/16 09:45 Urine Protein 30 mg/dL (NEGATIVE) 08/01/16 09:45 Urine Glucose (UA) Neg mg/dL (Normal) 08/01/16 09:45 Urine Ketones Trace mg/dL (NEGATIVE) 08/01/16 09:45 Urine Blood Negative (NEGATIVE) 08/01/16 09:45 Urine Nitrate Negative (NEGATIVE) 08/01/16 09:45 Urine Bilirubin Negative (NEGATIVE) 08/01/16 09:45 Urine Urobilinogen 0.2-1.0 mg/dL (0.2-1.0) 08/01/16 09:45 Ur Leukocyte Esterase Neg Gaye/uL (Negative) 08/01/16 09:45 Urine RBC (Auto) 2 /hpf (0-3) 08/01/16 09:45 Urine Microscopic WBC < 1 /hpf (0-5) 08/01/16 09:45 Ur Squamous Epith Cells < 1 /hpf (0-5) 08/01/16 09:45 Vancomycin Trough 18.1 ug/mL (5.0-10.0) H 08/05/16 18:57 Random Vancomycin 16.2 ug/mL 08/05/16 04:15 Mycoplasma pneumon IgG 1.29 (<=0.90) H 07/31/16 06:00 Mycoplasma pneumon IgM 46 U/mL (<770) 07/31/16 06:00 Blood Type O POSITIVE 07/30/16 19:00 Antibody Screen Negative 07/30/16 19:00 BBK History Checked Patient has bt 07/30/16 19:00 - Hospital Course Hospital Course: Discharge summary from ICU. 85 year old female with hx of IHSS, CHF, afib, with AICD Implant with a DDD Pacemaker admitted for CAP treated initially with IV antibiotics switched to PO antibiotics. Patient seemed to be clinically improving but subsequently suffered acute decompensation secondary to bradycardia and hypotension, the patient was was subsequently transferred to ICU. Her AICD/Pacemaker was interrogated and it was discovered that she was in AFIB for over 19 hours. She was then sent for GLORY and found to have a thrombus in left atrial appendage and started on Xarelto. Cardiology recommended the patient have elective cardioversion after appropriate anticoagulation. She was treated for hospital acquired pneumonia with IV antibiotics that has resolved. She was discharged to TCU for further rehabilitation. Discharge medications: Acetaminophen (Tylenol 325mg Tab) 650 mg PO Q6 PRN Albuterol/Ipratropium (Duoneb 3 Mg/0.5 Mg (3 Ml) Ud) 3 ml INH RQ6 [facility] Atorvastatin Calcium (Lipitor) 10 mg PO DAILY [facility] Carvedilol (Coreg) 3.125 mg PO Q12 [facility] Guaifenesin/Dextromethorphan (Mucinex-Dm 600-30 Mg) 1 tab PO BID [facility] Piperacillin Sod/Tazobactam (Sod 3.375 gm/ Sodium Chloride) 100 mls @ 100 mls/ hr IVPB Q6H [facility] Clindamycin Phosphate 600 mg/ (Sodium Chloride) 104 mls @ 104 mls/hr IVPB Q8 [facility] Potassium Chloride (K-Dur 20 Meq Er Tab) 20 meq PO DAILY [facility] Risperidone (Risperdal Tab) 0.25 mg PO HS [facility] Rivaroxaban (Xarelto) 15 mg PO QD5 [facility] Discharge Plan - Follow Up Plan Condition: GUARDED Disposition: REHAB FACILITY/REHAB UNIT Instructions: Heart Failure (DC), Heart Failure (GEN), Pacemaker (DC), Pacemaker (GEN), Pulmonary Edema (DC), Pulmonary Edema (GEN) Referrals: Asim Gooden MD [Staff Provider] - <Asim Gooden - Last Filed: 09/02/16 06:48> Provider - Provider Date of Admission: 07/30/16 20:23 Attending physician: Rosas Pathak MD Hospital Course - Lab Results Lab Results: Micro Results 08/08/16 08:00 Naris MRSA Culture (Admit) - Final MRSA NOT DETECTED 08/01/16 Unknown Nose MRSA Culture (Admit) - Final MRSA NOT DETECTED 07/31/16 16:59 Sputum Gram Stain - Final 07/31/16 16:59 Sputum Sputum Culture - Final NORMAL ORAL CHANTE 08/01/16 09:45 Urine,Clean Catch Urine Culture - Final No Growth (<1,000 CFU/ML) Most Recent Lab Values WBC 10.0 K/uL (4.8-10.8) 08/06/16 04:30 RBC 3.78 Mil/uL (3.80-5.20) L 08/06/16 04:30 Hgb 11.4 g/dL (12.0-16.0) L 08/06/16 04:30 Hct 35.2 % (34.0-47.0) 08/06/16 04:30 MCV 93.2 fl (81.0-99.0) 08/06/16 04:30 MCH 30.1 pg (27.0-31.0) 08/06/16 04:30 MCHC 32.3 g/dL (33.0-37.0) L 08/06/16 04:30 RDW 14.2 % (11.5-14.5) 08/06/16 04:30 Plt Count 324 K/uL (130-400) 08/06/16 04:30 MPV 7.9 fl (7.2-11.7) 08/06/16 04:30 Neut % (Auto) 77.9 % (50.0-75.0) H 08/06/16 04:30 Lymph % (Auto) 12.2 % (20.0-40.0) L 08/06/16 04:30 Kerr % (Auto) 6.7 % (0.0-10.0) 08/06/16 04:30 Eos % (Auto) 2.6 % (0.0-4.0) 08/06/16 04:30 Baso % (Auto) 0.6 % (0.0-2.0) 08/06/16 04:30 Neut # 7.8 K/uL (1.8-7.0) H 08/06/16 04:30 Lymph # 1.2 K/uL (1.0-4.3) 08/06/16 04:30 Kerr # 0.7 K/uL (0.0-0.8) 08/06/16 04:30 Eos # 0.3 K/uL (0.0-0.7) 08/06/16 04:30 Baso # 0.1 K/uL (0.0-0.2) 08/06/16 04:30 Neutrophils % (Manual) 83 % (42-75) H 08/01/16 06:00 Lymphocytes % (Manual) 9 % (20-50) L 08/01/16 06:00 Monocytes % (Manual) 8 % (0-10) 08/01/16 06:00 Platelet Estimate Normal (NORMAL) 08/01/16 06:00 RBC Morphology Normal (NORMAL) 08/01/16 06:00 PT 15.1 Seconds (9.8-13.1) H 07/30/16 19:10 INR 1.3 (0.9-1.2) H 07/30/16 19:10 APTT 26.5 Seconds (25.6-37.1) 07/30/16 19:10 pCO2 35 mm/Hg (35-45) 07/30/16 19:05 pO2 81 mm/Hg (80-100) 07/30/16 19:05 HCO3 26.0 mmol/L (21-28) 07/30/16 19:05 ABG pH 7.46 (7.35-7.45) H 07/30/16 19:05 ABG Total CO2 26.0 mmol/L (22-28) 07/30/16 19:05 ABG O2 Saturation 98.5 % (95-98) H 07/30/16 19:05 ABG Base Excess 1.4 mmol/L (-2.0-3.0) 07/30/16 19:05 Frnaco Test Yes 07/30/16 19:05 ABG Potassium 4.2 mmol/L (3.6-5.2) 07/30/16 19:05 A-a O2 Difference 25.0 mm/Hg 07/30/16 19:05 Sodium 132.0 mmol/L (132-148) 07/30/16 19:05 Chloride 104.0 mmol/L (98-107) 07/30/16 19:05 Glucose 85 mg/dL (65-105) 07/30/16 19:05 Lactate 1.1 mmol/L (0.7-2.1) 07/30/16 19:05 FiO2 21.0 % 07/30/16 19:05 Sodium 142 mmol/l (132-148) 08/06/16 04:30 Potassium 4.4 MMOL/L (3.6-5.0) 08/06/16 04:30 Chloride 110 mmol/L (98-107) H 08/06/16 04:30 Carbon Dioxide 25 mmol/L (22-30) 08/06/16 04:30 Anion Gap 11 (10-20) 08/06/16 04:30 BUN 15 mg/dl (7-17) 08/06/16 04:30 Creatinine 0.9 mg/dL (0.7-1.2) 08/06/16 04:30 Est GFR ( Amer) > 60 08/06/16 04:30 Est GFR (Non-Af Amer) 60 08/06/16 04:30 POC Glucose (mg/dL) 98 mg/dL (65-110) 08/04/16 16:05 Random Glucose 85 mg/dL (65-105) 08/06/16 04:30 Calcium 8.5 mg/dL (8.4-10.2) 08/06/16 04:30 Total Bilirubin 0.3 mg/dl (0.2-1.3) 07/30/16 19:10 AST 29 U/L (14-36) 07/30/16 19:10 ALT 36 U/L (9-52) 07/30/16 19:10 Alkaline Phosphatase 107 U/L (38-126) 07/30/16 19:10 Troponin I 0.0340 ng/mL (0.00-0.120) 07/31/16 11:59 NT-Pro-B Natriuret Pep 8210 pg/ml (0-900) H 07/30/16 19:10 Total Protein 6.6 G/DL (6.3-8.2) 07/30/16 19:10 Albumin 3.6 g/dL (3.5-5.0) 07/30/16 19:10 Globulin 3.0 gm/dL (2.2-3.9) 07/30/16 19:10 Albumin/Globulin Ratio 1.2 (1.0-2.1) 07/30/16 19:10 Procalcitonin 0.25 NG/ML (0.19-0.49) 08/01/16 06:00 Arterial Blood Potassium 4.2 mmol/L (3.6-5.2) 07/30/16 19:05 Urine Color Yellow (YELLOW) 08/01/16 09:45 Urine Clarity Clear (Clear) 08/01/16 09:45 Urine pH 6.0 (5.0-8.0) 08/01/16 09:45 Ur Specific [place] 1.018 (1.003-1.030) 08/01/16 09:45 Urine Protein 30 mg/dL (NEGATIVE) 08/01/16 09:45 Urine Glucose (UA) Neg mg/dL (Normal) 08/01/16 09:45 Urine Ketones Trace mg/dL (NEGATIVE) 08/01/16 09:45 Urine Blood Negative (NEGATIVE) 08/01/16 09:45 Urine Nitrate Negative (NEGATIVE) 08/01/16 09:45 Urine Bilirubin Negative (NEGATIVE) 08/01/16 09:45 Urine Urobilinogen 0.2-1.0 mg/dL (0.2-1.0) 08/01/16 09:45 Ur Leukocyte Esterase Neg Gaye/uL (Negative) 08/01/16 09:45 Urine RBC (Auto) 2 /hpf (0-3) 08/01/16 09:45 Urine Microscopic WBC < 1 /hpf (0-5) 08/01/16 09:45 Ur Squamous Epith Cells < 1 /hpf (0-5) 08/01/16 09:45 Vancomycin Trough 18.1 ug/mL (5.0-10.0) H 08/05/16 18:57 Random Vancomycin 16.2 ug/mL 08/05/16 04:15 Mycoplasma pneumon IgG 1.29 (<=0.90) H 07/31/16 06:00 Mycoplasma pneumon IgM 46 U/mL (<770) 07/31/16 06:00 Blood Type O POSITIVE 07/30/16 19:00 Antibody Screen Negative 07/30/16 19:00 BBK History Checked Patient has bt 07/30/16 19:00 Attending/Attestation - Attestation I have personally seen and examined this patient.: Yes I have fully participated in the care of the patient.: Yes I have reviewed all pertinent clinical information, including history, physical exam and plan: Yes
--- NOTE | 2016-09-12 13:40 | CARD ---
APPROVED REPORT EXAM: Transesophageal echocardiogram with color flow Doppler and Synchronized Cardioversion. INDICATION ICD: CARDIOVERSION Pre-Op Atrial Fibrillation Reason For Test : Rule out Intracardiac Thrombus. PROCEDURE After obtaining informed consent, patient underwent transesophageal echo in the ICU/CCU. Type of Sedation : Sedation was provided by anesthesiologist. Sedation was achieved with intravenously. The GLORY was performed complications. Throughout the procedure, the blood pressure, pulse oximetry, cardiac rhythm, and rate were monitored. LEFT VENTRICLE LEft ventricle of normal size with, SEVERE LVH- hypercontractile LV. EF > 65% RIGHT VENTRICLE The right ventricle is normal size. There is normal right ventricular wall thickness. The right ventricular systolic function is normal. ATRIA The left atrium is moderately dilated. There is a thrombus suspected in the left atrial appendage. Spontaneous echo contrast seen. Patient in atrial flutter with velocities in the CHAYO approaching 0.4 M/s The right atrium size is normal. The interatrial septum is intact with no evidence for an atrial septal defect. AORTIC VALVE The aortic valve is normal in structure and function. There is mild aortic regurgitation. There is no aortic valvular stenosis. MITRAL VALVE Mitral annular calcification is mild. The mitral valve leaflets are calcified. Mitral regurgitation is mild. TRICUSPID VALVE The tricuspid valve is normal in structure and function. There is trace to mild tricuspid regurgitation. GREAT VESSELS The aortic root is normal in size. 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 CHAYO thrombus suspected with spontaneous echo contrast. CARDIOVERSION- deffered until patient has undergone 30 days of full anticoagulation. Discussed with Dr Rodriguez.
== END 2016-08-08 13:00 | DRG 193 ==
LOC: H.ER 18:20 → H.ERHOLD 20:23 → H.TEL 21:39 → H.ICU/CCU 08-01 20:09
PROVIDERS: ADMIT Family Medicine; ATTEND Family Medicine
PROC: 3E0334Z Introduction of Serum, Toxoid and Vaccine into Peripheral Vein, Percutaneous Approach (ICD-10-PCS; 2016-08-01)
PROC: B246ZZ4 Ultrasonography of Right and Left Heart, Transesophageal (ICD-10-PCS; principal; 2016-08-02 15:00)
DX: J18.9 Pneumonia, unspecified organism (principal); I50.33 Acute on chronic diastolic (congestive) heart failure; I42.1 Obstructive hypertrophic cardiomyopathy; I48.92 Unspecified atrial flutter; I42.2 Other hypertrophic cardiomyopathy; I48.2 Chronic atrial fibrillation; I51.3 Intracardiac thrombosis, not elsewhere classified; H10.31 Unspecified acute conjunctivitis, right eye; Z23 Encounter for immunization; E78.00 Pure hypercholesterolemia, unspecified; E78.5 Hyperlipidemia, unspecified; F20.9 Schizophrenia, unspecified; F31.9 Bipolar disorder, unspecified; I11.0 Hypertensive heart disease with heart failure; I25.10 Atherosclerotic heart disease of native coronary artery without angina pectoris; I25.2 Old myocardial infarction; Z95.0 Presence of cardiac pacemaker; Z95.810 Presence of automatic (implantable) cardiac defibrillator; Z95.5 Presence of coronary angioplasty implant and graft

== ENCOUNTER 2016-08-08 12:27 | Inpatient (IN) | payer OTHER, MEDICARE ==
[2016-08-08 13:23] VITALS: BMI 29.1
[2016-08-08 15:19] VITALS: RESP 20
[2016-08-08] MEDS: Albuterol-Ipratrop 3 mg / 0.5 (3 ml) UD INH SCH ×2 (15:36→19:07)
[2016-08-08] MEDS: guaiFENesin-DM 600-30 mg ER Tab PO SCH (16:32)
[2016-08-08] MEDS: Piperacillin/Tazobact 3.375 GM in Sodium Chloride 0.9% 100 ML IVPB SCH (17:05)
[2016-08-09] MEDS: Piperacillin/Tazobact 3.375 GM in Sodium Chloride 0.9% 100 ML IVPB SCH ×5 (01:27→23:53)
--- NOTE | 2016-08-09 07:31 | CP.PCM.PN ---
Subjective - Date & Time of Evaluation Date of Evaluation: 08/09/16 Time of Evaluation: 06:50 - Subjective Subjective: no complaint Objective - Vital Signs/Intake and Output Vital Signs (last 24 hours): Temp Pulse Resp BP Pulse Ox 97.3 F L 61 20 144/73 98 08/08/16 20:22 08/08/16 20:22 08/08/16 20:22 08/08/16 20:38 08/08/16 20:22 - Medications Medications: Current Medications Acetaminophen (Tylenol 325mg Tab) 650 mg PO Q4 PRN PRN Reason: Pain, Mild (1-3) Albuterol/Ipratropium (Duoneb 3 Mg/0.5 Mg (3 Ml) Ud) 3 ml INH RQID [facility] Last Admin: 08/08/16 19:07 Dose: 3 ml Atorvastatin Calcium (Lipitor) 10 mg PO HS [facility] Last Admin: 08/08/16 22:05 Dose: 10 mg Carvedilol (Coreg) 3.125 mg PO Q12 [facility] Last Admin: 08/08/16 20:38 Dose: 3.125 mg Furosemide (Lasix) 20 mg PO DAILY [facility] Guaifenesin/Dextromethorphan (Mucinex-Dm 600-30 Mg) 1 tab PO BID [facility] Last Admin: 08/08/16 16:32 Dose: 1 tab Clindamycin Phosphate 600 mg/ (Sodium Chloride) 54 mls @ 54 mls/hr IVPB Q8@0500 ,1300,2100 [facility] Last Admin: 08/09/16 06:34 Dose: 54 mls/hr Piperacillin Sod/Tazobactam (Sod 3.375 gm/ Sodium Chloride) 100 mls @ 100 mls/ hr IVPB 0600,1200,1800,0000 [facility] Last Admin: 08/09/16 06:36 Dose: 100 mls/hr Potassium Chloride (K-Dur 20 Meq Er Tab) 20 meq PO DAILY [facility] Risperidone (Risperdal Tab) 0.25 mg PO HS [facility] Last Admin: 08/08/16 22:05 Dose: 0.25 mg Rivaroxaban (Xarelto) 15 mg PO QD5 [facility] PRN Reason: Protocol Last Admin: 08/08/16 16:19 Dose: 15 mg - Head Exam Head Exam: NORMAL INSPECTION - Eye Exam Eye Exam: Normal appearance - Neck Exam Neck Exam: Normal Inspection - Respiratory Exam Respiratory Exam: Decreased Breath Sounds - Cardiovascular Exam Cardiovascular Exam: Irregular Rhythm - GI/Abdominal Exam GI & Abdominal Exam: Normal Bowel Sounds - Extremities Exam Extremities Exam: absent: Calf Tenderness, Pedal Edema - Back Exam Back Exam: NORMAL INSPECTION - Neurological Exam Neurological Exam: Alert, Awake, Oriented x3 - Psychiatric Exam Psychiatric exam: Normal Affect, Normal Mood Assessment and Plan (1) Acute systolic CHF (congestive heart failure) Status: Acute (2) Atrial fibrillation with rapid ventricular response Status: Acute (3) Chills (without fever) Status: Acute (4) DVT prophylaxis Status: Acute (5) Diarrhea Status: Acute (6) Hypertrophic cardiomyopathy Status: Acute (7) Pneumonia Status: Acute (8) A-fib Status: Chronic (9) CAD (coronary artery disease) Status: Chronic (10) History of atrial fibrillation Status: Chronic (11) Hypertension Status: Chronic - Assessment and Plan (Free Text) Assessment: continue same care plan will discuss with Dr Pete and Dr Ontiveros
[2016-08-09 07:38] LABS: BLOOD UREA NITROGEN 19 mg/dl (7-17); CALCIUM 9.2 mg/dL (8.4-10.2); GFR AFRICAN-AMERICAN > 60; GFR NON-AFRICAN AMERICAN 53
[2016-08-09] MEDS: Albuterol-Ipratrop 3 mg / 0.5 (3 ml) UD INH SCH ×4 (07:39→19:31)
[2016-08-09 08:17] LABS: HEMOGLOBIN 12.5 g/dL (12.0-16.0); MEAN CELL VOLUME 92.4 fl (81.0-99.0); MEAN CORPUSCULAR HEMOGLOBIN 30.2 pg (27.0-31.0); MEAN CORPUSCULAR HGB CONC 32.7 g/dL (33.0-37.0); RBC 4.14 Mil/uL (3.80-5.20); RED CELL DISTRIBUTION WIDTH 14.4 % (11.5-14.5)
--- NOTE | 2016-08-09 08:48 | CP.PCM.CON ---
History of Present Illness - History of Present Illness History of Present Illness: Full Note Dictated A Fib with CHF (LV, diastolic, Chr) LA Thrombus IHSS S/P AICD with DDD pacer Implant Stable CAD (H/O IWMI) Bipolar Disorder 3 more WKs of oral anticoagulation then elective D/C cardioversion Stable from cardiac point of view. Past Patient History - Tetanus Immunizations Tetanus Immunization: Unknown - Past Medical History & Family History Past Medical History?: Yes - Past Social History Smoking Status: Never Smoked - CARDIAC Hx Atrial Fibrillation: Yes Hx Cardia Arrhythmia: Yes Hx Congestive Heart Failure: Yes Hx Heart Attack: Yes Hx Hypercholesterolemia: Yes Hx Hypertension: Yes Hx Pacemaker: Yes Other/Comment: [facility] with cardioversion - PULMONARY Hx Pneumonia: Yes (community acquired) - NEUROLOGICAL Hx Neurological Disorder: Yes (dizziness) - HEENT Hx HEENT Problems: No - RENAL Hx Chronic Kidney Disease: No - ENDOCRINE/METABOLIC Hx Endocrine Disorders: No - HEMATOLOGICAL/ONCOLOGICAL Hx AIDS: No Hx Anemia: Yes Hx Human Immunodeficiency Virus (HIV): No - INTEGUMENTARY Hx Dermatological Problems: No - MUSCULOSKELETAL/RHEUMATOLOGICAL Hx Arthritis: Yes Hx Falls: Yes Hx Fractures: Yes (right knee patella) - GASTROINTESTINAL Hx Diverticulitis: Yes - GENITOURINARY/GYNECOLOGICAL Hx Genitourinary Disorders: No (hx UTI) - PSYCHIATRIC Hx Anxiety: Yes Hx Depression: Yes Hx Schizophrenia: Yes Hx Substance Use: No - SURGICAL HISTORY Hx Orthopedic Surgery: Yes (RIGHT KNEE SURGERY) Other/Comment: CARDIAC CATH - ANESTHESIA Hx Anesthesia: Yes Hx Anesthesia Reactions: No Hx Malignant Hyperthermia: No Meds Allergies/Adverse Reactions: Allergies Allergy/AdvReac Type Severity Reaction Status Date / Time No Known Allergies Allergy Verified 08/08/16 13:26 - Medications Medications: Current Medications Acetaminophen (Tylenol 325mg Tab) 650 mg PO Q4 PRN PRN Reason: Pain, Mild (1-3) Albuterol/Ipratropium (Duoneb 3 Mg/0.5 Mg (3 Ml) Ud) 3 ml INH RQID [facility] Last Admin: 08/09/16 07:39 Dose: 3 ml Atorvastatin Calcium (Lipitor) 10 mg PO HS [facility] Last Admin: 08/08/16 22:05 Dose: 10 mg Carvedilol (Coreg) 3.125 mg PO Q12 [facility] Last Admin: 08/08/16 20:38 Dose: 3.125 mg Furosemide (Lasix) 20 mg PO DAILY [facility] Guaifenesin/Dextromethorphan (Mucinex-Dm 600-30 Mg) 1 tab PO BID [facility] Last Admin: 08/08/16 16:32 Dose: 1 tab Clindamycin Phosphate 600 mg/ (Sodium Chloride) 54 mls @ 54 mls/hr IVPB Q8@0500 ,1300,2100 [facility] Last Admin: 08/09/16 06:34 Dose: 54 mls/hr Piperacillin Sod/Tazobactam (Sod 3.375 gm/ Sodium Chloride) 100 mls @ 100 mls/ hr IVPB 0600,1200,1800,0000 [facility] Last Admin: 08/09/16 06:36 Dose: 100 mls/hr Potassium Chloride (K-Dur 20 Meq Er Tab) 20 meq PO DAILY [facility] Risperidone (Risperdal Tab) 0.25 mg PO HS [facility] Last Admin: 08/08/16 22:05 Dose: 0.25 mg Rivaroxaban (Xarelto) 15 mg PO QD5 [facility] PRN Reason: Protocol Last Admin: 08/08/16 16:19 Dose: 15 mg Results - Vital Signs Recent Vital Signs: Last Vital Signs Temp 97.3 F L 08/08/16 20:22 Pulse 61 08/08/16 20:22 Resp 20 08/08/16 20:22 BP 144/73 08/08/16 20:38 Pulse Ox 98 08/08/16 20:22 - Labs Result Diagrams: 08/09/16 08:14 08/09/16 06:51 Labs: Laboratory Results - last 24 hr 08/09/16 08/09/16 06:51 08:14 WBC 10.0 RBC 4.14 Hgb 12.5 Hct 38.3 MCV 92.4 MCH 30.2 MCHC 32.7 L RDW 14.4 Plt Count 501 H D Sodium 141 Potassium 4.3 Chloride 106 Carbon Dioxide 25 Anion Gap 15 BUN 19 H Creatinine 1.0 Est GFR ( Amer) > 60 Est GFR (Non-Af Amer) 53 Random Glucose 84 Calcium 9.2
[2016-08-09] MEDS: Potassium Chloride 20 mEq ER Tab PO SCH (08:54)
[2016-08-09] MEDS: guaiFENesin-DM 600-30 mg ER Tab PO SCH ×2 (08:55→17:18)
--- NOTE | 2016-08-09 09:42 | CP.PCM.HP ---
<OntiverosAshting - Last Filed: 08/11/16 14:29> History of Present Illness - History of Present Illness History of Present Illness: 85 year old female admitted for CAP, with subsequent acute decompenstation secondary to AFIB. Patient was subsequently transfered to ICU. Patient is curerntly being treated for hospital acuired pnemonia, with IV antibiotics. She has a thrombus in left atrial appendage and was subsequently started on Xarelto. She is admitted to TCU for rehabilitation. PMH: h/o A-fib, dCHF, IHSS, Inferior wall GA, HTN, HLD, RCA stent, diverticulitis PSH: Rt knee for patellar fx, PCI of RCA, AICD Smoke: Never ALL: NKDA Medications: reviewed Present on Admission - Present on Admission Any Indicators Present on Admission: No Past Patient History - Tetanus Immunizations Tetanus Immunization: Unknown - Past Medical History & Family History Past Medical History?: Yes - Past Social History Smoking Status: Never Smoked - CARDIAC Hx Atrial Fibrillation: Yes Hx Cardia Arrhythmia: Yes Hx Congestive Heart Failure: Yes Hx Heart Attack: Yes Hx Hypercholesterolemia: Yes Hx Hypertension: Yes Hx Pacemaker: Yes Other/Comment: [facility]ORY with cardioversion - PULMONARY Hx Pneumonia: Yes (community acquired) - NEUROLOGICAL Hx Neurological Disorder: Yes (dizziness) - HEENT Hx HEENT Problems: No - RENAL Hx Chronic Kidney Disease: No - ENDOCRINE/METABOLIC Hx Endocrine Disorders: No - HEMATOLOGICAL/ONCOLOGICAL Hx AIDS: No Hx Anemia: Yes Hx Human Immunodeficiency Virus (HIV): No - INTEGUMENTARY Hx Dermatological Problems: No - MUSCULOSKELETAL/RHEUMATOLOGICAL Hx Arthritis: Yes Hx Falls: Yes Hx Fractures: Yes (right knee patella) - GASTROINTESTINAL Hx Diverticulitis: Yes - GENITOURINARY/GYNECOLOGICAL Hx Genitourinary Disorders: No (hx UTI) - PSYCHIATRIC Hx Anxiety: Yes Hx Depression: Yes Hx Schizophrenia: Yes Hx Substance Use: No - SURGICAL HISTORY Hx Orthopedic Surgery: Yes (RIGHT KNEE SURGERY) Other/Comment: CARDIAC CATH - ANESTHESIA Hx Anesthesia: Yes Hx Anesthesia Reactions: No Hx Malignant Hyperthermia: No Meds Allergies/Adverse Reactions: Allergies Allergy/AdvReac Type Severity Reaction Status Date / Time No Known Allergies Allergy Verified 08/08/16 13:26 Physical Exam - Constitutional Appears: No Acute Distress - Head Exam Head Exam: NORMAL INSPECTION - ENT Exam ENT Exam: Mucous Membranes Moist - Respiratory Exam Respiratory Exam: Decreased Breath Sounds. absent: Rhonchi, Wheezes, Respiratory Distress - Cardiovascular Exam Cardiovascular Exam: +S1, +S2 - GI/Abdominal Exam Additional comments: unremarkble - Extremities Exam Extremities exam: Positive for: normal inspection. Negative for: pedal edema - Neurological Exam Neurological exam: Alert, CN II-XII Intact - Psychiatric Exam Psychiatric exam: Flat Affect - Skin Skin Exam: Dry, Intact Results - Vital Signs Recent Vital Signs: Last Vital Signs Temp 97.7 F 08/09/16 09:22 Pulse 60 08/09/16 09:22 Resp 20 08/09/16 09:22 BP 143/61 08/09/16 09:22 Pulse Ox 96 08/09/16 09:22 - Labs Result Diagrams: 08/09/16 08:14 08/09/16 06:51 Labs: Laboratory Results - last 24 hr 08/09/16 08/09/16 06:51 08:14 WBC 10.0 RBC 4.14 Hgb 12.5 Hct 38.3 MCV 92.4 MCH 30.2 MCHC 32.7 L RDW 14.4 Plt Count 501 H D Sodium 141 Potassium 4.3 Chloride 106 Carbon Dioxide 25 Anion Gap 15 BUN 19 H Creatinine 1.0 Est GFR ( Amer) > 60 Est GFR (Non-Af Amer) 53 Random Glucose 84 Calcium 9.2 Assessment & Plan - Assessment and Plan (Free Text) Assessment: 85 year old female admitted for CAP, with acute decompenstation likely secondary to CHF and subsequent transfer to ICU. Patient has thrombus in left atrial appendage subsequently started on Xarelto. Currently on IV antibiotics for pneumonia. Physical therapy is going well. Continue with PT/OT . Pneumonia . History of atrial fibrillation and IHSS . CHF (congestive heart failure) . DVT prophylaxis . Hypertension . Biplolar disorder . Pneumonia Improved Continue with Clindamycin and Zosyn. Dr. Christiansen is following. Received 5 days of IV Vancomycin 1g BID - Incentive Spirometry - duonebs q6 - O2 as needed . History of atrial fibrillation and IHSS -currently in afib, thrombus in left atrial appendage, on Xarelto -pt for elective cardioversion after 1 month of anticoagulation. . CHF (congestive heart failure) - diastolic CHF Echo (11/23/2014) showing abnormal relaxation pattern as well as decrease in EF (45-50%). - Coreg 3.125mg BID/ Lasix 20mg as per cardiology - Potassium 20meq daily/simvastatin 20meq qhs . DVT prophylaxis -xarelto. . Hypertension Chronic, stable. - coreg/lasix , as per cardio, monitor BP . Biplolar disorder -risperdal 0.25 qhs <Asim Gooden - Last Filed: 08/15/16 06:42> Results - Vital Signs Recent Vital Signs: Last Vital Signs Temp 97.9 F 08/14/16 20:35 Pulse 60 08/14/16 20:35 Resp 20 08/14/16 20:35 BP 136/90 08/14/16 21:21 Pulse Ox 96 08/14/16 20:35 - Labs Result Diagrams: 08/13/16 07:18 08/13/16 07:18 Assessment & Plan (1) Acute systolic CHF (congestive heart failure) Status: Acute (2) Atrial fibrillation with rapid ventricular response Status: Acute Priority: High (3) Chills (without fever) Status: Acute (4) DVT prophylaxis Status: Acute (5) Diarrhea Status: Acute (6) Hypertrophic cardiomyopathy Status: Acute (7) Pneumonia Status: Acute (8) A-fib Status: Chronic (9) CAD (coronary artery disease) Status: Chronic (10) History of atrial fibrillation Status: Chronic (11) Hypertension Status: Chronic Attending/Attestation - Attestation I have personally seen and examined this patient.: Yes I have fully participated in the care of the patient.: Yes I have reviewed all pertinent clinical information: Yes
[2016-08-10] MEDS: Piperacillin/Tazobact 3.375 GM in Sodium Chloride 0.9% 100 ML IVPB SCH ×4 (05:27→23:55)
[2016-08-10] MEDS: Albuterol-Ipratrop 3 mg / 0.5 (3 ml) UD INH SCH ×4 (07:44→19:26)
[2016-08-10] MEDS: guaiFENesin-DM 600-30 mg ER Tab PO SCH ×2 (08:55→17:23)
[2016-08-10] MEDS: Potassium Chloride 20 mEq ER Tab PO SCH (08:55)
[2016-08-10] MEDS ORDERED: Clindamycin 600 MG in Sodium Chloride 0.9% 100 ML IVPB SCH (13:00)
--- NOTE | 2016-08-10 17:22 | CP.PCM.PN ---
Subjective - Date & Time of Evaluation Date of Evaluation: 08/10/16 Time of Evaluation: 17:15 - Subjective Subjective: I D NOTE CXR HAS IMPROVED WILL DISCONTINUE CLINDAMYCIN CONTINUE ZOSYN Objective - Vital Signs/Intake and Output Vital Signs (last 24 hours): Temp Pulse Resp BP Pulse Ox 97.5 F L 60 20 132/70 96 08/10/16 16:49 08/10/16 16:49 08/10/16 16:49 08/10/16 16:49 08/10/16 16:49 - Medications Medications: Current Medications Acetaminophen (Tylenol 325mg Tab) 650 mg PO Q4 PRN PRN Reason: Pain, Mild (1-3) Albuterol/Ipratropium (Duoneb 3 Mg/0.5 Mg (3 Ml) Ud) 3 ml INH RQID [facility] Last Admin: 08/10/16 15:19 Dose: Not Given Atorvastatin Calcium (Lipitor) 10 mg PO HS [facility] Last Admin: 08/09/16 21:12 Dose: 10 mg Carvedilol (Coreg) 3.125 mg PO Q12 [facility] Last Admin: 08/10/16 08:56 Dose: 3.125 mg Furosemide (Lasix) 20 mg PO DAILY [facility] Last Admin: 08/10/16 08:55 Dose: 20 mg Guaifenesin/Dextromethorphan (Mucinex-Dm 600-30 Mg) 1 tab PO BID [facility] Last Admin: 08/10/16 08:55 Dose: 1 tab Piperacillin Sod/Tazobactam (Sod 3.375 gm/ Sodium Chloride) 100 mls @ 100 mls/ hr IVPB 0600,1200,1800,0000 [facility] Last Admin: 08/10/16 12:03 Dose: 100 mls/hr Clindamycin Phosphate 600 mg/ (Sodium Chloride) 104 mls @ 104 mls/hr IVPB Q8@ 0500,1300,2100 [facility] Last Admin: 08/10/16 12:04 Dose: 104 mls/hr Potassium Chloride (K-Dur 20 Meq Er Tab) 20 meq PO DAILY [facility] Last Admin: 08/10/16 08:55 Dose: 20 meq Risperidone (Risperdal Tab) 0.25 mg PO HS [facility] Last Admin: 08/09/16 21:13 Dose: 0.25 mg Rivaroxaban (Xarelto) 15 mg PO QD5 [facility] PRN Reason: Protocol Last Admin: 08/09/16 17:18 Dose: 15 mg - Labs Labs: 08/09/16 08:14 08/09/16 06:51
[2016-08-11] MEDS: Piperacillin/Tazobact 3.375 GM in Sodium Chloride 0.9% 100 ML IVPB SCH ×3 (05:00→17:45)
[2016-08-11] MEDS: Albuterol-Ipratrop 3 mg / 0.5 (3 ml) UD INH SCH ×4 (08:37→19:23)
[2016-08-11] MEDS: guaiFENesin-DM 600-30 mg ER Tab PO SCH ×2 (08:42→17:45)
[2016-08-11] MEDS: Potassium Chloride 20 mEq ER Tab PO SCH (08:42)
[2016-08-12] MEDS: Piperacillin/Tazobact 3.375 GM in Sodium Chloride 0.9% 100 ML IVPB SCH ×4 (00:50→17:10)
--- NOTE | 2016-08-12 07:33 | CP.PCM.PN ---
<Sammy Ontiveros - Last Filed: 08/12/16 17:39> Subjective - Date & Time of Evaluation Date of Evaluation: 08/12/16 Time of Evaluation: 15:50 - Subjective Subjective: Patient doing well. PT is going well, but was tiresome today. She still has mild cough, non productive.No chest pain, dyspnea, dizziness. Continue Xarelto. Antibiotics discontinued. Objective - Vital Signs/Intake and Output Vital Signs (last 24 hours): Temp Pulse Resp BP Pulse Ox 98.1 F 64 20 109/59 L 96 08/11/16 20:56 08/11/16 21:49 08/11/16 20:56 08/11/16 20:56 08/11/16 20:56 - Medications Medications: Current Medications Acetaminophen (Tylenol 325mg Tab) 650 mg PO Q4 PRN PRN Reason: Pain, Mild (1-3) Albuterol/Ipratropium (Duoneb 3 Mg/0.5 Mg (3 Ml) Ud) 3 ml INH RQID [facility] Last Admin: 08/11/16 19:23 Dose: 3 ml Atorvastatin Calcium (Lipitor) 10 mg PO HS [facility] Last Admin: 08/11/16 21:50 Dose: 10 mg Carvedilol (Coreg) 3.125 mg PO Q12 [facility] Last Admin: 08/11/16 21:49 Dose: 3.125 mg Furosemide (Lasix) 20 mg PO DAILY [facility] Last Admin: 08/11/16 08:42 Dose: 20 mg Guaifenesin/Dextromethorphan (Mucinex-Dm 600-30 Mg) 1 tab PO BID [facility] Last Admin: 08/11/16 17:45 Dose: 1 tab Piperacillin Sod/Tazobactam (Sod 3.375 gm/ Sodium Chloride) 100 mls @ 100 mls/ hr IVPB 0600,1200,1800,0000 [facility] Last Admin: 08/12/16 06:21 Dose: 100 mls/hr Potassium Chloride (K-Dur 20 Meq Er Tab) 20 meq PO DAILY [facility] Last Admin: 08/11/16 08:42 Dose: 20 meq Risperidone (Risperdal Tab) 0.25 mg PO HS [facility] Last Admin: 08/11/16 21:50 Dose: 0.25 mg Rivaroxaban (Xarelto) 15 mg PO QD5 [facility] PRN Reason: Protocol Last Admin: 08/11/16 17:45 Dose: 15 mg - Labs Labs: 08/09/16 08:14 08/09/16 06:51 - Constitutional Appears: Non-toxic, No Acute Distress - ENT Exam ENT Exam: Mucous Membranes Moist - Respiratory Exam Respiratory Exam: Clear to Ausculation Bilateral, NORMAL BREATHING PATTERN. absent: Decreased Breath Sounds, Rales, Wheezes, Respiratory Distress - Cardiovascular Exam Cardiovascular Exam: REGULAR RHYTHM, +S1, +S2 - GI/Abdominal Exam GI & Abdominal Exam: Soft. absent: Distended, Guarding, Tenderness - Extremities Exam Extremities Exam: Pedal Edema (trace) - Neurological Exam Neurological Exam: Alert, Awake, CN II-XII Intact - Psychiatric Exam Psychiatric exam: Flat Affect - Skin Skin Exam: Dry, Intact Assessment and Plan - Assessment and Plan (Free Text) Assessment: 85 year old female admitted for CAP, with acute decompenstation likely secondary to CHF and subsequent transfer to ICU. Patient has thrombus in left atrial appendage subsequently started on Xarelto. Currently on IV antibiotics for pneumonia, discontinue antibiotics today as per Dr. Beaulieu . Pneumonia . History of atrial fibrillation and IHSS . CHF (congestive heart failure) . DVT prophylaxis . Hypertension . Biplolar disorder . Pneumonia clinically improved, cough persists, lungs clear zosyn/clinda d/c Dr. Christiansen is following. Received 5 days of IV Vancomycin 1g BID - Incentive Spirometry - duonebs q6 dillon - O2 as needed . History of atrial fibrillation and IHSS -currently in afib, thrombus in left atrial appendage, on Xarelto -pt for elective cardioversion after 1 month of anticoagulation. . CHF (congestive heart failure) - diastolic CHF Echo (11/23/2014) showing abnormal relaxation pattern as well as decrease in EF (45-50%). - Coreg 3.125mg BID/ Lasix 20mg as per cardiology - Potassium 20meq daily/simvastatin 20meq qhs . DVT prophylaxis -xarelto. . Hypertension Chronic, stable. - coreg/lasix , as per cardio, monitor BP . Biplolar disorder -risperdal 0.25 qhs <Rosas Pathak - Last Filed: 08/13/16 07:05> Objective - Vital Signs/Intake and Output Vital Signs (last 24 hours): Temp Pulse Resp BP Pulse Ox 97.7 F 65 20 130/76 97 08/12/16 20:11 08/12/16 21:51 08/12/16 20:11 08/12/16 21:51 08/12/16 20:11 - Medications Medications: Current Medications Acetaminophen (Tylenol 325mg Tab) 650 mg PO Q4 PRN PRN Reason: Pain, Mild (1-3) Albuterol/Ipratropium (Duoneb 3 Mg/0.5 Mg (3 Ml) Ud) 3 ml INH RQID [facility] Last Admin: 08/12/16 18:59 Dose: 3 ml Atorvastatin Calcium (Lipitor) 10 mg PO HS [facility] Last Admin: 08/12/16 21:51 Dose: 10 mg Carvedilol (Coreg) 3.125 mg PO Q12 [facility] Last Admin: 08/12/16 21:51 Dose: 3.125 mg Furosemide (Lasix) 20 mg PO DAILY [facility] Last Admin: 08/12/16 08:28 Dose: 20 mg Guaifenesin/Dextromethorphan (Mucinex-Dm 600-30 Mg) 1 tab PO BID [facility] Last Admin: 08/12/16 17:09 Dose: 1 tab Potassium Chloride (K-Dur 20 Meq Er Tab) 20 meq PO DAILY [facility] Last Admin: 08/12/16 08:28 Dose: 20 meq Risperidone (Risperdal Tab) 0.25 mg PO HS [facility] Last Admin: 08/12/16 21:51 Dose: 0.25 mg Rivaroxaban (Xarelto) 15 mg PO QD5 [facility] PRN Reason: Protocol Last Admin: 08/12/16 17:09 Dose: 15 mg - Labs Labs: 08/09/16 08:14 08/09/16 06:51 Attending/Attestation - Attestation I have personally seen and examined this patient.: Yes I have fully participated in the care of the patient.: Yes I have reviewed all pertinent clinical information, including history, physical exam and plan: Yes
[2016-08-12] MEDS: Albuterol-Ipratrop 3 mg / 0.5 (3 ml) UD INH SCH ×4 (07:50→18:59)
[2016-08-12] MEDS: guaiFENesin-DM 600-30 mg ER Tab PO SCH ×2 (08:28→17:09)
[2016-08-12] MEDS: Potassium Chloride 20 mEq ER Tab PO SCH (08:28)
--- NOTE | 2016-08-12 08:41 | CON ---
DATE: 08/09/2016 She is hospitalized under Dr. Gooden's care in room 709 of transitional care unit. HISTORY OF PRESENT ILLNESS: This 85-year-old female with idiopathic hypertrophic subaortic stenosis developed atrial fibrillation and prompt congestive cardiac failure because of significant diastolic dysfunction. The patient has had a history of an inferior wall myocardial infarction which involved an urgent stenting of right coronary artery more than 2 years back. Subsequently, she had undergone ablation for atrial fibrillation and had an AICD implanted with a DDD pacemaker. The patient was recently hospitalized with pneumonia and was being treated with antibiotics. She has never been a smoker or a diabetic. The patient does have a prior history of bipolar disorder for which she takes oral medication. The patient underwent a transesophageal echocardiogram 1 week back in preparation for DC cardioversion and was found to have a left atrial thrombus. The cardioversion was canceled. The patient has been on oral anticoagulation and the plan is to continue this for 3 more weeks and then to bring her in for an elective DC cardioversion. In the meantime, the patient has stabilized hemodynamically over the last 7 days. At this point, she is sitting up in a chair, eating breakfast and indicates that she had a fairly comfortable night. PHYSICAL EXAMINATION: GENERAL: Elderly female who is alert, awake, coherent, afebrile. Has just finished eating her breakfast and denies any particular symptoms at this point. Denies recurring nonproductive cough. Denies any chills or fever. VITAL SIGNS: Her pulse was 60 beats per minute, regular and her blood pressure was 128/74 mmHg. NECK: Her jugular venous pressure was not elevated. EXTREMITIES: There was no edema of lower extremity. VASCULAR: The pedal pulses were feeble but distinctly present. There were no carotid bruits. CARDIOPULMONARY: An AICD/DDD pacemaker was in place in the left infraclavicular region. Her first and second heart sounds were normal. There was an ejection systolic murmur in the left third intercostal space. There was no S3 gallop and there were no rales. ABDOMEN: Soft. Liver and spleen were not palpable. Recent electrocardiogram showed evidence of atrial fibrillation with a VVI paced rhythm at 60 beats per minute. LABORATORY DATA: Noted. IMPRESSION: At this time is atrial fibrillation with congestive cardiac failure , which is left ventricular diastolic and chronic; idiopathic hypertrophic subaortic stenosis with a gradient of approximately 190 mmHg in the left ventricular outflow tract, with evidence of left atrial thrombus with a history of inferior wall myocardial infarction, status post right coronary stenting, history of ablation for atrial fibrillation in the past with an automatic implantable cardioverter-defibrillator and a DDD pacemaker implant. The patient has been orally anticoagulated with rivaroxaban and the plans are to continue this for 3 more weeks because 1 week of anticoagulation is complete. The plan is to continue this for 3 more weeks and then to bring the patient back electively for direct current cardioversion. At this point, she is hemodynamically stable. She is here for transitional care before returning home. Joe Rodriguez MD cc: 23 TT: 08/09/2016 11:01:41 Confirmation # [id number] Dictation # [id number] niyah CASTANO
--- NOTE | 2016-08-13 06:50 | CP.PCM.PN ---
<Sammy Ontiveros - Last Filed: 08/13/16 11:01> Subjective - Date & Time of Evaluation Date of Evaluation: 08/13/16 Time of Evaluation: 07:00 - Subjective Subjective: No acute events overnight. Pt sitting upright in bed, with duoneb treatment. No acute distress. Feeling well. Cough+ but non productive. Patient is overall improved. Continue with PT. Objective - Vital Signs/Intake and Output Vital Signs (last 24 hours): Temp Pulse Resp BP Pulse Ox 97.7 F 65 20 130/76 97 08/12/16 20:11 08/12/16 21:51 08/12/16 20:11 08/12/16 21:51 08/12/16 20:11 - Medications Medications: Current Medications Acetaminophen (Tylenol 325mg Tab) 650 mg PO Q4 PRN PRN Reason: Pain, Mild (1-3) Albuterol/Ipratropium (Duoneb 3 Mg/0.5 Mg (3 Ml) Ud) 3 ml INH RQID [facility] Last Admin: 08/12/16 18:59 Dose: 3 ml Atorvastatin Calcium (Lipitor) 10 mg PO HS [facility] Last Admin: 08/12/16 21:51 Dose: 10 mg Carvedilol (Coreg) 3.125 mg PO Q12 [facility] Last Admin: 08/12/16 21:51 Dose: 3.125 mg Furosemide (Lasix) 20 mg PO DAILY [facility] Last Admin: 08/12/16 08:28 Dose: 20 mg Guaifenesin/Dextromethorphan (Mucinex-Dm 600-30 Mg) 1 tab PO BID [facility] Last Admin: 08/12/16 17:09 Dose: 1 tab Potassium Chloride (K-Dur 20 Meq Er Tab) 20 meq PO DAILY [facility] Last Admin: 08/12/16 08:28 Dose: 20 meq Risperidone (Risperdal Tab) 0.25 mg PO HS [facility] Last Admin: 08/12/16 21:51 Dose: 0.25 mg Rivaroxaban (Xarelto) 15 mg PO QD5 [facility] PRN Reason: Protocol Last Admin: 08/12/16 17:09 Dose: 15 mg - Labs Labs: 08/09/16 08:14 08/09/16 06:51 - Constitutional Appears: Non-toxic, No Acute Distress - Head Exam Head Exam: NORMAL INSPECTION - ENT Exam ENT Exam: Mucous Membranes Moist - Respiratory Exam Respiratory Exam: Clear to Ausculation Bilateral, NORMAL BREATHING PATTERN. absent: Rales, Rhonchi, Wheezes - Cardiovascular Exam Cardiovascular Exam: REGULAR RHYTHM, +S1, +S2 - GI/Abdominal Exam GI & Abdominal Exam: Soft, Normal Bowel Sounds. absent: Distended, Firm, Guarding, Tenderness - Rectal Exam Rectal Exam: Deferred - Extremities Exam Extremities Exam: Normal Inspection. absent: Tenderness - Neurological Exam Neurological Exam: Alert, Awake, CN II-XII Intact, Oriented x3 - Psychiatric Exam Psychiatric exam: Normal Affect, Normal Mood - Skin Skin Exam: Dry, Intact Assessment and Plan - Assessment and Plan (Free Text) Assessment: 85 year old female admitted for CAP, with acute decompensation likely secondary to CHF and subsequent transfer to ICU. Patient has thrombus in left atrial appendage subsequently started on Xarelto . Pneumonia . History of atrial fibrillation and IHSS . CHF (congestive heart failure) . DVT prophylaxis . Hypertension . Biplolar disorder . Pneumonia -resolved. -duonebs PRN -monitor respiratory status . History of atrial fibrillation and IHSS -currently in afib, thrombus in left atrial appendage, on Xarelto -pt for elective cardioversion after 1 month of anticoagulation. . CHF (congestive heart failure) - diastolic CHF Echo (11/23/2014) showing abnormal relaxation pattern as well as decrease in EF (45-50%). - Coreg 3.125mg BID/ Lasix 20mg as per cardiology - Potassium 20meq daily/simvastatin 20meq qhs . DVT prophylaxis -xarelto. . Hypertension Chronic, stable. - coreg/lasix , as per cardio, monitor BP . Biplolar disorder -risperdal 0.25 qhs <Rosas Pathak - Last Filed: 08/13/16 15:38> Objective - Vital Signs/Intake and Output Vital Signs (last 24 hours): Temp Pulse Resp BP Pulse Ox 98.1 F 60 20 141/68 95 08/13/16 09:00 08/13/16 09:00 08/13/16 09:00 08/13/16 09:00 08/13/16 09:00 - Medications Medications: Current Medications Acetaminophen (Tylenol 325mg Tab) 650 mg PO Q4 PRN PRN Reason: Pain, Mild (1-3) Albuterol/Ipratropium (Duoneb 3 Mg/0.5 Mg (3 Ml) Ud) 3 ml INH QID PRN PRN Reason: Wheezing Atorvastatin Calcium (Lipitor) 10 mg PO HS [facility] Last Admin: 08/12/16 21:51 Dose: 10 mg Carvedilol (Coreg) 3.125 mg PO Q12 [facility] Last Admin: 08/13/16 08:51 Dose: 3.125 mg Furosemide (Lasix) 20 mg PO DAILY [facility] Last Admin: 08/13/16 08:53 Dose: 20 mg Guaifenesin/Dextromethorphan (Mucinex-Dm 600-30 Mg) 1 tab PO BID [facility] Last Admin: 08/13/16 08:54 Dose: 1 tab Potassium Chloride (K-Dur 20 Meq Er Tab) 20 meq PO DAILY [facility] Last Admin: 08/13/16 08:53 Dose: 20 meq Risperidone (Risperdal Tab) 0.25 mg PO HS [facility] Last Admin: 08/12/16 21:51 Dose: 0.25 mg Rivaroxaban (Xarelto) 15 mg PO QD5 [facility] PRN Reason: Protocol Last Admin: 08/12/16 17:09 Dose: 15 mg - Labs Labs: 08/13/16 07:18 08/13/16 07:18 Attending/Attestation - Attestation I have personally seen and examined this patient.: Yes I have fully participated in the care of the patient.: Yes I have reviewed all pertinent clinical information, including history, physical exam and plan: Yes
[2016-08-13] MEDS: Albuterol-Ipratrop 3 mg / 0.5 (3 ml) UD INH SCH ×3 (07:24→16:20)
[2016-08-13 07:50] LABS: BASO # 0.2 K/uL (0.0-0.2); EOS # 0.4 K/uL (0.0-0.7); EOS % 4.6 % (0.0-4.0); HEMOGLOBIN 13.4 g/dL (12.0-16.0); LYMPH % 21.9 % (20.0-40.0); MEAN CELL VOLUME 91.8 fl (81.0-99.0); MEAN CORPUSCULAR HGB CONC 32.7 g/dL (33.0-37.0); MEAN PLATELET VOLUME 7.3 fl (7.2-11.7); MONO # 0.9 K/uL (0.0-0.8); MONO % 9.8 % (0.0-10.0); NEUT # 5.5 K/uL (1.8-7.0); NEUT % 61.7 % (50.0-75.0); NRBC % 0.1 % (0.0-0.0); RBC 4.47 Mil/uL (3.80-5.20); RED CELL DISTRIBUTION WIDTH 14.4 % (11.5-14.5); WHITE BLOOD COUNT 8.9 K/uL (4.8-10.8)
[2016-08-13 07:54] LABS: BLOOD UREA NITROGEN 18 mg/dl (7-17); CALCIUM 9.3 mg/dL (8.4-10.2); GFR AFRICAN-AMERICAN > 60; GFR NON-AFRICAN AMERICAN > 60
[2016-08-13] MEDS: Potassium Chloride 20 mEq ER Tab PO SCH (08:53)
[2016-08-13] MEDS: guaiFENesin-DM 600-30 mg ER Tab PO SCH ×2 (08:54→17:01)
[2016-08-13] MEDS ORDERED: Albuterol-Ipratrop 3 mg / 0.5 (3 ml) UD INH PRN (11:41)
--- NOTE | 2016-08-14 06:43 | CP.PCM.PN ---
<Sammy Ontiveros - Last Filed: 08/14/16 13:57> Subjective - Date & Time of Evaluation Date of Evaluation: 08/14/16 Time of Evaluation: 12:30 - Subjective Subjective: Patient doing well this AM. Doing well in PT. Eating well, has appetite. Denies any h/a, fevers, chest pain, difficulty breathing, abdominal pain, nausea, vomiting, diarrhea. Continue present management. Objective - Vital Signs/Intake and Output Vital Signs (last 24 hours): Temp Pulse Resp BP Pulse Ox 97.3 F L 62 20 110/63 100 08/13/16 21:31 08/13/16 22:03 08/13/16 21:31 08/13/16 22:03 08/13/16 21:31 - Medications Medications: Current Medications Acetaminophen (Tylenol 325mg Tab) 650 mg PO Q4 PRN PRN Reason: Pain, Mild (1-3) Albuterol/Ipratropium (Duoneb 3 Mg/0.5 Mg (3 Ml) Ud) 3 ml INH QID PRN PRN Reason: Wheezing Atorvastatin Calcium (Lipitor) 10 mg PO HS [facility] Last Admin: 08/13/16 22:03 Dose: 10 mg Carvedilol (Coreg) 3.125 mg PO Q12 [facility] Last Admin: 08/13/16 22:03 Dose: 3.125 mg Furosemide (Lasix) 20 mg PO DAILY [facility] Last Admin: 08/13/16 08:53 Dose: 20 mg Guaifenesin/Dextromethorphan (Mucinex-Dm 600-30 Mg) 1 tab PO BID [facility] Last Admin: 08/13/16 17:01 Dose: 1 tab Potassium Chloride (K-Dur 20 Meq Er Tab) 20 meq PO DAILY [facility] Last Admin: 08/13/16 08:53 Dose: 20 meq Risperidone (Risperdal Tab) 0.25 mg PO HS [facility] Last Admin: 08/13/16 22:03 Dose: 0.25 mg Rivaroxaban (Xarelto) 15 mg PO QD5 [facility] PRN Reason: Protocol Last Admin: 08/13/16 17:01 Dose: 15 mg - Labs Labs: 08/13/16 07:18 08/13/16 07:18 - Constitutional Appears: Non-toxic, No Acute Distress - ENT Exam ENT Exam: Mucous Membranes Moist - Respiratory Exam Respiratory Exam: NORMAL BREATHING PATTERN - Cardiovascular Exam Cardiovascular Exam: REGULAR RHYTHM - GI/Abdominal Exam Additional comments: unremarkable - Neurological Exam Neurological Exam: Alert, Awake, CN II-XII Intact, Oriented x3 - Psychiatric Exam Psychiatric exam: Normal Affect, Normal Mood - Skin Skin Exam: Dry, Intact Assessment and Plan - Assessment and Plan (Free Text) Assessment: 85 year old female admitted for CAP, with acute decompensation likely secondary to CHF and subsequent transfer to ICU. Patient has thrombus in left atrial appendage subsequently started on Xarelto. She was admitted to TCU for rehabilitation. Continue with PT. . Pneumonia . History of atrial fibrillation and IHSS . CHF (congestive heart failure) . DVT prophylaxis . Hypertension . Biplolar disorder . Pneumonia -resolved. -duonebs PRN -monitor respiratory status . History of atrial fibrillation and IHSS -stable, currently in afib, thrombus in left atrial appendage, on Xarelto -pt for elective cardioversion after 1 month of anticoagulation. . CHF (congestive heart failure) - diastolic CHF Echo (11/23/2014) showing abnormal relaxation pattern as well as decrease in EF (45-50%). - Coreg 3.125mg BID/ Lasix 20mg as per cardiology - Potassium 20meq daily/simvastatin 20meq qhs . DVT prophylaxis -xarelto. . Hypertension -Chronic, stable. - coreg/lasix , as per cardio, monitor BP . Biplolar disorder -risperdal 0.25 qhs <Rosas Pathak - Last Filed: 08/21/16 07:04> Objective - Vital Signs/Intake and Output Vital Signs (last 24 hours): Temp Pulse Resp BP Pulse Ox 97.7 F 64 20 131/71 98 08/16/16 09:00 08/16/16 09:00 08/16/16 09:00 08/16/16 09:00 08/16/16 09:00 - Labs Labs: 08/13/16 07:18 08/13/16 07:18 Attending/Attestation - Attestation I have personally seen and examined this patient.: Yes I have fully participated in the care of the patient.: Yes I have reviewed all pertinent clinical information, including history, physical exam and plan: Yes
[2016-08-14] MEDS: Potassium Chloride 20 mEq ER Tab PO SCH (08:41)
[2016-08-14] MEDS: guaiFENesin-DM 600-30 mg ER Tab PO SCH ×2 (08:41→16:46)
--- NOTE | 2016-08-14 08:46 | CP.PCM.PN ---
Subjective - Date & Time of Evaluation Date of Evaluation: 08/14/16 Time of Evaluation: 08:30 - Subjective Subjective: Sitting OOB, has fed herself Denies any symptoms, denies dyspnoea Doing well at PT Appetite good and eats well A Fib with VVI paced rhythm BP 128/64 mm Hg JVP flat, no rales, Auscultatory findings of IHSS+ Hb/HCT as well as BUN/Creatinin normal Electrolytes normal Consider D/C when can be sent home to be independent Will return to hospital for elective D.C. cardioversion Objective - Vital Signs/Intake and Output Vital Signs (last 24 hours): Temp Pulse Resp BP Pulse Ox 97.3 F L 60 20 125/71 94 L 08/14/16 08:05 08/14/16 08:05 08/14/16 08:05 08/14/16 08:05 08/14/16 08:05 - Medications Medications: Current Medications Acetaminophen (Tylenol 325mg Tab) 650 mg PO Q4 PRN PRN Reason: Pain, Mild (1-3) Albuterol/Ipratropium (Duoneb 3 Mg/0.5 Mg (3 Ml) Ud) 3 ml INH QID PRN PRN Reason: Wheezing Atorvastatin Calcium (Lipitor) 10 mg PO HS [facility] Last Admin: 08/13/16 22:03 Dose: 10 mg Carvedilol (Coreg) 3.125 mg PO Q12 [facility] Last Admin: 08/13/16 22:03 Dose: 3.125 mg Furosemide (Lasix) 20 mg PO DAILY [facility] Last Admin: 08/13/16 08:53 Dose: 20 mg Guaifenesin/Dextromethorphan (Mucinex-Dm 600-30 Mg) 1 tab PO BID [facility] Last Admin: 08/13/16 17:01 Dose: 1 tab Potassium Chloride (K-Dur 20 Meq Er Tab) 20 meq PO DAILY [facility] Last Admin: 08/13/16 08:53 Dose: 20 meq Risperidone (Risperdal Tab) 0.25 mg PO HS [facility] Last Admin: 08/13/16 22:03 Dose: 0.25 mg Rivaroxaban (Xarelto) 15 mg PO QD5 [facility] PRN Reason: Protocol Last Admin: 08/13/16 17:01 Dose: 15 mg - Labs Labs: 08/13/16 07:18 08/13/16 07:18
[2016-08-15] MEDS: guaiFENesin-DM 600-30 mg ER Tab PO SCH ×2 (08:26→17:20)
[2016-08-15] MEDS: Potassium Chloride 20 mEq ER Tab PO SCH (08:26)
--- NOTE | 2016-08-15 16:26 | CP.PCM.PN ---
<Sammy Ontiveros - Last Filed: 08/15/16 16:27> Subjective - Date & Time of Evaluation Date of Evaluation: 08/15/16 Time of Evaluation: 07:15 - Subjective Subjective: No acute events. Pt feels well. Doing well in PT. Tolerating diet. Denies chest pain, dyspnea, nausea, vomiting, abdominal pain, diarrhea/ constipation. Objective - Vital Signs/Intake and Output Vital Signs (last 24 hours): Temp Pulse Resp BP Pulse Ox 97.5 F L 60 20 124/95 H 98 08/15/16 07:58 08/15/16 08:26 08/15/16 07:58 08/15/16 08:26 08/15/16 07:58 - Medications Medications: Current Medications Acetaminophen (Tylenol 325mg Tab) 650 mg PO Q4 PRN PRN Reason: Pain, Mild (1-3) Albuterol/Ipratropium (Duoneb 3 Mg/0.5 Mg (3 Ml) Ud) 3 ml INH QID PRN PRN Reason: Wheezing Atorvastatin Calcium (Lipitor) 10 mg PO HS [facility] Last Admin: 08/14/16 21:21 Dose: 10 mg Carvedilol (Coreg) 3.125 mg PO Q12 [facility] Last Admin: 08/15/16 08:26 Dose: 3.125 mg Furosemide (Lasix) 20 mg PO DAILY [facility] Last Admin: 08/15/16 08:26 Dose: 20 mg Guaifenesin/Dextromethorphan (Mucinex-Dm 600-30 Mg) 1 tab PO BID [facility] Last Admin: 08/15/16 08:26 Dose: 1 tab Potassium Chloride (K-Dur 20 Meq Er Tab) 20 meq PO DAILY [facility] Last Admin: 08/15/16 08:26 Dose: 20 meq Risperidone (Risperdal Tab) 0.25 mg PO HS [facility] Last Admin: 08/14/16 21:21 Dose: 0.25 mg Rivaroxaban (Xarelto) 15 mg PO QD5 [facility] PRN Reason: Protocol Last Admin: 08/14/16 16:46 Dose: 15 mg - Labs Labs: 08/13/16 07:18 08/13/16 07:18 - Constitutional Appears: Well, Non-toxic - ENT Exam ENT Exam: Mucous Membranes Moist - Respiratory Exam Respiratory Exam: NORMAL BREATHING PATTERN - Cardiovascular Exam Cardiovascular Exam: +S1, +S2. absent: Bradycardia, Tachycardia - GI/Abdominal Exam GI & Abdominal Exam: Soft. absent: Distended, Tenderness - Neurological Exam Neurological Exam: Alert, Awake, CN II-XII Intact - Psychiatric Exam Psychiatric exam: Normal Affect, Normal Mood - Skin Skin Exam: Dry, Intact Assessment and Plan - Assessment and Plan (Free Text) Assessment: 85 year old female admitted for CAP, with acute decompensation likely secondary to CHF and subsequent transfer to ICU. Patient has thrombus in left atrial appendage subsequently started on Xarelto. As per SW note pt to be discharged tomorrow. . Pneumonia . History of atrial fibrillation and IHSS . CHF (congestive heart failure) . DVT prophylaxis . Hypertension . Biplolar disorder . Pneumonia -resolved. -duonebs PRN -monitor respiratory status . History of atrial fibrillation and IHSS -stable, currently in afib, thrombus in left atrial appendage, on Xarelto -pt for elective cardioversion after 1 month of anticoagulation. . CHF (congestive heart failure) - diastolic CHF Echo (11/23/2014) showing abnormal relaxation pattern as well as decrease in EF (45-50%). - Coreg 3.125mg BID/ Lasix 20mg as per cardiology - Potassium 20meq daily/simvastatin 20meq qhs . DVT prophylaxis -xarelto. . Hypertension -Chronic, stable. - coreg/lasix , as per cardio, monitor BP . Biplolar disorder -risperdal 0.25 qhs <Asim Gooden - Last Filed: 08/16/16 06:42> Objective - Vital Signs/Intake and Output Vital Signs (last 24 hours): Temp Pulse Resp BP Pulse Ox 98.2 F 60 20 124/62 95 08/15/16 21:07 08/15/16 21:25 08/15/16 21:07 08/15/16 21:25 08/15/16 21:07 - Medications Medications: Current Medications Acetaminophen (Tylenol 325mg Tab) 650 mg PO Q4 PRN PRN Reason: Pain, Mild (1-3) Albuterol/Ipratropium (Duoneb 3 Mg/0.5 Mg (3 Ml) Ud) 3 ml INH QID PRN PRN Reason: Wheezing Atorvastatin Calcium (Lipitor) 10 mg PO HS [facility] Last Admin: 08/15/16 21:25 Dose: 10 mg Carvedilol (Coreg) 3.125 mg PO Q12 [facility] Last Admin: 08/15/16 21:25 Dose: 3.125 mg Furosemide (Lasix) 20 mg PO DAILY [facility] Last Admin: 08/15/16 08:26 Dose: 20 mg Guaifenesin/Dextromethorphan (Mucinex-Dm 600-30 Mg) 1 tab PO BID [facility] Last Admin: 08/15/16 17:20 Dose: 1 tab Potassium Chloride (K-Dur 20 Meq Er Tab) 20 meq PO DAILY [facility] Last Admin: 08/15/16 08:26 Dose: 20 meq Risperidone (Risperdal Tab) 0.25 mg PO HS [facility] Last Admin: 08/15/16 21:25 Dose: 0.25 mg Rivaroxaban (Xarelto) 15 mg PO QD5 [facility] PRN Reason: Protocol Last Admin: 08/15/16 17:20 Dose: 15 mg - Labs Labs: 08/13/16 07:18 08/13/16 07:18 Assessment and Plan (1) Acute systolic CHF (congestive heart failure) Status: Acute (2) Atrial fibrillation with rapid ventricular response Status: Acute (3) Chills (without fever) Status: Acute (4) DVT prophylaxis Status: Acute (5) Diarrhea Status: Acute (6) Hypertrophic cardiomyopathy Status: Acute (7) Pneumonia Status: Acute (8) A-fib Status: Chronic (9) CAD (coronary artery disease) Status: Chronic (10) History of atrial fibrillation Status: Chronic (11) Hypertension Status: Chronic Attending/Attestation - Attestation I have personally seen and examined this patient.: Yes I have fully participated in the care of the patient.: Yes I have reviewed all pertinent clinical information, including history, physical exam and plan: Yes
[2016-08-16 08:20] VITALS: BP 131/71; PULSE 64; TEMP 97.7; O2SAT 98
[2016-08-16] MEDS: guaiFENesin-DM 600-30 mg ER Tab PO SCH (08:51)
[2016-08-16] MEDS: Potassium Chloride 20 mEq ER Tab PO SCH (08:53)
--- NOTE | 2016-08-16 09:56 | CP.PCM.PN ---
Subjective - Date & Time of Evaluation Date of Evaluation: 08/16/16 Time of Evaluation: 09:40 - Subjective Subjective: Has progressed well on PT Fairly inependent and stable on her feet with a walker No overt volume over load on present Rx On Rivaroxaban daily Plan elective D.C. Cardioversion by mid August Pt will call me. Objective - Vital Signs/Intake and Output Vital Signs (last 24 hours): Temp Pulse Resp BP Pulse Ox 97.7 F 64 20 131/71 98 08/16/16 08:19 08/16/16 08:52 08/16/16 08:19 08/16/16 08:52 08/16/16 08:19 - Medications Medications: Current Medications Acetaminophen (Tylenol 325mg Tab) 650 mg PO Q4 PRN PRN Reason: Pain, Mild (1-3) Albuterol/Ipratropium (Duoneb 3 Mg/0.5 Mg (3 Ml) Ud) 3 ml INH QID PRN PRN Reason: Wheezing Atorvastatin Calcium (Lipitor) 10 mg PO HS [facility] Last Admin: 08/15/16 21:25 Dose: 10 mg Carvedilol (Coreg) 3.125 mg PO Q12 [facility] Last Admin: 08/16/16 08:52 Dose: 3.125 mg Furosemide (Lasix) 20 mg PO DAILY [facility] Last Admin: 08/16/16 08:52 Dose: 20 mg Guaifenesin/Dextromethorphan (Mucinex-Dm 600-30 Mg) 1 tab PO BID [facility] Last Admin: 08/16/16 08:51 Dose: 1 tab Potassium Chloride (K-Dur 20 Meq Er Tab) 20 meq PO DAILY [facility] Last Admin: 08/16/16 08:53 Dose: 20 meq Risperidone (Risperdal Tab) 0.25 mg PO HS [facility] Last Admin: 08/15/16 21:25 Dose: 0.25 mg Rivaroxaban (Xarelto) 15 mg PO QD5 [facility] PRN Reason: Protocol Last Admin: 08/15/16 17:20 Dose: 15 mg - Labs Labs: 08/13/16 07:18 08/13/16 07:18
--- NOTE | 2016-08-16 10:10 | CP.PCM.DIS ---
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 Priority: High Hospital Course - Lab Results Lab Results: Most Recent Lab Values WBC 8.9 K/uL (4.8-10.8) 08/13/16 07:18 RBC 4.47 Mil/uL (3.80-5.20) 08/13/16 07:18 Hgb 13.4 g/dL (12.0-16.0) 08/13/16 07:18 Hct 41.0 % (34.0-47.0) 08/13/16 07:18 MCV 91.8 fl (81.0-99.0) 08/13/16 07:18 MCH 30.0 pg (27.0-31.0) 08/13/16 07:18 MCHC 32.7 g/dL (33.0-37.0) L 08/13/16 07:18 RDW 14.4 % (11.5-14.5) 08/13/16 07:18 Plt Count 573 K/uL (130-400) H 08/13/16 07:18 MPV 7.3 fl (7.2-11.7) 08/13/16 07:18 Neut % (Auto) 61.7 % (50.0-75.0) 08/13/16 07:18 Lymph % (Auto) 21.9 % (20.0-40.0) 08/13/16 07:18 [place] % (Auto) 9.8 % (0.0-10.0) 08/13/16 07:18 Eos % (Auto) 4.6 % (0.0-4.0) H 08/13/16 07:18 Baso % (Auto) 2.0 % (0.0-2.0) 08/13/16 07:18 Neut # 5.5 K/uL (1.8-7.0) 08/13/16 07:18 Lymph # 2.0 K/uL (1.0-4.3) 08/13/16 07:18 [place] # 0.9 K/uL (0.0-0.8) H 08/13/16 07:18 Eos # 0.4 K/uL (0.0-0.7) 08/13/16 07:18 Baso # 0.2 K/uL (0.0-0.2) 08/13/16 07:18 Sodium 142 mmol/l (132-148) 08/13/16 07:18 Potassium 4.3 MMOL/L (3.6-5.0) 08/13/16 07:18 Chloride 106 mmol/L (98-107) 08/13/16 07:18 Carbon Dioxide 25 mmol/L (22-30) 08/13/16 07:18 Anion Gap 15 (10-20) 08/13/16 07:18 BUN 18 mg/dl (7-17) H 08/13/16 07:18 Creatinine 0.8 mg/dL (0.7-1.2) 08/13/16 07:18 Est GFR ( Amer) > 60 08/13/16 07:18 Est GFR (Non-Af Amer) > 60 08/13/16 07:18 Random Glucose 75 mg/dL (65-105) 08/13/16 07:18 Calcium 9.3 mg/dL (8.4-10.2) 08/13/16 07:18 - Hospital Course Hospital Course: 85 year old female admitted for CAP, with subsequent acute decompenstation secondary to AFIB. Patient was subsequently transfered to ICU. where she was treated for hospital acquired pnemonia, with IV antibiotics. Patient has a thrombus in left atrial appendage and was subsequently started on Xarelto. She was admitted to TCU for rehabilitation. She has done well with physical therapy. She requires anticoagulation until mid August. She will then be scheduled for elective cardioversion. Patient has follow up appointment on Friday August 19, 2016. Resume home medications. Rx for Xarelto sent to pts pharmacy. [facility] in [place] [address] Discharge Exam - Head Exam Head Exam: NORMAL INSPECTION - Eye Exam Eye Exam: Normal appearance - ENT Exam ENT Exam: Mucous Membranes Moist - Respiratory Exam Respiratory Exam: NORMAL BREATHING PATTERN - Cardiovascular Exam Cardiovascular Exam: +S1, +S2. absent: Bradycardia, Tachycardia, Rubs - GI/Abdominal Exam GI & Abdominal Exam: Unremarkable - Neurological Exam Neurological exam: Alert, CN II-XII Intact - Psychiatric Exam Psychiatric exam: Normal Affect, Normal Mood - Skin Skin Exam: Dry, Intact Discharge Plan - Discharge Medications Prescriptions: Rivaroxaban [Xarelto] 15 mg PO DAILY #30 tab - Follow Up Plan Condition: GOOD Disposition: HOME/ ROUTINE <GiacomoAsim Mehran - Last Filed: 08/19/16 06:28> Provider - Provider Date of Admission: 08/08/16 13:24 Attending physician: Rosas Pathak MD Diagnosis - Discharge Diagnosis (1) Acute systolic CHF (congestive heart failure) Status: Acute (2) Atrial fibrillation with rapid ventricular response Status: Acute Priority: High (3) Chills (without fever) Status: Acute (4) DVT prophylaxis Status: Acute (5) Diarrhea Status: Acute (6) Hypertrophic cardiomyopathy Status: Acute (7) Pneumonia Status: Acute (8) A-fib Status: Chronic (9) CAD (coronary artery disease) Status: Chronic (10) History of atrial fibrillation Status: Chronic (11) Hypertension Status: Chronic Hospital Course - Lab Results Lab Results: Most Recent Lab Values WBC 8.9 K/uL (4.8-10.8) 08/13/16 07:18 RBC 4.47 Mil/uL (3.80-5.20) 08/13/16 07:18 Hgb 13.4 g/dL (12.0-16.0) 08/13/16 07:18 Hct 41.0 % (34.0-47.0) 08/13/16 07:18 MCV 91.8 fl (81.0-99.0) 08/13/16 07:18 MCH 30.0 pg (27.0-31.0) 08/13/16 07:18 MCHC 32.7 g/dL (33.0-37.0) L 08/13/16 07:18 RDW 14.4 % (11.5-14.5) 08/13/16 07:18 Plt Count 573 K/uL (130-400) H 08/13/16 07:18 MPV 7.3 fl (7.2-11.7) 08/13/16 07:18 Neut % (Auto) 61.7 % (50.0-75.0) 08/13/16 07:18 Lymph % (Auto) 21.9 % (20.0-40.0) 08/13/16 07:18 [place] % (Auto) 9.8 % (0.0-10.0) 08/13/16 07:18 Eos % (Auto) 4.6 % (0.0-4.0) H 08/13/16 07:18 Baso % (Auto) 2.0 % (0.0-2.0) 08/13/16 07:18 Neut # 5.5 K/uL (1.8-7.0) 08/13/16 07:18 Lymph # 2.0 K/uL (1.0-4.3) 08/13/16 07:18 [place] # 0.9 K/uL (0.0-0.8) H 08/13/16 07:18 Eos # 0.4 K/uL (0.0-0.7) 08/13/16 07:18 Baso # 0.2 K/uL (0.0-0.2) 08/13/16 07:18 Sodium 142 mmol/l (132-148) 08/13/16 07:18 Potassium 4.3 MMOL/L (3.6-5.0) 08/13/16 07:18 Chloride 106 mmol/L (98-107) 08/13/16 07:18 Carbon Dioxide 25 mmol/L (22-30) 08/13/16 07:18 Anion Gap 15 (10-20) 08/13/16 07:18 BUN 18 mg/dl (7-17) H 08/13/16 07:18 Creatinine 0.8 mg/dL (0.7-1.2) 08/13/16 07:18 Est GFR ( Amer) > 60 08/13/16 07:18 Est GFR (Non-Af Amer) > 60 08/13/16 07:18 Random Glucose 75 mg/dL (65-105) 08/13/16 07:18 Calcium 9.3 mg/dL (8.4-10.2) 08/13/16 07:18 Attending/Attestation - Attestation I have personally seen and examined this patient.: Yes I have fully participated in the care of the patient.: Yes I have reviewed all pertinent clinical information, including history, physical exam and plan: Yes
== END 2016-08-16 13:05 | disposition home or self-care (01) | DRG 194 ==
LOC: H.TCU 13:24
PROVIDERS: ADMIT Family Medicine; ATTEND Family Medicine
PROC: F07Z9FZ Gait Training/Functional Ambulation Treatment using Assistive, Adaptive, Supportive or Protective Equipment (ICD-10-PCS; principal; 2016-08-08)
PROC: F07L6FZ Therapeutic Exercise Treatment of Musculoskeletal System - Lower Back / Lower Extremity using Assistive, Adaptive, Supportive or Protective Equipment (ICD-10-PCS; 2016-08-08)
PROC: F08Z4FZ Home Management Treatment using Assistive, Adaptive, Supportive or Protective Equipment (ICD-10-PCS; 2016-08-08)
PROC: 5A0955Z Assistance with Respiratory Ventilation, Greater than 96 Consecutive Hours (ICD-10-PCS; 2016-08-08)
DX: J18.9 Pneumonia, unspecified organism (principal); I50.32 Chronic diastolic (congestive) heart failure; I11.0 Hypertensive heart disease with heart failure; I42.1 Obstructive hypertrophic cardiomyopathy; I48.2 Chronic atrial fibrillation; F31.9 Bipolar disorder, unspecified; I25.10 Atherosclerotic heart disease of native coronary artery without angina pectoris; Z95.5 Presence of coronary angioplasty implant and graft; Z95.0 Presence of cardiac pacemaker; Z95.810 Presence of automatic (implantable) cardiac defibrillator; Z79.01 Long term (current) use of anticoagulants; I25.2 Old myocardial infarction; I51.3 Intracardiac thrombosis, not elsewhere classified; R19.7 Diarrhea, unspecified

== ENCOUNTER 2016-09-12 10:16 | Observation (INO) | payer MEDICARE ==
[2016-09-11 11:06] VITALS: BMI 29.2
--- NOTE | 2016-09-12 11:07 | CP.PCM.PN ---
Subjective - Date & Time of Evaluation Date of Evaluation: 09/12/16 Time of Evaluation: 10:45 - Subjective Subjective: Patient seen in [facility] Pt with IHSS and an AICD Developed A fib in July and a GLORY showed Lt atrial appendage clot Pt has taken Xarelto for a month Now here for D.C. cardioversion Has no orthopnoea or pedal oedema or dizzy spells Pt resting comfortably, Breathes at 16 BPM HR 60 BPM has syst murmur of IHSS, S2 preserved No gallop, no rales EKG today still shows A Fib with VVI paced rhythm Pt stable for cardioversion Spoke with Dr. Turner Objective - Vital Signs/Intake and Output Vital Signs (last 24 hours): Temp Pulse Resp BP Pulse Ox 97.7 F 61 18 139/62 96 09/12/16 10:51 09/12/16 10:51 09/12/16 10:51 09/12/16 10:51 09/12/16 10:51
[2016-09-12 11:56] LABS: HEMOGLOBIN 13.8 g/dL (12.0-16.0); MEAN CELL VOLUME 92.1 fl (81.0-99.0); MEAN CORPUSCULAR HGB CONC 32.6 g/dL (33.0-37.0); RBC 4.58 Mil/uL (3.80-5.20); RED CELL DISTRIBUTION WIDTH 15.1 % (11.5-14.5)
[2016-09-12 12:07] LABS: ALB/GLOB RATIO 1.3 (1.0-2.1); ALBUMIN 3.8 g/dL (3.5-5.0); ALT/SGPT 33 U/L (9-52); AST/SGOT 19 U/L (14-36); BLOOD UREA NITROGEN 18 mg/dl (7-17); CALCIUM 9.1 mg/dL (8.4-10.2); GFR AFRICAN-AMERICAN > 60; GFR NON-AFRICAN AMERICAN > 60
[2016-09-12 12:22] LABS: T4 10.6 ug/dl (5.5-11.0)
[2016-09-12 12:36] LABS: T3 1.16 nmol/L (1.49-2.60)
[2016-09-12] MEDS ORDERED: Propofol 10 mg/ml Inj (20 ML) ONE (13:03)
[2016-09-12] MEDS ORDERED: Etomidate 20 mg/10ml Inj IV ONE (13:04)
[2016-09-12] MEDS ORDERED: ePHEDrine 50 mg/ml Inj ONE (13:04)
[2016-09-12] MEDS ORDERED: Midazolam 2 MG/2 ML VIAL ONE (13:04)
[2016-09-12] MEDS ORDERED: Succinylcholine 200 mg/10 ml Inj IV ONE (13:08)
[2016-09-12] MEDS ORDERED: Phenylephrine 10 mg/ml Inj ONE (13:08)
--- NOTE | 2016-09-12 14:19 | PCM.OP ---
Operative Report - Operative Report Date of Surgery/Procedure: 09/12/16 Time of Surgery/Procedure: 02:00 Surgeon: João Wiseman Anesthesia/Sedation: Anesthesia/ Consious sedation was provided by the STAFF Anesthesiologist Pre-Operative Diagnosis: Atrial Fibrillation Post-Operative Diagnosis: Normal sinus rhythm following cardioversion Indication for Surgery: Atrial fibrillation Operative Findings: Patient present atrial fibrillation and ventricularly paced rhythm. Procedure/Operation Description: Patient with past medical history of hypertension, hypertrophic cardiomyopathy, atrial fibrillation presents for cardioversion. She was admitted for respiratory failure and atrail fibrillation last month. GLORY at the time had finding of possible left atrial appendage thrombus. She was continued on AC with Xarelto. CARDIOVERSION was performed without incident. Normal sinus rhytm was achieved. KIMBERLY DEVICE ( DUAL CHAMBER AICD) was reprogrammed to DDDR 60-100 Estimated Blood Loss: None Complications: None Discharge & Condition: Patient to be admitted under Dr. DUNN for Amiodarone load and observation on TELE.
[2016-09-13 05:15] VITALS: RESP 18
--- NOTE | 2016-09-13 08:42 | CP.PCM.DIS ---
Provider - Provider Date of Admission: 09/12/16 16:43 Attending physician: Joe Rodriguez MD Primary care physician: Asim Gooden MD Consults: Dr. Turner Time Spent in preparation of Discharge (in minutes): 30 Hospital Course - Lab Results Lab Results: Most Recent Lab Values WBC 8.0 K/uL (4.8-10.8) 09/12/16 11:40 RBC 4.58 Mil/uL (3.80-5.20) 09/12/16 11:40 Hgb 13.8 g/dL (12.0-16.0) 09/12/16 11:40 Hct 42.2 % (34.0-47.0) 09/12/16 11:40 MCV 92.1 fl (81.0-99.0) 09/12/16 11:40 MCH 30.0 pg (27.0-31.0) 09/12/16 11:40 MCHC 32.6 g/dL (33.0-37.0) L 09/12/16 11:40 RDW 15.1 % (11.5-14.5) H 09/12/16 11:40 Plt Count 316 K/uL (130-400) D 09/12/16 11:40 Sodium 143 mmol/l (132-148) 09/12/16 11:40 Potassium 4.5 MMOL/L (3.6-5.0) 09/12/16 11:40 Chloride 107 mmol/L (98-107) 09/12/16 11:40 Carbon Dioxide 27 mmol/L (22-30) 09/12/16 11:40 Anion Gap 14 (10-20) 09/12/16 11:40 BUN 18 mg/dl (7-17) H 09/12/16 11:40 Creatinine 0.8 mg/dL (0.7-1.2) 09/12/16 11:40 Est GFR ( Amer) > 60 09/12/16 11:40 Est GFR (Non-Af Amer) > 60 09/12/16 11:40 Random Glucose 81 mg/dL (65-105) 09/12/16 11:40 Calcium 9.1 mg/dL (8.4-10.2) 09/12/16 11:40 Total Bilirubin 0.8 mg/dl (0.2-1.3) 09/12/16 11:40 AST 19 U/L (14-36) 09/12/16 11:40 ALT 33 U/L (9-52) 09/12/16 11:40 Alkaline Phosphatase 102 U/L (38-126) 09/12/16 11:40 Total Protein 6.8 G/DL (6.3-8.2) 09/12/16 11:40 Albumin 3.8 g/dL (3.5-5.0) 09/12/16 11:40 Globulin 3.0 gm/dL (2.2-3.9) 09/12/16 11:40 Albumin/Globulin Ratio 1.3 (1.0-2.1) 09/12/16 11:40 Thyroxine (T4) 10.6 ug/dl (5.5-11.0) 09/12/16 11:40 Total T3 1.16 nmol/L (1.49-2.60) L 09/12/16 11:40 TSH 3rd Generation 2.52 mIU/ML (0.46-4.68) 09/12/16 11:40 - Hospital Course Hospital Course: This 85-year-old female was brought into the hospital for elective DC cardioversion. She had developed atrial fibrillation approximately a month back and a GLORY at that point and showed evidence of a left atrial thrombus in the left atrial appendage. She was given oral anticoagulation for a month and brought back electively for a DC cardioversion. The patient successfully underwent DC cardioversion under IV sedation with a shock of 100 juoles which she tolerated quite well. She was given an intravenous infusion of amiodarone. She was monitored on telemetry overnight. This morning the patient was found comfortably resting in bed with no symptoms. Her respiratory rate was 14 breaths per minute and her blood pressure was 124/ 70 mmHg. Telemetry showed steady sinus rhythm with atrial paced and ventricular sensed rhythm. Her cardiac auscultation again demonstrated evidence of IHSS. The patient is being sent home on her medications including Xarelto 20 mg every day and amiodarone 200 mg twice a day along with the rest of her medications. She will return to see me in the office in 2 weeks. Her final diagnosis was atrial fibrillation with IHSS, status post AICD implant. 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 Discharge Plan - Follow Up Plan Condition: GOOD Disposition: HOME/ ROUTINE Referrals: Asim Gooden MD [Primary Care Provider] -
--- NOTE | 2016-09-13 10:06 | CARD ---
APPROVED REPORT EKG Measurement Heart [id number] <Conclusion> Atrial-sensed ventricular-paced rhythm with prolonged AV conduction Abnormal ECG
--- NOTE | 2016-09-13 10:20 | CARD ---
APPROVED REPORT EKG Measurement Heart [id number] <Conclusion> Atrial-sensed ventricular-paced rhythm with prolonged AV conduction Abnormal ECG
--- NOTE | 2016-09-13 10:21 | CARD ---
APPROVED REPORT EKG Measurement Heart [id number] <Conclusion> Ventricular-paced rhythm with premature ventricular or aberrantly conducted complexes Abnormal ECG
[2016-09-13 12:09] VITALS: BP 146/74; PULSE 71; TEMP 98.5; O2SAT 97
== END 2016-09-13 13:30 | disposition home or self-care (01) ==
LOC: H.OPSURG 10:16 → EDSTATUS 13:00 → H.TEL 16:43 → INTOOBSV 16:43
PROVIDERS: ADMIT Internal Medicine Cardiovascular Disease; ATTEND Internal Medicine Cardiovascular Disease
DX: I48.91 Unspecified atrial fibrillation (principal); I25.2 Old myocardial infarction; I25.10 Atherosclerotic heart disease of native coronary artery without angina pectoris; I10 Essential (primary) hypertension; I42.2 Other hypertrophic cardiomyopathy; Z95.810 Presence of automatic (implantable) cardiac defibrillator
CPT/HCPCS: 36415; 80053; 84436; 84443; 84480; 85027; 92960; 93005; G0378; J0282; J0330; J2250; J2370; J2704; J7060

== ENCOUNTER 2016-10-28 14:46 | Inpatient (IN) | payer MEDICARE ==
[2016-10-28 14:46] VITALS: PULSE 161; BMI 29.2
[2016-10-28] MEDS ORDERED: Albuterol 0.083% Inhal Sol (2.5 mg/3 mL) UD INH ONE (15:46)
--- NOTE | 2016-10-28 15:52 | ED PDOC ---
HPI: SOB/CHF/COPD <Kelvin Birmingham Y - Last Filed: 10/28/16 17:06> History Per: Patient (PT is an 85 yo female with PMHx of Hypertrophic Cardiomyopathy, Afibb, CAD, diastolic CHF s/p AICD, HLD, HTN, and diverticulosis presents to ED with a 2 day history of cough associated with SOB. She reports having a worsening cough that began 2 days ago with minumal sputum production associated with SOB and wheezing. She states that she took 2 tylenol which did not relieve her symptoms. She denies fever, chills, chest pain , palpatations, n/v, abdominal pain, LE swelling, or abdominal swelling. ) History/Exam Limitations: no limitations Current Symptoms Are (Timing): Still Present <Neeraj Wisdom - Last Filed: 10/28/16 17:55> Time Seen by Provider: 10/28/16 15:03 Chief Complaint (Nursing): Shortness Of Breath Past Medical History <Kelvin Birmingham Y - Last Filed: 10/28/16 17:06> - Medical History PMH: Anxiety, Arthritis, Atrial Fibrillation, CAD, Cardia Arrhythmia, CHF, Depression, Diverticulitis, Fractures (right knee patella), HTN, Hypercholesterolemia, Pneumonia, Schizophrenia Denies: Anemia, HIV, Chronic Kidney Disease - Surgical History Surgical History: Pacemaker - Family History Family History: States: Unknown Family Hx, Hypertension - Immunization History Hx Tetanus Toxoid Vaccination: No Hx Influenza Vaccination: No Hx Pneumococcal Vaccination: No <Neeraj Wisdom - Last Filed: 10/28/16 17:55> Vital Signs: Last Vital Signs Temp 97.5 F L 10/28/16 14:53 Pulse 63 10/28/16 16:29 Resp 19 10/28/16 16:29 BP 135/49 L 10/28/16 16:29 Pulse Ox 93 L 10/28/16 17:55 - Home Medications Home Medications: Ambulatory Orders Medication Instructions Recorded Carvedilol [Coreg] 3.125 mg PO BID 07/18/15 Furosemide [Lasix] 20 mg PO DAILY 07/18/15 Potassium Chloride [K-Dur 20 mEq 20 meq PO DAILY 07/18/15 ER Tab] Simvastatin 20 mg PO DAILY 07/18/15 risperiDONE [RisperDAL Tab] 0.25 mg PO HS tab 08/08/16 Rivaroxaban [Xarelto] 15 mg PO DAILY #30 tab 08/16/16 - Allergies Allergies/Adverse Reactions: Allergies Allergy/AdvReac Type Severity Reaction Status Date / Time No Known Allergies Allergy Verified 08/08/16 13:26 Review of Systems Constitutional: Positive for: Weakness. Negative for: Fever, Chills ENT: Positive for: Nose Congestion Cardiovascular: Negative for: Chest Pain, Palpitations, Orthopnea, Edema Respiratory: Positive for: Cough, Shortness of Breath, Wheezing. Negative for: Hemoptysis, SOB with Exertion, Pleuritic Pain Gastrointestinal: Negative for: Nausea, Vomiting, Abdominal Pain Genitourinary Female: Negative for: Dysuria Neurological: Positive for: Weakness. Negative for: Confusion <Neeraj Wisdom - Last Filed: 10/28/16 17:55> Physical Exam - Reviewed Nursing Documentation Reviewed: Yes Vital Signs Reviewed: Yes - Physical Exam Appears: Positive for: Well, Non-toxic. Negative for: In Acute Distress Head Exam: Positive for: ATRAUMATIC, NORMAL INSPECTION, NORMOCEPHALIC Skin: Positive for: Normal Color, Warm, DRY Eye Exam: Positive for: EOMI, Normal appearance, PERRL ENT: Positive for: Normal ENT Inspection Neck: Positive for: Normal, Painless ROM Cardiovascular/Chest: Positive for: Regular Rate, Rhythm. Negative for: Chest Non Tender, Murmur Respiratory: Positive for: Rhonchi, Stridor, Wheezing (Diffuse end expiratory wheezing), Respiratory Distress (Mildly labored breathing when speaking; otherwise comfortable ), Other. Negative for: Crackles, Rales, Plerual Rub Pulses-Radial (L): 2+ Pulses-Radial (R): 2+ Gastrointestinal/Abdominal: Positive for: Normal Exam, Bowel Sounds, Soft. Negative for: Tenderness Back: Positive for: Normal Inspection Extremity: Positive for: Normal ROM. Negative for: Pedal Edema, Calf Tenderness , Swelling Neurologic/Psych: Positive for: Alert, Oriented <Neeraj Wisdom - Last Filed: 10/28/16 17:55> - Laboratory Results Result Diagrams: 10/28/16 16:12 10/28/16 16:12 <Kelvin Birmingham - Last Filed: 10/28/16 17:06> - Laboratory Results Result Diagrams: 10/28/16 16:12 10/28/16 16:12 - ECG O2 Sat by Pulse Oximetry: 93 - Progress Re-evaluation Time: 17:51 (Pt seen lying in bed. States that her breathing is slightly improved from before. Still coughing intermittently. ) Condition: Improving,but remains with symptoms <Neeraj Wisdom - Last Filed: 10/28/16 17:55> Medical Decision Making <Kelvin Birmingham Y - Last Filed: 10/28/16 17:06> <Neeraj Wisdom - Last Filed: 10/28/16 17:55> Medical Decision Making: Time: 16:50 Chest X-Ray: FINDINGS: LUNGS: No active pulmonary disease. PLEURA: No significant pleural effusion identified, no pneumothorax apparent. CARDIOVASCULAR: No radiographic findings to suggest acute or significant cardiovascular disease. Position/ configuration of pacemaker\AICD device: Satisfactory. OSSEOUS STRUCTURES: No significant abnormalities. VISUALIZED UPPER ABDOMEN: Normal. OTHER FINDINGS: None. IMPRESSION: No active disease. No significant interval change compared to the prior examination(s). --Patient seen w/ resident, and has cardiac history, comes in today with cough and wheezing --Given nebulizer treatments and is now pending cardiac work up to r/o pneumonia and cardiac event Time: 17:00 --Signed out to Dr. Hailey Medrano MD, pending work up and final disposition (Kelvin Birmingham) 85 yo female with PMHx of Afibb, diastolic CHF s/p AICD, CAD, HLD, HTN, and Diverticulosis presents to ED with 2 day history of cough association with SOB and wheezing. Will be admitted for management of acute CHF exacerbation. ED Course: Albuterol nebulizer x1 Lasix 40mg IV x1 CBC CMP BNP - 14,600 Troponin EKG Cxray (Neeraj Wisdom) Disposition <Kelvin Birmingham Y - Last Filed: 10/28/16 17:06> - Patient ED Disposition Is Patient to be Admitted: Yes - Disposition Disposition: Transfer of Care Disposition Time: 17:52 - Pt Status Changed To: Hospital Disposition Of: Inpatient - Admit Certification Admit to Inpatient:: After my assessment, the patient will require hospitalization for at least two midnights. This is because of the severity of symptoms shown, intensity of services needed, and/or the medical risk in this patient being treated as an outpatient. - POA Present On Arrival: None <Neeraj Wisdom - Last Filed: 10/28/16 17:55> - Clinical Impression Clinical Impression: Chronic congestive heart failure, Acute congestive heart failure - Disposition Condition: STABLE Forms: [facility] (Swedish)
[2016-10-28] MEDS ORDERED: Albuterol 0.083% Inhal Sol (2.5 mg/3 mL) UD ONE (16:25)
[2016-10-28 16:31] LABS: BASO # 0.1 K/uL (0.0-0.2); BASO % 0.6 % (0.0-2.0); EOS # 0.4 K/uL (0.0-0.7); LYMPH # 1.5 K/uL (1.0-4.3); LYMPH % 13.9 % (20.0-40.0); MEAN CELL VOLUME 90.4 fl (81.0-99.0); MEAN CORPUSCULAR HEMOGLOBIN 29.2 pg (27.0-31.0); MEAN CORPUSCULAR HGB CONC 32.2 g/dL (33.0-37.0); MEAN PLATELET VOLUME 7.8 fl (7.2-11.7); MONO # 1.3 K/uL (0.0-0.8); MONO % 12.1 % (0.0-10.0); NEUT # 7.6 K/uL (1.8-7.0); NEUT % 69.4 % (50.0-75.0); RED CELL DISTRIBUTION WIDTH 14.9 % (11.5-14.5)
[2016-10-28 16:35] LABS: ALB/GLOB RATIO 1.1 (1.0-2.1); ALKALINE PHOSPHATASE 92 U/L (38-126); ALT/SGPT 29 U/L (9-52); AST/SGOT 26 U/L (14-36); BILIRUBIN,TOTAL 0.6 mg/dl (0.2-1.3); BLOOD UREA NITROGEN 15 mg/dl (7-17); CARBON DIOXIDE 25 mmol/L (22-30); CHLORIDE 102 mmol/L (98-107); GFR AFRICAN-AMERICAN > 60; GLUCOSE,RANDOM 85 mg/dL (65-105); POTASSIUM 4.6 MMOL/L (3.6-5.0); SODIUM 139 mmol/l (132-148); TOTAL PROTEIN 7.5 G/DL (6.3-8.2)
--- NOTE | 2016-10-28 16:51 | RAD ---
HISTORY: Shortness of breath. Portable study 16:07 COMPARISON: 08/07/2016. FINDINGS: LUNGS: No active pulmonary disease. PLEURA: No significant pleural effusion identified, no pneumothorax apparent. CARDIOVASCULAR: No radiographic findings to suggest acute or significant cardiovascular disease. Position/ configuration of pacemaker device: Satisfactory. OSSEOUS STRUCTURES: No significant abnormalities. VISUALIZED UPPER ABDOMEN: Normal. OTHER FINDINGS: None. IMPRESSION: No active disease. No significant interval change compared to the prior examination(s).
--- NOTE | 2016-10-28 20:34 | CP.PCM.HP ---
<Jc Denton - Last Filed: 10/29/16 08:04> History of Present Illness - History of Present Illness History of Present Illness: CC/HPI: 85 y.o. female seen in the E.D. Pt. sent from PMD's office for evaluation of shortness of breath and cough. Pt. states she has been having a cough for past 2 days. The cough is non-productive and non-bloody but persistent. Pt. states the cough is associated with shortness of breath. The cough is perisistent and getting worse. Shortness of breath is aggravated by exertion. ROS: Pt. denies any fever, chills, chest pain, abdominal pain, headache, joint pain, nausea, vomiting, or diarrhea. PMHx: Anxiety, Arthritis, Atrial Fibrillation, CAD, Atrial Fibrillation, Diastolic CHF, Depression, Diverticulitis, Fractures (right knee patella), HTN, Hypercholesterolemia, Pneumonia, Schizophrenia, Diverticulosis, Hypertrophic Cardiomyopathy PSHx: Pacemaker/AICD placement, RT. Knee patella surgery FMHx: Not contributory [place]: NKDA Home Meds: See Med List PMD: Dr. Buster Barroso Course: Albuterol nebulizer x1 Lasix 40mg IV x1 CBC CMP BNP - 14,600 Troponin EKG Cxray Present on Admission - Present on Admission Any Indicators Present on Admission: No History of DVT/PE: No History of Uncontrolled Diabetes: No Urinary Catheter: No Decubitus Ulcer Present: No Review of Systems - Review of Systems Review of Systems: See HPI Past Patient History - Tetanus Immunizations Tetanus Immunization: Unknown - Past Medical History & Family History Past Medical History?: Yes - Past Social History Smoking Status: Never Smoked - CARDIAC Hx Cardiac Disorders: Yes - PULMONARY Hx Respiratory Disorders: Yes - NEUROLOGICAL Hx Neurological Disorder: No - HEENT Hx HEENT Problems: No - RENAL Hx Chronic Kidney Disease: No - ENDOCRINE/METABOLIC Hx Endocrine Disorders: No - HEMATOLOGICAL/ONCOLOGICAL Hx Anemia: No Hx Human Immunodeficiency Virus (HIV): No - INTEGUMENTARY Hx Dermatological Problems: No - MUSCULOSKELETAL/RHEUMATOLOGICAL Hx Arthritis: Yes Hx Fractures: Yes (right knee patella) - GASTROINTESTINAL Hx Diverticulitis: Yes - GENITOURINARY/GYNECOLOGICAL Hx Genitourinary Disorders: No - PSYCHIATRIC Hx Anxiety: Yes Hx Depression: Yes Hx Schizophrenia: Yes - SURGICAL HISTORY Hx Surgeries: Yes Other/Comment: LEFT FOOT -PATELLA SURGERYX2;PAMAKER INSERTION-3 YEARS AGO - ANESTHESIA Hx Anesthesia: Yes Hx Anesthesia Reactions: No Hx Malignant Hyperthermia: No Meds Allergies/Adverse Reactions: Allergies Allergy/AdvReac Type Severity Reaction Status Date / Time No Known Allergies Allergy Verified 08/08/16 13:26 Physical Exam - Constitutional Appears: Non-toxic, No Acute Distress - Head Exam Head Exam: ATRAUMATIC, NORMOCEPHALIC - Eye Exam Eye Exam: Normal appearance. absent: Scleral icterus - ENT Exam ENT Exam: Mucous Membranes Moist - Neck Exam Neck exam: Positive for: Full Rom - Respiratory Exam Respiratory Exam: Wheezes (Diffuse wheezing bilaterally), Respiratory Distress ( Tachypnic ) - Cardiovascular Exam Cardiovascular Exam: REGULAR RHYTHM, +S1, +S2 - GI/Abdominal Exam GI & Abdominal Exam: Soft. absent: Tenderness - Extremities Exam Extremities exam: Positive for: pedal pulses present. Negative for: calf tenderness - Neurological Exam Neurological exam: Alert, Oriented x3 - Psychiatric Exam Psychiatric exam: Normal Affect, Normal Mood Results - Vital Signs Recent Vital Signs: Last Vital Signs Temp 99.5 F 10/28/16 19:39 Pulse 68 10/28/16 19:39 Resp 20 10/28/16 19:39 BP 114/63 10/28/16 19:39 Pulse Ox 96 10/28/16 19:39 - Labs Result Diagrams: 10/29/16 06:10 10/29/16 06:10 Assessment & Plan - Assessment and Plan (Free Text) Assessment: 85 y.o. female admitted for CHF exacerbation Acute CHF exacerbation- Diastolic Heart failure secondary to Hypertrophic Cardiomyopathy with an EF of 65% on Echocardiogram on July 2016 1- I.V. Lasix 40mg IVP in the E.D. 2- ProBNP elevated 14,600, Troponin negative x 1 3- Resume Lasix 20mg PO 4- Consider increasing Lasix to 40mg PO 5- Repeat CMP in the a.m. 6- Will consult Cardiology Dr. Rodriguez in the a.m.- input appreciated 7- Repeat EKG in the a.m. Wheezing of unclear etiology s/p Influenza vaccine 1 week ago Pt. is non-smoker and no previous hx of Asthma/COPD 1- Duoneb Q6 scheduled 2- Prednisone 40meq x 1 3- Will consult Pulmonology Dr. Anna for further recommendation- input appreciated Hypokalemia- stable on admission K+ of 4.6 1- c/w K-dur 20meq daily PO HTN 1- Resume Carvedilol 3.125mg po Q12 HLD 1- c/w Atorvastatin 10mg A-Fib 1- c/w Xarelto 20mg 2- Coags in the a.m. Schizophrenia- Stable on admission with no auditory or visual halluciantions noted 1- c/w Risperdal 0.25mg qhs DVT prophylaxis 1- SCD for now Diet 1- Heart Healthy <Rosas Pathak A - Last Filed: 10/30/16 06:54> Results - Vital Signs Recent Vital Signs: Last Vital Signs Temp 97.7 F 10/30/16 05:10 Pulse 67 10/30/16 05:10 Resp 18 10/30/16 05:10 BP 131/79 10/30/16 05:10 Pulse Ox 98 10/30/16 05:10 - Labs Result Diagrams: 10/29/16 06:10 10/29/16 06:10 Attending/Attestation - Attestation I have personally seen and examined this patient.: Yes I have fully participated in the care of the patient.: Yes I have reviewed all pertinent clinical information: Yes
[2016-10-28] MEDS ORDERED: Albuterol-Ipratrop 3 mg / 0.5 (3 ml) UD INH STA (20:59)
[2016-10-28] MEDS ORDERED: Albuterol-Ipratrop 3 mg / 0.5 (3 ml) UD ONE (21:03)
[2016-10-28] MEDS ORDERED: Patient's Own Med (Simvastatin [Simvastatin] 20 MG) PO SCH (22:00)
[2016-10-29] MEDS ORDERED: Albuterol-Ipratrop 3 mg / 0.5 (3 ml) UD INH STA (04:34)
[2016-10-29 07:39] LABS: HEMATOCRIT 39.7 % (34.0-47.0); MEAN CELL VOLUME 89.7 fl (81.0-99.0); MEAN CORPUSCULAR HEMOGLOBIN 29.2 pg (27.0-31.0); MEAN CORPUSCULAR HGB CONC 32.6 g/dL (33.0-37.0); RED CELL DISTRIBUTION WIDTH 14.7 % (11.5-14.5); WHITE BLOOD COUNT 10.3 K/uL (4.8-10.8)
[2016-10-29 07:40] LABS: BLOOD UREA NITROGEN 14 mg/dl (7-17); CALCIUM 8.9 mg/dL (8.4-10.2); CARBON DIOXIDE 25 mmol/L (22-30); CHLORIDE 102 mmol/L (98-107); GFR AFRICAN-AMERICAN > 60; GLUCOSE,RANDOM 87 mg/dL (65-105); POTASSIUM 4.2 MMOL/L (3.6-5.0); SODIUM 140 mmol/l (132-148)
[2016-10-29 07:43] LABS: PARTIAL THROMBOPLASTIN TIME 32.7 Seconds (25.6-37.1)
[2016-10-29] MEDS: Potassium Chloride 20 mEq ER Tab PO SCH (08:40)
--- NOTE | 2016-10-29 09:49 | CP.PCM.CON ---
History of Present Illness - History of Present Illness History of Present Illness: This 85 year old female was admitted because of cough, wheeze and SOB which began about 4 days ago and has not improved with outpatient treatment. She was unaware of fever, denies chest pain, chills and sweats. She does have expectoration of yellow phlegm, no hemoptysis. No known ill contacts. Presented with mild leukocytosis, but no fever. A chest x-ray was done which shows hilar vascular prominence, but no areas of consolidation or pleural effusions. She had been hospitalized and treated for pneumonia recently. She is followed closely by cardiology because of IHSS and a fib which resulted in ablation and insertion of a pacemaker/AICD. Past Patient History - Tetanus Immunizations Tetanus Immunization: Unknown - Past Medical History & Family History Past Medical History?: Yes - Past Social History Smoking Status: Never Smoked Chewing Tobacco Use: No Cigar Use: No Alcohol: None Drugs: Denies - CARDIAC Hx Atrial Fibrillation: Yes Hx Congestive Heart Failure: Yes Hx Heart Attack: Yes Hx Heart Murmur: Yes Hx Internal Defibrillator: Yes Hx Pacemaker: Yes - PULMONARY Hx Pneumonia: Yes - NEUROLOGICAL Hx Neurological Disorder: No - HEENT Hx Sinusitis: Yes - RENAL Hx Chronic Kidney Disease: No - ENDOCRINE/METABOLIC Hx Endocrine Disorders: No - HEMATOLOGICAL/ONCOLOGICAL Hx Anemia: No Hx Human Immunodeficiency Virus (HIV): No - INTEGUMENTARY Hx Dermatological Problems: No - MUSCULOSKELETAL/RHEUMATOLOGICAL Hx Arthritis: Yes Hx Fractures: Yes (right knee patella) - GASTROINTESTINAL Hx Diverticulitis: Yes - GENITOURINARY/GYNECOLOGICAL Hx Genitourinary Disorders: No - PSYCHIATRIC Hx Anxiety: Yes Hx Depression: Yes Hx Schizophrenia: Yes - SURGICAL HISTORY Hx Orthopedic Surgery: Yes (right knee x 2) Other/Comment: AICD/Pacemaker - ANESTHESIA Hx Anesthesia: Yes Hx Anesthesia Reactions: No Hx Malignant Hyperthermia: No Meds Allergies/Adverse Reactions: Allergies Allergy/AdvReac Type Severity Reaction Status Date / Time No Known Allergies Allergy Verified 08/08/16 13:26 - Medications Medications: Current Medications Albuterol/Ipratropium (Duoneb 3 Mg/0.5 Mg (3 Ml) Ud) 3 ml INH RQ6 [facility] Atorvastatin Calcium (Lipitor) 20 mg PO HS [facility] Carvedilol (Coreg) 3.125 mg PO Q12H [facility] Last Admin: 10/29/16 08:40 Dose: 3.125 mg Furosemide (Lasix) 20 mg PO DAILY [facility] Last Admin: 10/29/16 08:40 Dose: 20 mg Potassium Chloride (K-Dur 20 Meq Er Tab) 20 meq PO DAILY [facility] Last Admin: 10/29/16 08:40 Dose: 20 meq Risperidone (Risperdal Tab) 0.25 mg PO HS [facility] Last Admin: 10/28/16 21:41 Dose: 0.25 mg Rivaroxaban (Xarelto) 20 mg PO DAILY [facility] PRN Reason: Protocol Last Admin: 10/29/16 08:41 Dose: 20 mg Physical Exam - Additional Findings Additional findings: Seated in bedside chair, coughing non-productively. Pharynx is pink and moist w/o exudate. Neck is supple and trachea midline. No visible JVD. No palpable lymphadenopathy. No dullness on chest percussion, equal expansion. Deep breathing induces coughing. Sonorous and sibilant rhonchi are heard bilaterally in lower lobes. Scattered expiratory wheezing bilaterally. Few medium rales in LL's. No bronchial breathing or egophony. Heart sounds are slightly distant, + systolic murmur. No dependant edema, no cyanosis. Results - Vital Signs Recent Vital Signs: Last Vital Signs Temp 97.9 F 10/29/16 09:00 Pulse 80 10/29/16 09:00 Resp 18 10/29/16 09:00 BP 130/64 10/29/16 09:00 Pulse Ox 98 10/29/16 09:00 - Labs Result Diagrams: 10/30/16 06:50 10/30/16 06:50 Labs: Laboratory Results - last 24 hr 10/29/16 10/29/16 10/29/16 06:10 06:10 07:15 WBC 10.3 RBC 4.43 Hgb 13.0 Hct 39.7 MCV 89.7 MCH 29.2 MCHC 32.6 L RDW 14.7 H Plt Count 288 PT 18.4 H INR 1.8 H APTT 32.7 Sodium 140 Potassium 4.2 Chloride 102 Carbon Dioxide 25 Anion Gap 16 BUN 14 Creatinine 0.8 Est GFR ( Amer) > 60 Est GFR (Non-Af Amer) > 60 Random Glucose 87 Calcium 8.9 Assessment & Plan (1) SOB (shortness of breath) Status: Acute Priority: High (2) Bronchospasm with bronchitis, acute Status: Acute Priority: High - Assessment and Plan (Free Text) Plan: Cough suppression. Bronchodilator aerosol therapy. Broad spectrum oral antibiotic. Sputum culture. CT chest requested w/o contrast. - Date & Time Date: 10/29/16 Time: 09:51
--- NOTE | 2016-10-29 12:10 | CP.PCM.CON ---
History of Present Illness - History of Present Illness History of Present Illness: This 85-year-old female well known to me over number of years was hospitalized following marked shortness of breath and persistent productive cough. The patient has recently received flu vaccination. She denies any fever or chills. She has a long medical history which consists off IHSS with coronary artery disease recurrent atrial fibrillation for which she has required ablation procedure followed by an AICD implant. The patient recently had a bout of atrial fibrillation and was cardioverted. She briefly took amiodarone which had to be discontinued because of severe side effects. The patient has had significant left ventricular diastolic dysfunction resulting in congestive cardiac failure for which she takes 20 mg of furosemide daily. Physical examination shows an elderly lady who is alert awake and coherent. Afebrile the respiratory rate of 18-20 breaths per minute. She has a heart rate of 74 bpm and regular. Her blood pressure is 124/74 mmHg. Her jugular venous pressure was not elevated and there was no pedal edema. Her extremities were warm her nailbeds were pink and there was no central or peripheral cyanosis. An AICD was present in the left infraclavicular area. Her apex was not palpable. A long ejection systolic murmur was audible in the left parasternal region with a muffled second heart sound. Her expiration was prolonged and there was wheezing audible all over the chest. The patient also had a productive cough. Her electric cart a gram showed atrial sensed and ventricular paced rhythm. Chest x-ray was noted. Lab data was noted. Her proBNP was elevated. Impression: Acute bronchitis. Status post AICD implant with recurrent atrial fibrillation in a patient with IHSS. Congestive cardiac failure which is left ventricular diastolic and chronic. the patient is stable from cardiovascular point of view. Past Patient History - Tetanus Immunizations Tetanus Immunization: Unknown - Past Medical History & Family History Past Medical History?: Yes - Past Social History Smoking Status: Never Smoked Chewing Tobacco Use: No Cigar Use: No Alcohol: None Drugs: Denies - CARDIAC Hx Atrial Fibrillation: Yes Hx Congestive Heart Failure: Yes Hx Heart Attack: Yes Hx Heart Murmur: Yes Hx Internal Defibrillator: Yes Hx Pacemaker: Yes - PULMONARY Hx Pneumonia: Yes - NEUROLOGICAL Hx Neurological Disorder: No - HEENT Hx Sinusitis: Yes - RENAL Hx Chronic Kidney Disease: No - ENDOCRINE/METABOLIC Hx Endocrine Disorders: No - HEMATOLOGICAL/ONCOLOGICAL Hx Anemia: No Hx Human Immunodeficiency Virus (HIV): No - INTEGUMENTARY Hx Dermatological Problems: No - MUSCULOSKELETAL/RHEUMATOLOGICAL Hx Arthritis: Yes Hx Fractures: Yes (right knee patella) - GASTROINTESTINAL Hx Diverticulitis: Yes - GENITOURINARY/GYNECOLOGICAL Hx Genitourinary Disorders: No - PSYCHIATRIC Hx Anxiety: Yes Hx Depression: Yes Hx Schizophrenia: Yes - SURGICAL HISTORY Hx Orthopedic Surgery: Yes (right knee x 2) Other/Comment: AICD/Pacemaker - ANESTHESIA Hx Anesthesia: Yes Hx Anesthesia Reactions: No Hx Malignant Hyperthermia: No Meds Allergies/Adverse Reactions: Allergies Allergy/AdvReac Type Severity Reaction Status Date / Time No Known Allergies Allergy Verified 08/08/16 13:26 - Medications Medications: Current Medications Albuterol/Ipratropium (Duoneb 3 Mg/0.5 Mg (3 Ml) Ud) 3 ml INH RQ6 [facility] Atorvastatin Calcium (Lipitor) 20 mg PO HS [facility] Carvedilol (Coreg) 3.125 mg PO Q12H [facility] Last Admin: 10/29/16 08:40 Dose: 3.125 mg Furosemide (Lasix) 20 mg PO DAILY [facility] Last Admin: 10/29/16 08:40 Dose: 20 mg Potassium Chloride (K-Dur 20 Meq Er Tab) 20 meq PO DAILY [facility] Last Admin: 10/29/16 08:40 Dose: 20 meq Risperidone (Risperdal Tab) 0.25 mg PO HS [facility] Last Admin: 10/28/16 21:41 Dose: 0.25 mg Rivaroxaban (Xarelto) 20 mg PO DAILY [facility] PRN Reason: Protocol Last Admin: 10/29/16 08:41 Dose: 20 mg Results - Vital Signs Recent Vital Signs: Last Vital Signs Temp 97.9 F 10/29/16 09:00 Pulse 80 10/29/16 09:00 Resp 18 10/29/16 09:00 BP 130/64 10/29/16 09:00 Pulse Ox 98 10/29/16 09:00 - Labs Result Diagrams: 10/29/16 06:10 10/29/16 06:10
--- NOTE | 2016-10-29 14:17 | CP.PCM.PN ---
<Sherly Sungth - Last Filed: 10/29/16 14:41> Subjective - Date & Time of Evaluation Date of Evaluation: 10/29/16 Time of Evaluation: 07:05 - Subjective Subjective: Patient seen and examined in telemetry unit this morning. Patient still c/o SOB, and wheezing, however improving. Denies chest pain, chills, dizziness, abd pain, diarrheas, headaches Afebrile, VS stable WNL No events reported overnight Objective - Vital Signs/Intake and Output Vital Signs (last 24 hours): Temp Pulse Resp BP Pulse Ox 98.6 F 66 18 99/65 L 97 10/29/16 12:20 10/29/16 12:20 10/29/16 12:20 10/29/16 12:20 10/29/16 12:20 - Medications Medications: Current Medications Albuterol/Ipratropium (Duoneb 3 Mg/0.5 Mg (3 Ml) Ud) 3 ml INH RQ6 [facility] Atorvastatin Calcium (Lipitor) 20 mg PO HS [facility] Carvedilol (Coreg) 3.125 mg PO Q12H [facility] Last Admin: 10/29/16 08:40 Dose: 3.125 mg Furosemide (Lasix) 20 mg PO DAILY [facility] Last Admin: 10/29/16 08:40 Dose: 20 mg Potassium Chloride (K-Dur 20 Meq Er Tab) 20 meq PO DAILY [facility] Last Admin: 10/29/16 08:40 Dose: 20 meq Risperidone (Risperdal Tab) 0.25 mg PO HS [facility] Last Admin: 10/28/16 21:41 Dose: 0.25 mg Rivaroxaban (Xarelto) 20 mg PO DAILY [facility] PRN Reason: Protocol Last Admin: 10/29/16 08:41 Dose: 20 mg - Labs Labs: PT 18.4 Seconds (9.8-13.1) H 10/29/16 07:15 INR 1.8 (0.9-1.2) H 10/29/16 07:15 APTT 32.7 Seconds (25.6-37.1) 10/29/16 07:15 - Constitutional Appears: No Acute Distress - ENT Exam ENT Exam: Mucous Membranes Moist - Respiratory Exam Respiratory Exam: Rhonchi, Wheezes, NORMAL BREATHING PATTERN. absent: Rales - Cardiovascular Exam Cardiovascular Exam: REGULAR RHYTHM, +S1, +S2 - GI/Abdominal Exam GI & Abdominal Exam: Soft, Normal Bowel Sounds. absent: Distended, Guarding, Tenderness - Extremities Exam Extremities Exam: Normal Inspection. absent: Calf Tenderness, Pedal Edema - Neurological Exam Neurological Exam: Alert, Awake, Oriented x3 Assessment and Plan - Assessment and Plan (Free Text) Assessment: 85 y/o female with PMHx of CHF, HLD, HTN, A fib admitted with persistent SOB, wheezing, and decreased oxygen saturation. Plan: Short of breath and wheezing most likely allergic reaction from Flu vaccine given last week, Asthmatic Bronchitis? -Lowest oxygen saturation was 93 % -c/w oxygen via NC 2 LPM -c/w Duoneb L2amoxw -consider c/w steroids PO f/u respiratory status -Pulmunology consult appreciated, Dr. Anna. 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 Juan Carlos Rodriguez appreciated, to r/o CHF exacerbation. F/u recommendations HTN controlled c/w Carvedilol 3.125mg po Q12 HLD c/w Atorvastatin 10mg A-Fib HR controlled c/w Carvedilol 3.125mg po Q12 c/w Xarelto 20mg Schizophrenia Stable on admission with no auditory or visual halluciantions noted c/w Risperdal 0.25mg qhs DVT prophylaxis SCDs pt on Xarelto <Asim Gooden - Last Filed: 10/31/16 06:42> Objective - Vital Signs/Intake and Output Vital Signs (last 24 hours): Temp Pulse Resp BP Pulse Ox 98.4 F 63 19 130/69 95 10/31/16 04:48 10/31/16 04:48 10/31/16 04:48 10/31/16 04:48 10/31/16 04:48 Intake and Output: 10/30/16 10/31/16 18:59 06:59 Intake Total 1110 Balance 1110 - Medications Medications: Current Medications Acetaminophen (Tylenol 325mg Tab) 650 mg PO Q6 PRN PRN Reason: other Last Admin: 10/31/16 06:06 Dose: 650 mg Albuterol Sulfate (Albuterol 0.083% Inhal Billie (2.5 Mg/3 Ml) Ud) 2.5 mg INH RQ4 PRN PRN Reason: Shortness of Breath Albuterol/Ipratropium (Duoneb 3 Mg/0.5 Mg (3 Ml) Ud) 3 ml INH RQID [facility] Last Admin: 10/30/16 19:27 Dose: 3 ml Atorvastatin Calcium (Lipitor) 20 mg PO HS [facility] Last Admin: 10/30/16 21:21 Dose: 20 mg Carvedilol (Coreg) 3.125 mg PO Q12H [facility] Last Admin: 10/30/16 21:20 Dose: 3.125 mg Furosemide (Lasix) 20 mg PO DAILY [facility] Last Admin: 10/30/16 09:11 Dose: 20 mg Azithromycin 500 mg/ Sodium (Chloride) 250 mls @ 250 mls/hr IVPB DAILY [facility] Last Admin: 10/30/16 09:12 Dose: 250 mls/hr Potassium Chloride (K-Dur 20 Meq Er Tab) 20 meq PO DAILY [facility] Last Admin: 10/30/16 09:11 Dose: 20 meq Prednisone (Prednisone Tab) 20 mg PO DAILY [facility] Last Admin: 10/30/16 09:12 Dose: 20 mg Risperidone (Risperdal Tab) 0.25 mg PO HS [facility] Last Admin: 10/30/16 21:21 Dose: 0.25 mg Rivaroxaban (Xarelto) 20 mg PO DAILY [facility] PRN Reason: Protocol Last Admin: 10/30/16 09:13 Dose: 20 mg - Labs Labs: 10/30/16 06:50 10/30/16 06:50 PT 18.4 Seconds (9.8-13.1) H 10/29/16 07:15 INR 1.8 (0.9-1.2) H 10/29/16 07:15 APTT 32.7 Seconds (25.6-37.1) 10/29/16 07:15 Attending/Attestation - Attestation I have personally seen and examined this patient.: Yes I have fully participated in the care of the patient.: Yes I have reviewed all pertinent clinical information, including history, physical exam and plan: Yes
[2016-10-29] MEDS ORDERED: Sodium Chloride 3% for Inhalation 4 ML VIAL.NEB IH PRN (14:39)
--- NOTE | 2016-10-29 16:00 | CT ---
PROCEDURE: CT Chest without contrast HISTORY: cough COMPARISON: None. TECHNIQUE: Contiguous axial images were obtained through the chest without intravenous contrast enhancement. Sagittal and coronal reconstructions were performed. Radiation dose (DLP): 465.69 mGy-cm. This CT exam was performed using one or more of the following dose reduction techniques: Automated exposure control, adjustment of the mA and/or kV according to patient size, and/or use of iterative reconstruction technique. FINDINGS: LUNGS: Multi segment, subsegmental infiltrates primarily affecting perihilar region of the right upper lobe. Similar less pronounced changes identified perihilar region left lung. Parabronchial thickening identified. The constellation of findings likely left represent lower airway disease/ bronchitis/ pneumonitis. Underlying manifestations of COPD/centrilobular emphysematous change. MEDIASTINUM: Unremarkable thoracic aorta. No aneurysm. Cardiomegaly. No evidence of acute, significant cardiovascular disease. Position/ configuration of pacemaker unremarkable. No vascular congestion. Small mediastinal lymph nodes the preponderance of which are 1 cm or less identified. PLEURA: No pleural fluid. No pneumothorax. BONES: No fracture. No destructive lesion. UPPER ABDOMEN: Cholelithiasis without CT evidence of acute cholecystitis. OTHER FINDINGS: None. IMPRESSION: Findings consistent with lower airway disease/ bronchitis -pneumonitis. This includes central perihilar alveolar changes, symmetrical parabronchial thickening. No evidence of mucous plugging. Cholelithiasis without CT evidence of acute cholecystitis.
--- NOTE | 2016-10-29 16:36 | CARD ---
APPROVED REPORT EKG Measurement Heart [id number] <Conclusion> Atrial-sensed ventricular-paced rhythm with prolonged AV conduction Abnormal ECG
[2016-10-29] MEDS: Albuterol-Ipratrop 3 mg / 0.5 (3 ml) UD INH SCH (19:18)
[2016-10-30 07:22] LABS: MEAN CELL VOLUME 89.6 fl (81.0-99.0); MEAN CORPUSCULAR HEMOGLOBIN 28.8 pg (27.0-31.0); MEAN CORPUSCULAR HGB CONC 32.2 g/dL (33.0-37.0); WHITE BLOOD COUNT 9.5 K/uL (4.8-10.8)
[2016-10-30 07:32] LABS: BLOOD UREA NITROGEN 23 mg/dl (7-17); CALCIUM 9.2 mg/dL (8.4-10.2); CARBON DIOXIDE 27 mmol/L (22-30); CHLORIDE 103 mmol/L (98-107); GFR AFRICAN-AMERICAN > 60; GLUCOSE,RANDOM 85 mg/dL (65-105); POTASSIUM 4.2 MMOL/L (3.6-5.0); SODIUM 140 mmol/l (132-148)
[2016-10-30] MEDS: Albuterol-Ipratrop 3 mg / 0.5 (3 ml) UD INH SCH ×4 (07:55→19:27)
--- NOTE | 2016-10-30 09:01 | CARD ---
APPROVED REPORT EKG Measurement Heart [id number] <Conclusion> Atrial-sensed ventricular-paced rhythm with prolonged AV conduction Abnormal ECG
[2016-10-30] MEDS: Potassium Chloride 20 mEq ER Tab PO SCH (09:11)
[2016-10-30] MEDS: Azithromycin 500 MG in Sodium Chloride 0.9% 250 ML IVPB SCH (09:12)
[2016-10-30] MEDS ORDERED: Albuterol 0.083% Inhal Sol (2.5 mg/3 mL) UD INH PRN (09:54)
--- NOTE | 2016-10-30 09:59 | CP.PCM.PN ---
Subjective - Date & Time of Evaluation Date of Evaluation: 10/30/16 Time of Evaluation: 09:54 - Subjective Subjective: Seated in a bedside chair, appears comfortable. States that she does feel a little better today. Small amounts of phlegm are expectorated; clear mucous. Vital signs have been stable. She continues to be afebrile. CT chest done yesterday shows some mild mosaicism, peribronchial cuffing, mild bronchiectasis. On exam today there are residual sibilant as well as sonorous rhonchi. No audible wheezes or bronchial breath sounds. Deep inspiration does not result in coughing today. No leukocytosis and improved BNP. Bronchitis with bronchiolitis and possibly very early pneumonitis. These are improving on the current regimen. Would continue PO prednisone on a decreasing dosage schedule. If she continues to improve consider switching to oral antibiotic tomorrow. Beta adrenergic and muscarinic aerosols seem effective. Non-selective beta janie seems to not be a problem at this time, and I expect the bronchospasm to subside as the infectious process resolves. Objective - Vital Signs/Intake and Output Vital Signs (last 24 hours): Temp Pulse Resp BP Pulse Ox 98.3 F 68 18 129/69 96 10/30/16 08:00 10/30/16 09:10 10/30/16 08:00 10/30/16 09:11 10/30/16 08:00 - Medications Medications: Current Medications Albuterol Sulfate (Albuterol 0.083% Inhal Billie (2.5 Mg/3 Ml) Ud) 2.5 mg INH RQ4 PRN PRN Reason: Shortness of Breath Albuterol/Ipratropium (Duoneb 3 Mg/0.5 Mg (3 Ml) Ud) 3 ml INH RQID [facility] Atorvastatin Calcium (Lipitor) 20 mg PO HS [facility] Last Admin: 10/29/16 21:27 Dose: 20 mg Carvedilol (Coreg) 3.125 mg PO Q12H [facility] Last Admin: 10/30/16 09:10 Dose: 3.125 mg Furosemide (Lasix) 20 mg PO DAILY [facility] Last Admin: 10/30/16 09:11 Dose: 20 mg Azithromycin 500 mg/ Sodium (Chloride) 250 mls @ 250 mls/hr IVPB DAILY [facility] Last Admin: 10/30/16 09:12 Dose: 250 mls/hr Potassium Chloride (K-Dur 20 Meq Er Tab) 20 meq PO DAILY [facility] Last Admin: 10/30/16 09:11 Dose: 20 meq Prednisone (Prednisone Tab) 20 mg PO DAILY [facility] Last Admin: 10/30/16 09:12 Dose: 20 mg Risperidone (Risperdal Tab) 0.25 mg PO HS [facility] Last Admin: 10/29/16 21:27 Dose: 0.25 mg Rivaroxaban (Xarelto) 20 mg PO DAILY [facility] PRN Reason: Protocol Last Admin: 10/30/16 09:13 Dose: 20 mg - Labs Labs: 10/30/16 06:50 10/30/16 06:50 PT 18.4 Seconds (9.8-13.1) H 10/29/16 07:15 INR 1.8 (0.9-1.2) H 10/29/16 07:15 APTT 32.7 Seconds (25.6-37.1) 10/29/16 07:15 Assessment and Plan (1) SOB (shortness of breath) Status: Acute (2) Bronchospasm with bronchitis, acute Status: Acute
--- NOTE | 2016-10-30 10:22 | CP.PCM.PN ---
Subjective - Date & Time of Evaluation Date of Evaluation: 10/30/16 Time of Evaluation: 09:40 - Subjective Subjective: Had a fair amount of productive cough last night Afebrile, sitting OOB, comfortable A sensed/ V paced rhythm+ BP 130/70 mm Hg No signs of CHF Stable from cardiac point of view. Objective - Vital Signs/Intake and Output Vital Signs (last 24 hours): Temp Pulse Resp BP Pulse Ox 98.3 F 68 18 129/69 96 10/30/16 08:00 10/30/16 09:10 10/30/16 08:00 10/30/16 09:11 10/30/16 08:00 - Medications Medications: Current Medications Albuterol Sulfate (Albuterol 0.083% Inhal Billie (2.5 Mg/3 Ml) Ud) 2.5 mg INH RQ4 PRN PRN Reason: Shortness of Breath Albuterol/Ipratropium (Duoneb 3 Mg/0.5 Mg (3 Ml) Ud) 3 ml INH RQID [facility] Atorvastatin Calcium (Lipitor) 20 mg PO HS [facility] Last Admin: 10/29/16 21:27 Dose: 20 mg Carvedilol (Coreg) 3.125 mg PO Q12H [facility] Last Admin: 10/30/16 09:10 Dose: 3.125 mg Furosemide (Lasix) 20 mg PO DAILY [facility] Last Admin: 10/30/16 09:11 Dose: 20 mg Azithromycin 500 mg/ Sodium (Chloride) 250 mls @ 250 mls/hr IVPB DAILY [facility] Last Admin: 10/30/16 09:12 Dose: 250 mls/hr Potassium Chloride (K-Dur 20 Meq Er Tab) 20 meq PO DAILY [facility] Last Admin: 10/30/16 09:11 Dose: 20 meq Prednisone (Prednisone Tab) 20 mg PO DAILY [facility] Last Admin: 10/30/16 09:12 Dose: 20 mg Risperidone (Risperdal Tab) 0.25 mg PO HS [facility] Last Admin: 10/29/16 21:27 Dose: 0.25 mg Rivaroxaban (Xarelto) 20 mg PO DAILY [facility] PRN Reason: Protocol Last Admin: 10/30/16 09:13 Dose: 20 mg - Labs Labs: 10/30/16 06:50 10/30/16 06:50 PT 18.4 Seconds (9.8-13.1) H 10/29/16 07:15 INR 1.8 (0.9-1.2) H 10/29/16 07:15 APTT 32.7 Seconds (25.6-37.1) 10/29/16 07:15
--- NOTE | 2016-10-30 10:51 | CP.PCM.PN ---
<Simran Sung - Last Filed: 10/30/16 10:47> Subjective - Date & Time of Evaluation Date of Evaluation: 10/30/16 Time of Evaluation: 07:05 - Subjective Subjective: Patient seen and examined with attending in telemetry this morning. Still c/o short of breath and non productive cough, however improving in current treatment. Afebrile, rest of VS stable WNL Had an uneventful night Objective - Vital Signs/Intake and Output Vital Signs (last 24 hours): Temp Pulse Resp BP Pulse Ox 98.3 F 68 18 129/69 96 10/30/16 08:00 10/30/16 09:10 10/30/16 08:00 10/30/16 09:11 10/30/16 08:00 - Medications Medications: Current Medications Albuterol Sulfate (Albuterol 0.083% Inhal Billie (2.5 Mg/3 Ml) Ud) 2.5 mg INH RQ4 PRN PRN Reason: Shortness of Breath Albuterol/Ipratropium (Duoneb 3 Mg/0.5 Mg (3 Ml) Ud) 3 ml INH RQID [facility] Atorvastatin Calcium (Lipitor) 20 mg PO HS [facility] Last Admin: 10/29/16 21:27 Dose: 20 mg Carvedilol (Coreg) 3.125 mg PO Q12H [facility] Last Admin: 10/30/16 09:10 Dose: 3.125 mg Furosemide (Lasix) 20 mg PO DAILY [facility] Last Admin: 10/30/16 09:11 Dose: 20 mg Azithromycin 500 mg/ Sodium (Chloride) 250 mls @ 250 mls/hr IVPB [facility]ILY [facility] Last Admin: 10/30/16 09:12 Dose: 250 mls/hr Potassium Chloride (K-Dur 20 Meq Er Tab) 20 meq PO DAILY [facility] Last Admin: 10/30/16 09:11 Dose: 20 meq Prednisone (Prednisone Tab) 20 mg PO DAILY [facility] Last Admin: 10/30/16 09:12 Dose: 20 mg Risperidone (Risperdal Tab) 0.25 mg PO HS [facility] Last Admin: 10/29/16 21:27 Dose: 0.25 mg Rivaroxaban (Xarelto) 20 mg PO DAILY [facility] PRN Reason: Protocol Last Admin: 10/30/16 09:13 Dose: 20 mg - Labs Labs: 10/30/16 06:50 10/30/16 06:50 PT 18.4 Seconds (9.8-13.1) H 10/29/16 07:15 INR 1.8 (0.9-1.2) H 10/29/16 07:15 APTT 32.7 Seconds (25.6-37.1) 10/29/16 07:15 - Constitutional Appears: No Acute Distress - ENT Exam ENT Exam: Mucous Membranes Moist - Respiratory Exam Respiratory Exam: NORMAL BREATHING PATTERN. absent: Rales Additional comments: scant, diffuse bilateral wheezes, and fine rhonchi - Cardiovascular Exam Cardiovascular Exam: REGULAR RHYTHM, +S1, +S2 - GI/Abdominal Exam GI & Abdominal Exam: Soft, Normal Bowel Sounds. absent: Distended, Guarding, Tenderness - Extremities Exam Extremities Exam: Normal Inspection. absent: Calf Tenderness, Pedal Edema - Neurological Exam Neurological Exam: Alert, Awake, Oriented x3 Assessment and Plan - Assessment and Plan (Free Text) Assessment: 85 y/o female with PMHx of CHF, HLD, HTN, A fib admitted with persistent SOB, wheezing, and decreased oxygen saturation, now improving. Plan: Acute Bronchitis most likely allergic reaction from Flu vaccine given last week improving -c/w oxygen via NC 2 LPM -c/w Duoneb -c/w steroids/Prednisone 20 mg PO daily -c/w azithromycin as per Pulmunologist recommendation -f/u respiratory status -f/u sputum cultures -Pulmunology consulted, Dr. Anna. 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 Juan Carlos Rodriguez. Stable from cardiac point of view. HTN controlled c/w Carvedilol 3.125mg po Q12 HLD c/w Atorvastatin 10mg A-Fib HR controlled c/w Carvedilol 3.125 mg po Q12 c/w Xarelto 20mg Schizophrenia Stable on admission with no auditory or visual halluciantions noted c/w Risperdal 0.25mg qhs DVT prophylaxis SCDs pt on Xarelto <Rosas Pathak A - Last Filed: 11/01/16 06:54> Objective - Vital Signs/Intake and Output Vital Signs (last 24 hours): Temp Pulse Resp BP Pulse Ox 97.9 F 66 20 116/66 95 11/01/16 05:04 11/01/16 05:04 11/01/16 05:04 11/01/16 05:04 11/01/16 05:04 Intake and Output: 10/31/16 11/01/16 18:59 06:59 Intake Total 1650 Balance 1650 - Medications Medications: Current Medications Acetaminophen (Tylenol 325mg Tab) 650 mg PO Q6 PRN PRN Reason: other Last Admin: 10/31/16 06:06 Dose: 650 mg Albuterol Sulfate (Albuterol 0.083% Inhal Billie (2.5 Mg/3 Ml) Ud) 2.5 mg INH RQ4 PRN PRN Reason: Shortness of Breath Atorvastatin Calcium (Lipitor) 20 mg PO HS [facility] Last Admin: 10/31/16 21:02 Dose: 20 mg Carvedilol (Coreg) 3.125 mg PO Q12H [facility] Last Admin: 10/31/16 21:02 Dose: 3.125 mg Furosemide (Lasix) 20 mg PO DAILY [facility] Last Admin: 10/31/16 09:03 Dose: 20 mg Azithromycin 500 mg/ Sodium (Chloride) 250 mls @ 250 mls/hr IVPB DAILY [facility] Last Admin: 10/31/16 09:02 Dose: 250 mls/hr Potassium Chloride (K-Dur 20 Meq Er Tab) 20 meq PO DAILY [facility] Last Admin: 10/31/16 09:03 Dose: 20 meq Prednisone (Prednisone Tab) 15 mg PO DAILY [facility] Risperidone (Risperdal Tab) 0.25 mg PO HS [facility] Last Admin: 10/31/16 21:02 Dose: 0.25 mg Rivaroxaban (Xarelto) 20 mg PO DAILY [facility] PRN Reason: Protocol Last Admin: 10/31/16 09:04 Dose: 20 mg Fluticasone/Salmeterol (Advair Diskus 250/50) 1 puff IH Q12 [facility] Last Admin: 10/31/16 21:03 Dose: 1 puff - Labs Labs: 10/30/16 06:50 10/30/16 06:50 PT 18.4 Seconds (9.8-13.1) H 10/29/16 07:15 INR 1.8 (0.9-1.2) H 10/29/16 07:15 APTT 32.7 Seconds (25.6-37.1) 10/29/16 07:15 Attending/Attestation - Attestation I have personally seen and examined this patient.: Yes I have fully participated in the care of the patient.: Yes I have reviewed all pertinent clinical information, including history, physical exam and plan: Yes
--- NOTE | 2016-10-30 12:44 | PQF GENQUE ---
This form is a permanent part of the medical record 10/30/16 Dr. Juan Carlos Rodriguez, Please clarify the type of atrial fibrillation. Documentation that the patient has a history of recurrent Atrial Fibrillation. Medications include Xarelto and Coreg. Clarification of your documentation is requested to better reflect the severity of illness and intensity of treatment of your patient. PHYSICIAN'S RESPONSE Please clarify the type of atrial fibrillation: [X] Chronic [] Paroxysmal [] Permanent [] Persistent [] Other (please specify type) [] Clinically unable to determine [] Unknown Based on your medical judgment of the clinical indicators outlined above please clarify the following: [] Practitioner response [] If unable to determine, please check the box, sign and date. Present On Admission (POA) Indicator: [] Present at the time of admission [] Not present at the time of admission [] Clinically Undetermined In responding to this query, please exercise your independent professional judgment. The fact that a question is asked does not imply that any particular answer is desired or expected. Thank you for your clarification on this documentation. If you have any questions please call:ext [phone] * Thank you, Alicia Pastrana RN CDMP [facility]
[2016-10-31] MEDS: Albuterol-Ipratrop 3 mg / 0.5 (3 ml) UD INH SCH (07:53)
[2016-10-31] MEDS: Azithromycin 500 MG in Sodium Chloride 0.9% 250 ML IVPB SCH (09:02)
[2016-10-31] MEDS: Potassium Chloride 20 mEq ER Tab PO SCH (09:03)
--- NOTE | 2016-10-31 09:26 | CP.PCM.PN ---
Subjective - Date & Time of Evaluation Date of Evaluation: 10/31/16 Time of Evaluation: : - Subjective Subjective: Interim events reviewed. Has been doing well on the current regimen. She remains afebrile and her other vital signs have been stable as well. She is using her Acapella CPT device properly. She does have a congested cough and continues to expectorate a small volume of sputum. On exam there is no dullness to percussion of the chest wall. Sonorous and sibilant rhonchi are heard bilaterally in the lower lobes bilaterally. No audible wheezes or bronchial breath sounds. Very few medium rales are present in both LL's. Would change antibiotics to PO after this morning's dose. She may benefit from Advair 250/50 1 puff BID for the next 2-3 weeks. Reduce oral prednisone quickly. Objective - Vital Signs/Intake and Output Vital Signs (last 24 hours): Temp Pulse Resp BP Pulse Ox 98.4 F 60 18 121/64 96 10/31/16 07:59 10/31/16 09:02 10/31/16 07:59 10/31/16 09:03 10/31/16 07:59 Intake and Output: 10/30/16 10/31/16 23:59 11:59 Intake Total 1110 Balance 1110 - Medications Medications: Current Medications Acetaminophen (Tylenol 325mg Tab) 650 mg PO Q6 PRN PRN Reason: other Last Admin: 10/31/16 06:06 Dose: 650 mg Albuterol Sulfate (Albuterol 0.083% Inhal Billie (2.5 Mg/3 Ml) Ud) 2.5 mg INH RQ4 PRN PRN Reason: Shortness of Breath Albuterol/Ipratropium (Duoneb 3 Mg/0.5 Mg (3 Ml) Ud) 3 ml INH RQID [facility] Last Admin: 10/31/16 07:53 Dose: 3 ml Atorvastatin Calcium (Lipitor) 20 mg PO HS [facility] Last Admin: 10/30/16 21:21 Dose: 20 mg Carvedilol (Coreg) 3.125 mg PO Q12H [facility] Last Admin: 10/31/16 09:02 Dose: 3.125 mg Furosemide (Lasix) 20 mg PO DAILY [facility] Last Admin: 10/31/16 09:03 Dose: 20 mg Azithromycin 500 mg/ Sodium (Chloride) 250 mls @ 250 mls/hr IVPB DAILY [facility] Last Admin: 10/31/16 09:02 Dose: 250 mls/hr Potassium Chloride (K-Dur 20 Meq Er Tab) 20 meq PO DAILY [facility] Last Admin: 10/31/16 09:03 Dose: 20 meq Prednisone (Prednisone Tab) 20 mg PO DAILY [facility] Last Admin: 10/31/16 09:04 Dose: 20 mg Risperidone (Risperdal Tab) 0.25 mg PO HS [facility] Last Admin: 10/30/16 21:21 Dose: 0.25 mg Rivaroxaban (Xarelto) 20 mg PO DAILY [facility] PRN Reason: Protocol Last Admin: 10/31/16 09:04 Dose: 20 mg - Labs Labs: 10/30/16 06:50 10/30/16 06:50 PT 18.4 Seconds (9.8-13.1) H 10/29/16 07:15 INR 1.8 (0.9-1.2) H 10/29/16 07:15 APTT 32.7 Seconds (25.6-37.1) 10/29/16 07:15 Assessment and Plan (1) SOB (shortness of breath) Status: Acute (2) Bronchospasm with bronchitis, acute Status: Acute
--- NOTE | 2016-10-31 10:16 | CP.PCM.PN ---
<Simran Sung - Last Filed: 10/31/16 10:13> Subjective - Date & Time of Evaluation Date of Evaluation: 10/31/16 Time of Evaluation: 07:05 - Subjective Subjective: Patient seen and examined in Telemetry unit with attending this morning. Still c/o SOB, and productive cough, however improving. Denies any other complains at this evaluation. Afebrile, VS stable WNL Had an uneventful night Objective - Vital Signs/Intake and Output Vital Signs (last 24 hours): Temp Pulse Resp BP Pulse Ox 98.4 F 60 18 121/64 96 10/31/16 07:59 10/31/16 09:02 10/31/16 07:59 10/31/16 09:03 10/31/16 07:59 - Medications Medications: Current Medications Acetaminophen (Tylenol 325mg Tab) 650 mg PO Q6 PRN PRN Reason: other Last Admin: 10/31/16 06:06 Dose: 650 mg Albuterol Sulfate (Albuterol 0.083% Inhal Billie (2.5 Mg/3 Ml) Ud) 2.5 mg INH RQ4 PRN PRN Reason: Shortness of Breath Atorvastatin Calcium (Lipitor) 20 mg PO HS [facility] Last Admin: 10/30/16 21:21 Dose: 20 mg Carvedilol (Coreg) 3.125 mg PO Q12H [facility] Last Admin: 10/31/16 09:02 Dose: 3.125 mg Furosemide (Lasix) 20 mg PO DAILY [facility] Last Admin: 10/31/16 09:03 Dose: 20 mg Azithromycin 500 mg/ Sodium (Chloride) 250 mls @ 250 mls/hr IVPB DAILY [facility] Last Admin: 10/31/16 09:02 Dose: 250 mls/hr Potassium Chloride (K-Dur 20 Meq Er Tab) 20 meq PO DAILY [facility] Last Admin: 10/31/16 09:03 Dose: 20 meq Prednisone (Prednisone Tab) 15 mg PO DAILY [facility] Risperidone (Risperdal Tab) 0.25 mg PO HS [facility] Last Admin: 10/30/16 21:21 Dose: 0.25 mg Rivaroxaban (Xarelto) 20 mg PO DAILY [facility] PRN Reason: Protocol Last Admin: 10/31/16 09:04 Dose: 20 mg Fluticasone/Salmeterol (Advair Diskus 250/50) 1 puff IH Q12 [facility] - Labs Labs: 10/30/16 06:50 10/30/16 06:50 PT 18.4 Seconds (9.8-13.1) H 10/29/16 07:15 INR 1.8 (0.9-1.2) H 10/29/16 07:15 APTT 32.7 Seconds (25.6-37.1) 10/29/16 07:15 - Constitutional Appears: Well, No Acute Distress - ENT Exam ENT Exam: Mucous Membranes Moist - Respiratory Exam Respiratory Exam: Rhonchi, Wheezes, NORMAL BREATHING PATTERN. absent: Rales, Respiratory Distress - Cardiovascular Exam Cardiovascular Exam: REGULAR RHYTHM, +S1, +S2 - GI/Abdominal Exam GI & Abdominal Exam: Soft, Normal Bowel Sounds. absent: Distended, Guarding, Rigid, Tenderness - Extremities Exam Extremities Exam: Normal Inspection. absent: Calf Tenderness, Pedal Edema - Neurological Exam Neurological Exam: Alert, Awake, Oriented x3 - Skin Skin Exam: Dry, Intact, Normal Color Assessment and Plan - Assessment and Plan (Free Text) Assessment: 85 y/o female with PMHx of CHF, HLD, HTN, A fib admitted with persistent SOB, wheezing, and decreased oxygen saturation, improving. Plan: Acute Bronchitis most likely allergic reaction from Flu vaccine given last week vs Viral infection improving -c/w oxygen via NC 2 LPM -c/w Duoneb -c/w steroids/Prednisone 20 mg PO daily. Taper down Prednisone by 5 mg every other day. -c/w azithromycin as per Pulmunologist recommendation. C/w for 5 more days -started on Advair Diskus 250/50 1 puff BID for 2-3 weeks -f/u respiratory status -f/u sputum cultures -Pulmunology consulted, Dr. Anna. 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 Juan Carlos Rodriguez. Stable from cardiac point of view. HTN controlled c/w Carvedilol 3.125mg po Q12 HLD c/w Atorvastatin 10mg A-Fib HR controlled c/w Carvedilol 3.125 mg po Q12 c/w Xarelto 20mg Schizophrenia Stable on admission with no auditory or visual halluciantions noted c/w Risperdal 0.25mg qhs DVT prophylaxis SCDs pt on Xarelto <Asim Gooden - Last Filed: 11/04/16 06:51> Objective - Vital Signs/Intake and Output Vital Signs (last 24 hours): Temp Pulse Resp BP Pulse Ox 98.5 F 66 0 L 123/80 99 11/01/16 08:18 11/01/16 09:48 11/01/16 08:18 11/01/16 09:51 11/01/16 08:18 - Labs Labs: 10/30/16 06:50 10/30/16 06:50 PT 18.4 Seconds (9.8-13.1) H 10/29/16 07:15 INR 1.8 (0.9-1.2) H 10/29/16 07:15 APTT 32.7 Seconds (25.6-37.1) 10/29/16 07:15
[2016-10-31] MEDS: Fluticasone-Salmeterol 250-50mcg Diskus IH SCH ×2 (10:49→21:03)
[2016-11-01 05:04] VITALS: PULSE 66
[2016-11-01 08:18] VITALS: BP 123/80; RESP 0; TEMP 98.5; O2SAT 99
--- NOTE | 2016-11-01 08:43 | CP.PCM.DIS ---
<Simran Sung - Last Filed: 11/01/16 09:58> Provider - Provider Date of Admission: 10/29/16 09:02 Attending physician: Asim Gooden MD Consults: Cardiology, Dr. Rodriguez Pulmonology, Dr. Anna Time Spent in preparation of Discharge (in minutes): 30 Diagnosis - Discharge Diagnosis (1) Acute bronchitis Status: Acute Comment: improving. F/u with PMD and Pulmonology in 1 week. C/W bronchodilators , and taper down sterioids. Antibiotic x 5 days. Advair Diskus x 2-3 weeks (2) Diastolic CHF Status: Chronic Comment: stable. No signs of exacerbation noted during this admission. As per Cardiology patient stable from cardiac point of view. f/u with PMD. (3) Hypertension Status: Chronic Comment: c/w current medications and f/u w/ PMD (4) A-fib Status: Chronic Comment: controlled. c/w current medications and f/u w/ PMD Hospital Course - Lab Results Lab Results: Micro Results 10/29/16 18:03 Sputum Induced Gram Stain - Final 10/29/16 18:03 Sputum Induced Sputum Culture - Final NORMAL ORAL SERGEI Most Recent Lab Values WBC 9.5 K/uL (4.8-10.8) 10/30/16 06:50 RBC 4.47 Mil/uL (3.80-5.20) 10/30/16 06:50 Hgb 12.9 g/dL (12.0-16.0) 10/30/16 06:50 Hct 40.0 % (34.0-47.0) 10/30/16 06:50 MCV 89.6 fl (81.0-99.0) 10/30/16 06:50 MCH 28.8 pg (27.0-31.0) 10/30/16 06:50 MCHC 32.2 g/dL (33.0-37.0) L 10/30/16 06:50 RDW 15.0 % (11.5-14.5) H 10/30/16 06:50 Plt Count 308 K/uL (130-400) 10/30/16 06:50 MPV 7.8 fl (7.2-11.7) 10/28/16 16:12 Neut % (Auto) 69.4 % (50.0-75.0) 10/28/16 16:12 Lymph % (Auto) 13.9 % (20.0-40.0) L 10/28/16 16:12 [place] % (Auto) 12.1 % (0.0-10.0) H 10/28/16 16:12 Eos % (Auto) 4.0 % (0.0-4.0) 10/28/16 16:12 Baso % (Auto) 0.6 % (0.0-2.0) 10/28/16 16:12 Neut # 7.6 K/uL (1.8-7.0) H 10/28/16 16:12 Lymph # 1.5 K/uL (1.0-4.3) 10/28/16 16:12 [place] # 1.3 K/uL (0.0-0.8) H 10/28/16 16:12 Eos # 0.4 K/uL (0.0-0.7) 10/28/16 16:12 Baso # 0.1 K/uL (0.0-0.2) 10/28/16 16:12 PT 18.4 Seconds (9.8-13.1) H 10/29/16 07:15 INR 1.8 (0.9-1.2) H 10/29/16 07:15 APTT 32.7 Seconds (25.6-37.1) 10/29/16 07:15 Sodium 140 mmol/l (132-148) 10/30/16 06:50 Potassium 4.2 MMOL/L (3.6-5.0) 10/30/16 06:50 Chloride 103 mmol/L (98-107) 10/30/16 06:50 Carbon Dioxide 27 mmol/L (22-30) 10/30/16 06:50 Anion Gap 14 (10-20) 10/30/16 06:50 BUN 23 mg/dl (7-17) H 10/30/16 06:50 Creatinine 0.8 mg/dL (0.7-1.2) 10/30/16 06:50 Est GFR ( Amer) > 60 10/30/16 06:50 Est GFR (Non-Af Amer) > 60 10/30/16 06:50 Random Glucose 85 mg/dL (65-105) 10/30/16 06:50 Calcium 9.2 mg/dL (8.4-10.2) 10/30/16 06:50 Total Bilirubin 0.6 mg/dl (0.2-1.3) 10/28/16 16:12 AST 26 U/L (14-36) 10/28/16 16:12 ALT 29 U/L (9-52) 10/28/16 16:12 Alkaline Phosphatase 92 U/L (38-126) 10/28/16 16:12 Troponin I 0.0360 ng/mL (0.00-0.120) 10/28/16 16:12 NT-Pro-B Natriuret Pep 5160 pg/ml (0-900) H 10/30/16 06:50 Total Protein 7.5 G/DL (6.3-8.2) 10/28/16 16:12 Albumin 4.0 g/dL (3.5-5.0) 10/28/16 16:12 Globulin 3.5 gm/dL (2.2-3.9) 10/28/16 16:12 Albumin/Globulin Ratio 1.1 (1.0-2.1) 10/28/16 16:12 - Hospital Course Hospital Course: 85 y/o female with PMHx of CHF, HLD, HTN, A fib admitted with persistent SOB, wheezing, and decreased oxygen saturation most likely secondary to allergic reaction from Flu vaccine given last week vs Viral infection. CXR: no significant pleural effusion identified, no active disease. Chest CT showed evidence of lower airway disease/bronchitis, Pneumonitis. During admission patient was managed with oxygen via NC, scheduled bronchodilators, and steroids. Pulmonology, Dr. Anna, was consulted. As per Coding Coordinator recommendations patient was started on Advair diskus Q 12 to continue for 2-3 weeks after discharge, and antibiotic to continue for 5 more days after discharge. Sputum culture showed normal sergei. During admission patient was afebrile and with stable normal vital signs. Slightly leukocytosis on admission resolved. Respiratory status improved on admission. Patient was cleared by Dr. Anna and Dr. Pathak for being discharged today with outpatient f/u in 1 week with PMD, Dr. Gooden, and Pulmonology, Dr. Anna in 1 week. - Date & Time of H&P Date of H&P: 10/28/16 Time of H&P: 20:35 Discharge Exam - Head Exam Head Exam: ATRAUMATIC, NORMOCEPHALIC - ENT Exam ENT Exam: Mucous Membranes Moist - Respiratory Exam Respiratory Exam: Rhonchi (scant diffuse rhonchi bilateral), NORMAL BREATHING PATTERN. absent: Accessory Muscle Use, Chest Wall Tenderness, Rales, Respiratory Distress, Stridor - Cardiovascular Exam Cardiovascular Exam: REGULAR RHYTHM, +S1, +S2 - GI/Abdominal Exam GI & Abdominal Exam: Normal Bowel Sounds, Soft. absent: Distended, Guarding, Tenderness - Extremities Exam Extremities exam: normal inspection Additional comments: no edema in lower extremities noted, no calves tenderness - Neurological Exam Neurological exam: Alert, Oriented x3 Discharge Plan - Discharge Medications Prescriptions: Albuterol HFA [Ventolin HFA 90 mcg/actuation (8 g)] 2 puff IH [id number] PRN #1 puff PRN Reason: Wheezing Azithromycin [Zithromax] 250 mg PO DAILY #5 tab Fluticasone/Salmeterol 250/50 [Advair Diskus 250/50] 1 puff IH Q12 #1 puff guaiFENesin/Dextromethorphan [guaiFENesin-DM] 10 ml PO Q8 PRN #1 [facility] PRN Reason: Cough predniSONE [predniSONE Tab] 5 mg PO DAILY #10 tab - Follow Up Plan Condition: STABLE Disposition: HOME/ ROUTINE Instructions: Ipratropium/Albuterol (By breathing), Heart Failure (DC), COPD ( Chronic Obstructive Pulmonary Disease) (DC) Additional Instructions: F/u with PMD, Dr. Gooden, in 1 week F/U with Dr. Anna in 1 week. Referrals: Joe Rodriguez MD [Staff Provider] - <Rosas Pathak - Last Filed: 11/04/16 07:05> Provider - Provider Date of Admission: 10/29/16 09:02 Attending physician: Asim Gooden MD Hospital Course - Lab Results Lab Results: Micro Results 10/29/16 18:03 Sputum Induced Gram Stain - Final 10/29/16 18:03 Sputum Induced Sputum Culture - Final NORMAL ORAL SERGEI Most Recent Lab Values WBC 9.5 K/uL (4.8-10.8) 10/30/16 06:50 RBC 4.47 Mil/uL (3.80-5.20) 10/30/16 06:50 Hgb 12.9 g/dL (12.0-16.0) 10/30/16 06:50 Hct 40.0 % (34.0-47.0) 10/30/16 06:50 MCV 89.6 fl (81.0-99.0) 10/30/16 06:50 MCH 28.8 pg (27.0-31.0) 10/30/16 06:50 MCHC 32.2 g/dL (33.0-37.0) L 10/30/16 06:50 RDW 15.0 % (11.5-14.5) H 10/30/16 06:50 Plt Count 308 K/uL (130-400) 10/30/16 06:50 MPV 7.8 fl (7.2-11.7) 10/28/16 16:12 Neut % (Auto) 69.4 % (50.0-75.0) 10/28/16 16:12 Lymph % (Auto) 13.9 % (20.0-40.0) L 10/28/16 16:12 [place] % (Auto) 12.1 % (0.0-10.0) H 10/28/16 16:12 Eos % (Auto) 4.0 % (0.0-4.0) 10/28/16 16:12 Baso % (Auto) 0.6 % (0.0-2.0) 10/28/16 16:12 Neut # 7.6 K/uL (1.8-7.0) H 10/28/16 16:12 Lymph # 1.5 K/uL (1.0-4.3) 10/28/16 16:12 [place] # 1.3 K/uL (0.0-0.8) H 10/28/16 16:12 Eos # 0.4 K/uL (0.0-0.7) 10/28/16 16:12 Baso # 0.1 K/uL (0.0-0.2) 10/28/16 16:12 PT 18.4 Seconds (9.8-13.1) H 10/29/16 07:15 INR 1.8 (0.9-1.2) H 10/29/16 07:15 APTT 32.7 Seconds (25.6-37.1) 10/29/16 07:15 Sodium 140 mmol/l (132-148) 10/30/16 06:50 Potassium 4.2 MMOL/L (3.6-5.0) 10/30/16 06:50 Chloride 103 mmol/L (98-107) 10/30/16 06:50 Carbon Dioxide 27 mmol/L (22-30) 10/30/16 06:50 Anion Gap 14 (10-20) 10/30/16 06:50 BUN 23 mg/dl (7-17) H 10/30/16 06:50 Creatinine 0.8 mg/dL (0.7-1.2) 10/30/16 06:50 Est GFR ( Amer) > 60 10/30/16 06:50 Est GFR (Non-Af Amer) > 60 10/30/16 06:50 Random Glucose 85 mg/dL (65-105) 10/30/16 06:50 Calcium 9.2 mg/dL (8.4-10.2) 10/30/16 06:50 Total Bilirubin 0.6 mg/dl (0.2-1.3) 10/28/16 16:12 AST 26 U/L (14-36) 10/28/16 16:12 ALT 29 U/L (9-52) 10/28/16 16:12 Alkaline Phosphatase 92 U/L (38-126) 10/28/16 16:12 Troponin I 0.0360 ng/mL (0.00-0.120) 10/28/16 16:12 NT-Pro-B Natriuret Pep 5160 pg/ml (0-900) H 10/30/16 06:50 Total Protein 7.5 G/DL (6.3-8.2) 10/28/16 16:12 Albumin 4.0 g/dL (3.5-5.0) 10/28/16 16:12 Globulin 3.5 gm/dL (2.2-3.9) 10/28/16 16:12 Albumin/Globulin Ratio 1.1 (1.0-2.1) 10/28/16 16:12 Attending/Attestation - Attestation I have personally seen and examined this patient.: Yes I have fully participated in the care of the patient.: Yes I have reviewed all pertinent clinical information, including history, physical exam and plan: Yes
[2016-11-01] MEDS: Potassium Chloride 20 mEq ER Tab PO SCH (09:53)
[2016-11-01] MEDS: Azithromycin 500 MG in Sodium Chloride 0.9% 250 ML IVPB SCH (09:58)
[2016-11-01] MEDS: Fluticasone-Salmeterol 250-50mcg Diskus IH SCH (10:00)
--- NOTE | 2016-11-01 11:27 | CP.PCM.PN ---
Subjective - Date & Time of Evaluation Date of Evaluation: 11/01/16 Time of Evaluation: 11:25 - Subjective Subjective: Feeling well, anxious for discharge. Occasional cough remains with scant sputum. Sonorous and sibilant rhonchi present in LL's bilaterally. No wheezes or bronchial breath sounds. Vital signs are stable. Agree with discharge plan. Objective - Vital Signs/Intake and Output Vital Signs (last 24 hours): Temp Pulse Resp BP Pulse Ox 98.5 F 66 0 L 123/80 99 11/01/16 08:18 11/01/16 09:48 11/01/16 08:18 11/01/16 09:51 11/01/16 08:18 Intake and Output: 10/31/16 11/01/16 23:59 11:59 Intake Total 1650 Balance 1650 - Medications Medications: Current Medications Acetaminophen (Tylenol 325mg Tab) 650 mg PO Q6 PRN PRN Reason: other Last Admin: 10/31/16 06:06 Dose: 650 mg Albuterol Sulfate (Albuterol 0.083% Inhal Billie (2.5 Mg/3 Ml) Ud) 2.5 mg INH RQ4 PRN PRN Reason: Shortness of Breath Atorvastatin Calcium (Lipitor) 20 mg PO HS [facility] Last Admin: 10/31/16 21:02 Dose: 20 mg Carvedilol (Coreg) 3.125 mg PO Q12H [facility] Last Admin: 11/01/16 09:48 Dose: 3.125 mg Furosemide (Lasix) 20 mg PO DAILY [facility] Last Admin: 11/01/16 09:51 Dose: 20 mg Azithromycin 500 mg/ Sodium (Chloride) 250 mls @ 250 mls/hr IVPB DAILY [facility] Last Admin: 11/01/16 09:58 Dose: 250 mls/hr Potassium Chloride (K-Dur 20 Meq Er Tab) 20 meq PO DAILY [facility] Last Admin: 11/01/16 09:53 Dose: 20 meq Prednisone (Prednisone Tab) 15 mg PO DAILY [facility] Last Admin: 11/01/16 09:52 Dose: 15 mg Risperidone (Risperdal Tab) 0.25 mg PO HS [facility] Last Admin: 10/31/16 21:02 Dose: 0.25 mg Rivaroxaban (Xarelto) 20 mg PO DAILY [facility] PRN Reason: Protocol Last Admin: 11/01/16 09:49 Dose: 20 mg Fluticasone/Salmeterol (Advair Diskus 250/50) 1 puff IH Q12 [facility] Last Admin: 11/01/16 10:00 Dose: 1 puff - Labs Labs: 10/30/16 06:50 10/30/16 06:50 PT 18.4 Seconds (9.8-13.1) H 10/29/16 07:15 INR 1.8 (0.9-1.2) H 10/29/16 07:15 APTT 32.7 Seconds (25.6-37.1) 10/29/16 07:15 Assessment and Plan (1) SOB (shortness of breath) Status: Acute (2) Bronchospasm with bronchitis, acute Status: Acute
== END 2016-11-01 13:04 | DRG 202 ==
LOC: H.ER 14:46 → H.ERHOLD 17:46 → H.TEL 18:41 → OBSVTOIN 10-29 09:02 → H.MEDSURG1 11-01 07:05
PROVIDERS: ADMIT Family Medicine; ATTEND Family Medicine
PROC: 3E0F7GC Introduction of Other Therapeutic Substance into Respiratory Tract, Via Natural or Artificial Opening (ICD-10-PCS; principal; 2016-10-29)
DX: J20.9 Acute bronchitis, unspecified (principal); J18.9 Pneumonia, unspecified organism; I11.0 Hypertensive heart disease with heart failure; J44.0 Chronic obstructive pulmonary disease with (acute) lower respiratory infection; I42.1 Obstructive hypertrophic cardiomyopathy; I50.32 Chronic diastolic (congestive) heart failure; J47.0 Bronchiectasis with acute lower respiratory infection; I42.2 Other hypertrophic cardiomyopathy; J21.9 Acute bronchiolitis, unspecified; F20.9 Schizophrenia, unspecified; E78.5 Hyperlipidemia, unspecified; E78.00 Pure hypercholesterolemia, unspecified; E87.6 Hypokalemia; I25.10 Atherosclerotic heart disease of native coronary artery without angina pectoris; I25.2 Old myocardial infarction; K57.90 Diverticulosis of intestine, part unspecified, without perforation or abscess without bleeding; Z79.01 Long term (current) use of anticoagulants; Z79.899 Other long term (current) drug therapy; Z87.01 Personal history of pneumonia (recurrent); Z95.0 Presence of cardiac pacemaker; Z95.810 Presence of automatic (implantable) cardiac defibrillator; F32.9 Major depressive disorder, single episode, unspecified; F41.9 Anxiety disorder, unspecified; M19.90 Unspecified osteoarthritis, unspecified site; R01.1 Cardiac murmur, unspecified; R06.2 Wheezing; T50.B95A Adverse effect of other viral vaccines, initial encounter; I48.2 Chronic atrial fibrillation

== ENCOUNTER 2018-05-25 13:17 | Emergency (ER) | payer MEDICARE ==
[2018-05-25 13:18] VITALS: PULSE 161; BMI 29.2
--- NOTE | 2018-05-25 14:49 | ED PDOC ---
HPI: Female Pain Time Seen by Provider: 05/25/18 14:24 Chief Complaint (Nursing): Female Genitourinary Chief Complaint (Provider): hematuria History Per: Patient History/Exam Limitations: no limitations Onset/Duration Of Symptoms: Days (1 (started last night)) Current Symptoms Are (Timing): Still Present Severity: Mild Quality Of Discomfort: denies: Sharp, Dull, Aching Associated Symptoms: Urinary Symptoms (burning). denies: Fever, Chills, Nausea, Vomiting, Diarrhea, Loss Of Appetite, Back Pain, Chest Pain, Constipation, Other (vaginal bleeding) Past Medical History Reviewed: Historical Data, Nursing Documentation, Vital Signs Vital Signs: Last Vital Signs Temp 98.6 F 05/25/18 14:17 Pulse 66 05/25/18 14:17 Resp 16 05/25/18 14:17 BP 129/73 05/25/18 14:17 Pulse Ox 94 L 05/25/18 14:17 - Medical History PMH: Anxiety, Arthritis, Atrial Fibrillation, CAD, Cardia Arrhythmia, CHF, COPD, Depression, Diverticulitis, Fractures (right knee patella), HTN, H ypercholesterolemia, Pneumonia, Schizophrenia Denies: Anemia, HIV, Chronic Kidney Disease - Surgical History Surgical History: Pacemaker Other surgeries: Knee surgery - Family History Family History: States: Hypertension - Social History Current smoker - smoking cessation education provided: No - Immunization History Hx Tetanus Toxoid Vaccination: No Hx Influenza Vaccination: No Hx Pneumococcal Vaccination: No - Home Medications Home Medications: Ambulatory Orders Medication Instructions Recorded Carvedilol [Coreg] 3.125 mg PO Q12H 07/18/15 Furosemide [Lasix] 20 mg PO DAILY 07/18/15 Potassium Chloride [K-Dur 20 mEq 20 meq PO DAILY 07/18/15 ER Tab] Simvastatin 20 mg PO HS 07/18/15 risperiDONE [RisperDAL Tab] 0.25 mg PO HS tab 08/08/16 Rivaroxaban [Xarelto] 20 mg PO DAILY 10/28/16 Albuterol HFA [Ventolin HFA 90 2 puff IH [id number] PRN #1 puff 11/01/16 mcg/actuation (8 g)] Azithromycin [Zithromax] 250 mg PO DAILY #5 tab 11/01/16 Fluticasone/Salmeterol 250/50 1 puff IH Q12 #1 puff 11/01/16 [Advair Diskus 250/50] guaiFENesin/Dextromethorphan 10 ml PO Q8 PRN #1 udc 11/01/16 [guaiFENesin-DM] predniSONE [predniSONE Tab] 5 mg PO DAILY #10 tab 11/01/16 Nitrofurantoin Macrocrystals 100 mg PO BID #14 cap 05/25/18 [Macrobid] - Allergies Allergies/Adverse Reactions: Allergies Allergy/AdvReac Type Severity Reaction Status Date / Time No Known Allergies Allergy Verified 05/25/18 14:17 Review of Systems ROS Statement: Except As Marked, All Systems Reviewed And Found Negative (and as per HPI) Genitourinary Female: Positive for: Dysuria, Frequency, Hematuria. Negative for: Incontinence, Vaginal Discharge, Vaginal Bleeding, Pelvic Pain Musculoskeletal: Negative for: Back Pain Physical Exam - Reviewed Nursing Documentation Reviewed: Yes Vital Signs Reviewed: Yes - Physical Exam Appears: Positive for: Non-toxic, No Acute Distress Head Exam: Positive for: ATRAUMATIC, NORMOCEPHALIC Skin: Positive for: Warm, Dry Eye Exam: Positive for: EOMI, PERRL ENT: Positive for: Other (tacky mucus membranes) Neck: Positive for: Painless ROM, Supple Cardiovascular/Chest: Positive for: Regular Rate, Rhythm Respiratory: Positive for: Normal Breath Sounds. Negative for: Respiratory Distress Gastrointestinal/Abdominal: Positive for: Soft, Tenderness (mild suprapubic ttp to deep palpationg). Negative for: Mass, Distended, Guarding, Rebound, Hernia Back: Positive for: Normal Inspection, Other (mild kyphosis). Negative for: Decreased ROM Extremity: Positive for: Normal ROM. Negative for: Deformity Lymphatic: Negative for: Adenopathy Neurological/Psych: Positive for: Awake, Alert. Negative for: Motor/Sensory Deficits - Laboratory Results Urine dip results: Positive for: Leukocyte Esterase, Blood - ECG O2 Sat by Pulse Oximetry: 94 Disposition - Clinical Impression Clinical Impression: UTI (urinary tract infection) Counseled Patient/Family Regarding: Studies Performed, Diagnosis - Disposition Referrals: Asim Gooden MD [Staff Provider] - 05/27/18 (FOLLOWUP WITH DR GOODEN IN 24-48 HOURS FOR REEVALUATION) Disposition: Routine/Home Disposition Time: 15:27 Condition: STABLE Prescriptions: Nitrofurantoin Macrocrystals [Macrobid] 100 mg PO BID #14 cap Instructions: Urinary Tract Infection, Adult (DC), Blood in the Urine (Hematuria), Adult (DC)
[2018-05-25 15:25] LABS: SQUAMOUS EPITHIAL < 1 /hpf (0-5); URINE BACTERIA RARE (<OCC); URINE BILIRUBIN NEGATIVE (NEGATIVE); URINE BLOOD MODERATE (NEGATIVE); URINE GLUCOSE (UA) NEG (NEGATIVE); URINE LEUKOCYTE ESTERASE MOD Leu/uL (Negative); URINE PROTEIN NEGATIVE (NEGATIVE); URINE UROBILINOGEN 0.2-1.0 mg/dL (0.2-1.0)
[2018-05-25 15:37] LABS: URINE CLARITY SLIGHT-CLOUDY (Clear); URINE COLOR YELLOW (YELLOW)
[2018-05-25 16:01] VITALS: BP 156/71; PULSE 60; RESP 20; TEMP 98.3; O2SAT 97
== END 2018-05-25 16:00 | disposition home or self-care (01) ==
LOC: H.ER 13:17
DX: N39.0 Urinary tract infection, site not specified (principal); B96.4 Proteus (mirabilis) (morganii) as the cause of diseases classified elsewhere; E78.00 Pure hypercholesterolemia, unspecified; I11.0 Hypertensive heart disease with heart failure; Z95.0 Presence of cardiac pacemaker